=== PATIENT | male | born 1955 | race Caucasian/White ===

== ENCOUNTER 2020-08-04 22:08 | Emergency (ER) | payer OTHER, MEDICARE ==
[2020-08-04] MEDS ORDERED: Betamethasone Valerate 0.1% Crm 15 GM Tube TOP ONE (22:23)
[2020-08-04] MEDS ORDERED: Famotidine 20 MG Tab PO ONE (22:23)
[2020-08-04] MEDS ORDERED: predniSONE 20 MG Tab PO ONE (22:23)
[2020-08-04] MEDS ORDERED: hydrOXYzine HCl 50 MG Tab PO ONE (22:24)
[2020-08-04 22:25] VITALS: BP 138/91; PULSE 88
--- NOTE | 2020-08-04 22:28 | EDM.PDOC ---
ED HPI GENERAL MEDICAL PROBLEM - General Chief Complaint: Skin Complaint Stated Complaint: ALLERGIC REACTION/HIVES Time Seen by Provider: 08/04/20 22:18 Source of Information: Reports: Patient History Limitations: Reports: No Limitations - History of Present Illness INITIAL COMMENTS - FREE TEXT/NARRATIVE: 64-year-old male presents to the ED with complaints of a severely pruritic rash involving the volar aspect of both arms and particular the antecubital fossa's bilaterally perhaps worse on the right side as compared to the left. He states it started between his fingers a week or 10 days ago. It has progressed and severity and intensity to the point that he cannot sleep. Benadryl is not working to control the itch. Currently it is a bad he cannot sleep. Patient feels that it may be spreading to his abdominal wall as well. He has no true hives or urticaria. 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 Onset: Gradual Onset Date: 07/25/20 Duration: Day(s):, Getting Worse Location: Reports: Upper Extremity, Left, Upper Extremity, Right (Ulnar aspect of both forearms in particular the antecubital fossa.) Quality: Reports: Burning, Other Severity: Severe (Ear pruritus) Improves with: Reports: None Worsens with: Reports: Other (Scratching) Context: Denies: Activity, Exercise, Lifting, Sick Contact, Trauma, Other Associated Symptoms: Reports: Cough. Denies: No Other Symptoms, Confusion, Chest Pain (Smoker cough), cough w sputum, Diaphoresis, Fever/Chills, Headaches, Loss of Appetite, Malaise, Nausea/Vomiting Treatments OUTSEWER: Reports: Other (see below) (Been placing cream on the rash which seems to be making it worse. He does not know the name of this however.) - Related Data Allergies Allergy/AdvReac Type Severity Reaction Status Date / Time No Known Allergies Allergy Verified 05/18/16 13:26 Home Meds: Home Meds Betamethasone Valerate 45 gm TP BID PRN #1 tube 08/04/20 [Rx] hydrOXYzine HCL [Hydroxyzine HCl] 50 mg PO Q6H PRN #16 tablet 08/04/20 [Rx] predniSONE [Prednisone] 20 mg PO ASDIRECTED #18 tablet 08/04/20 [Rx] Past Medical History - Past Health History Medical/Surgical History: Denies Medical/Surgical History Musculoskeletal History: Reports: Back Pain, Chronic, Other (See Below) Other Musculoskeletal History: herniated discs causing disability, h/o ankle wound on left ankle, B rotator cuff repair.. Vicious dog bite attack affecting the volar aspect of his right arm which healed by secondary intention. Did suffer muscle damage from this injury as well. Endocrine/Metabolic History: Reports: Diabetes, Type II Social & Family History - Living Situation & Occupation Living situation: Reports: Occupation: Disabled ED ROS GENERAL - Review of Systems Review Of Systems: See Below Constitutional: Reports: Malaise, Weakness, Fatigue (For not being able to sleep.). Denies: Fever, Chills HEENT: Reports: Glasses (Glasses for reading.) Respiratory: Reports: Cough (Occasional nonproductive cough). Denies: Shortness of Breath, Wheezing, Pleuritic Chest Pain Cardiovascular: Denies: Chest Pain, Blood Pressure Problem Endocrine: Reports: Fatigue GI/Abdominal: Denies: Abdominal Pain, Constipation : Reports: Frequency, Other (Nocturia x2.) Musculoskeletal: Reports: Neck Pain (Severe degenerative arthritic change neck and lower back with herniated disks.), Arm Pain (Arm pain), Back Pain Skin: Reports: Other (Both volar forearms and antecubital fossa's.) Neurological: Reports: No Symptoms Psychiatric: Reports: Anxiety, Depression Hematologic/Lymphatic: Reports: No Symptoms Immunologic: Reports: No Symptoms ED EXAM, SKIN/RASH Exam: See Below Exam Limited By: No Limitations General Appearance: Alert, WD/WN, No Apparent Distress, Other (Temperature is 36.4. Heart rate 88 and sinus respiratory is 18 BP 138/91 2 sats 97% room air.) Eye Exam: Bilateral Eye: Normal Inspection (No scleral icterus or blepharal pallor.) Respiratory/Chest: No Respiratory Distress, Lungs Clear, Normal Breath Sounds Cardiovascular: Normal Peripheral Pulses, Regular Rate, Rhythm, No Edema, No Gallop, No Murmur, No Rub Peripheral Pulses: 2+: Carotid (L), Carotid (R), Radial (L), Radial (R) Extremities: Other (Patient has evidence of traumatic injuries to the volar aspect of his mid right forearm. He reports this was from a dog bite many years ago n that had to be repaired surgically. He did suffer some muscle damage to the volar forearm muscles.) Neurological: Alert, Oriented, CN II-XII Intact, Normal Cognition Psychiatric: Normal Affect, Normal Mood Skin: Warm, Dry, Intact, Erythema (She has marked erythema of the entire volar aspect of his right forearm from wrist creases to the antecubital fossa in particular. Skin is somewhat lichenified and thickened in the antecubital fossa indicating this rash has been present for greater than a few weeks. There is slight amount of silver scaling laterally suggesting possibility of psoriasis. Similar findings on the left volar forearm but not to the same degree of severity affecting primarily the antecubital fossa. There is also a very faint erythematous rash on the left lateral abdominal wall again secondary to dry skin. This rash represents a contact dermatitis. At this time we are not able to establish what has gone on to his skin to set off the allergic reaction.) Location, Skin: Upper Extremity, Right, Upper Extremity, Left Characteristics: Macular, Confluent Associated features: Warmth, Inflammation. No: Crusting, Weeping Course - Vital Signs Last Recorded V/S: Last Vital Signs Temp 36.4 C 08/04/20 22:19 Pulse 88 08/04/20 22:19 Resp 18 08/04/20 22:19 BP 138/91 H 08/04/20 22:19 Pulse Ox 97 08/04/20 22:19 - Orders/Labs/Meds Meds: Medications Discontinued Medications Generic Name Dose Route Start Last Admin Trade Name Freq PRN Reason Stop Dose Admin Betamethasone Valerate 30 gm 08/04/20 22:23 Valisone 0.1% [facility] 08/04/20 22:24 ONETIME ONE Famotidine 20 mg 08/04/20 22:23 08/04/20 22:36 Pepcid PO 08/04/20 22:24 20 mg ONETIME ONE Administration Hydroxyzine HCl 50 mg 08/04/20 22:24 08/04/20 22:36 Atarax PO 08/04/20 22:25 50 mg ONETIME ONE Administration Prednisone 30 mg 08/04/20 22:23 08/04/20 22:36 Prednisone PO 08/04/20 22:24 30 mg ONETIME ONE Administration Triamcinolone Acetonide 15 gm 08/04/20 22:38 08/04/20 22:40 Triamcinolone Acetonide 0.1% Crm TOP 08/04/20 22:39 1 applic ONETIME ONE Administration Triamcinolone Acetonide 15 gm 08/04/20 22:38 08/04/20 22:40 Triamcinolone Acetonide 0.1% Crm TOP 08/04/20 22:39 Not Given ONETIME ONE - Radiology Interpretation Free Text/Narrative:: 64-year-old male presents to the ED for evaluation of skin rash to the volar aspect of both forearms and affecting particular the antecubital fossa's of both arms. Rash has been present for greater than 2 weeks and is progressively getting worse. Examination reveals marked erythema with slight lichenification in the antecubital fossa's indicating some degree of chronicity. It represents a contact dermatitis to an unknown substance. Patient will be treated with prednisone 30 mg by mouth now then 20 mg twice daily for 6 days then's 20 mg once daily every morning for another 6 days. Topical thyroid in the ED will be triamcinolone as this is all we have in the hospital. I have written a prescription for betamethasone valerate 0.1% cream to be applied to the area twice daily until the rash is cleared up. Atarax tablets 50 mg every 6 hours needed to relieve itch until rash comes under control. Follow-up advised to the [facility] clinic if not markedly improved in 7 days time Departure - Departure Time of Disposition: 22:51 Disposition: Home, Self-Care 01 Condition: Fair Clinical Impression: Contact dermatitis and eczema - Discharge Information *PRESCRIPTION DRUG MONITORING PROGRAM REVIEWED*: Not Applicable *COPY OF PRESCRIPTION DRUG MONITORING REPORT IN PATIENT SISSY: Not Applicable Prescriptions: Betamethasone Valerate 45 gm TP BID PRN #1 tube PRN Reason: Skin rash hydrOXYzine HCL [Hydroxyzine HCl] 50 mg PO Q6H PRN #16 tablet PRN Reason: Itch relief predniSONE [Prednisone] 20 mg PO ASDIRECTED #18 tablet Referrals: Ramya Corley MD [Primary Care Provider] - Forms: ED Department Discharge Additional Instructions: Evaluation in the emergency room tonight in regards to a contact dermatitis or eczematous rash involving the hands and the volar aspect of both forearms and the particular the antecubital fossa's which is at your elbow joint. Some irritant has gotten onto the skin and soaked into the skin which is set this rash off. This can be something simple as dish soap or any other soap or highly perfumed product. It can be a petrochemical such as diesel fuel, gasoline or other solvents used to clean up oil/ grease. At this time suggest placing only the prescribed medications on the rash and taking oral medications as prescribed to bring it under control. Prednisone tablets to be taken twice daily usually with breakfast and supper meals for 6 days and then once daily in the morning for another 6 days to make sure the rash completely goes away. Topical medication is betamethasone cream to be applied twice daily with one the application is to be used at bedtime. Atarax tablets 50 mg can be taken every 6 hours as needed for itch relief and hopefully will not be required for more than a couple of days as they usually cause sedation. Should notice a dramatic improvement in the rash in the next 48 to 72 hours. Suggest no soaps on the affected skin or if needed only Ivory or Dove hypoallergenic soap. Excessive bathing or washing the area will also dry out the skin and make the rash worse. Sometimes detergents used to clean calls can remain within the clothing and silk into the skin causing this type of rash. Sometimes clothing has to be rinsed twice when washed to make sure that all the soap is out of the material that touches the skin. Aloe up with personal care physician if further problems continue. Sepsis Event Note (ED) - Focused Exam Vital Signs: Vital Signs Temp Pulse Resp BP Pulse Ox 08/04/20 22:19 36.4 C 88 18 138/91 H 97
[2020-08-04] MEDS ORDERED: Triamcinolone Acetonide 0.1% Crm 15 GM Tube TOP ONE ×2 (22:38)
== END 2020-08-04 22:54 | disposition home or self-care (01) ==
LOC: JD.ED 22:08
DX: L25.9 Unspecified contact dermatitis, unspecified cause (principal); E11.9 Type 2 diabetes mellitus without complications
CPT/HCPCS: 99282; A9270; J7512; 99283

== ENCOUNTER 2020-09-22 13:59 | Emergency (ER) | payer OTHER, MEDICARE ==
[2020-09-22] MEDS ORDERED: Sodium Chloride 0.9% 10 ML Syringe FLUSH PRN (14:44)
--- NOTE | 2020-09-22 15:02 | EDM.PDOC ---
ED HPI GENERAL MEDICAL PROBLEM - General Chief Complaint: Respiratory Problem Stated Complaint: COUGH Time Seen by Provider: 09/22/20 14:30 Source of Information: Reports: Patient, RN Notes Reviewed - History of Present Illness INITIAL COMMENTS - FREE TEXT/NARRATIVE: 65 yr old male with cough, chills, dyspnea yesterday that continues today. No known exposure to covid but has been out shopping and has been around some people. Has a smoking hx. No known or documented hx of Htn, diabetes, CAD. He states his chest does feel mildly heavy. Generalized Pain Score (Numeric/FACES): 10 - Related Data Allergies Allergy/AdvReac Type Severity Reaction Status Date / Time No Known Allergies Allergy Verified 05/18/16 13:26 Home Meds: Home Meds Albuterol Sulfate [Proventil Hfa] 1 puff INH ASDIRECTED 09/22/20 [History] Cholecalciferol (Vitamin D3) [Vitamin D3] 1 tab PO DAILY 09/22/20 [History] Loratadine [Claritin] 10 mg PO DAILY 09/22/20 [History] Magnesium Salicylate/Caffeine [Diurex Water Pills] 1 tab PO DAILY 09/22/20 [History] [place] Xl 1 tab PO DAILY 09/22/20 [History] Vitamin E 400 unit PO DAILY 09/22/20 [History] Past Medical History - Past Health History Medical/Surgical History: Denies Medical/Surgical History Cardiovascular History: Reports: Other (See Below) Other Cardiovascular History: retains fluid-on OTC med called water pills Musculoskeletal History: Reports: Back Pain, Chronic, Other (See Below) Other Musculoskeletal History: herniated discs causing disability, h/o ankle wound on left ankle, B rotator cuff repair Psychiatric History: Reports: Anxiety, Depression Endocrine/Metabolic History: Reports: Diabetes, Type II Other Endocrine/Metabolic History: borderline-on no meds - Past Surgical History HEENT Surgical History: Reports: Tonsillectomy Social & Family History - Tobacco Use Tobacco Use Status *Q: Current Every Day Tobacco User Years of Tobacco use: 33 Packs/Tins Daily: 0.3 - Caffeine Use Caffeine Use: Reports: None - Recreational Drug Use Recreational Drug Use: No - Living Situation & Occupation Living situation: Reports: Occupation: Disabled ED ROS GENERAL - Review of Systems Review Of Systems: See Below Constitutional: Reports: Chills. Denies: Fever HEENT: Denies: Sinus Problem, Throat Pain Respiratory: Reports: Shortness of Breath, Cough Cardiovascular: Reports: Chest Pain GI/Abdominal: Reports: Constipation. Denies: Abdominal Pain, Diarrhea, Nausea, Vomiting Musculoskeletal: Reports: Other (generalized achiness) Skin: Reports: No Symptoms Neurological: Reports: No Symptoms ED EXAM, GENERAL - Physical Exam Exam: See Below General Appearance: Alert Throat/Mouth: Normal Inspection Head: Atraumatic Neck: Supple, Other (No JVD) Respiratory/Chest: No Respiratory Distress, Lungs Clear, Normal Breath Sounds. No: Rhonchi, Wheezing Cardiovascular: Regular Rate, Rhythm GI/Abdominal: Soft, Non-Tender Extremities: No: Pedal Edema, Leg Pain, Increased Warmth, Redness Neurological: Alert, Oriented, No Motor/Sensory Deficits Skin Exam: Warm, Dry, Normal Color, No Rash #1 Interpretation EKG Date: 09/22/20 Rhythm: NSR [place]: Normal P-Wave: Present QRS: LBBB ST-T: Elevated (mild st elevation V2-5) Course - Vital Signs Last Recorded V/S: Last Vital Signs Temp 99.3 F 09/22/20 20:53 Pulse 102 H 09/22/20 20:53 Resp 20 09/22/20 20:53 BP 119/81 09/22/20 20:53 Pulse Ox 95 09/22/20 20:53 - Orders/Labs/Meds Orders: Active Orders 24 hr Category Date Time Status Peripheral IV Insertion Adult [OM.PC] Stat Oth 09/22/20 14:44 Ordered Labs: Laboratory Tests 09/22/20 09/22/20 09/22/20 Range/Units 14:55 14:55 14:55 WBC 9.04 (4.23-9.07) K/mm3 RBC 4.61 L (4.63-6.08) M/mm3 Hgb 13.9 (13.7-17.5) gm/dl Hct 44.9 (40.1-51.0) % MCV 97.4 H (79.0-92.2) fl MCH 30.2 (25.7-32.2) pg MCHC 31.0 L (32.2-35.5) g/dl RDW Std Deviation 50.3 H (35.1-43.9) fL Plt Count 229 (163-337) K/mm3 MPV 10.0 (9.4-12.3) fl Neut % (Auto) 72.7 H (34.0-67.9) % Lymph % (Auto) 13.8 L (21.8-53.1) % [place] % (Auto) 11.1 (5.3-12.2) % Eos % (Auto) 1.5 (0.8-7.0) Baso % (Auto) 0.6 (0.1-1.2) % Neut # (Auto) 6.57 H (1.78-5.38) K/mm3 Lymph # (Auto) 1.25 L (1.32-3.57) K/mm3 [place] # (Auto) 1.00 H (0.30-0.82) K/mm3 Eos # (Auto) 0.14 (0.04-0.54) K/mm3 Baso # (Auto) 0.05 (0.01-0.08) K/mm3 D-Dimer, Quantitative 1.78 H (0.19-0.50) mg/L Sodium (136-145) mEq/L Potassium (3.5-5.1) mEq/L Chloride (98-107) mEq/L Carbon Dioxide (21-32) mEq/L Anion Gap (5-15) BUN (7-18) mg/dL Creatinine (0.7-1.3) mg/dL Est Cr Clr Drug Dosing mL/min Estimated GFR (MDRD) (>60) mL/min BUN/Creatinine Ratio (14-18) Glucose (80-115) mg/dL Calcium (8.5-10.1) mg/dL Ferritin (26-388) ng/ml Total Bilirubin (0.2-1.0) mg/dL AST (15-37) U/L ALT (16-63) U/L Alkaline Phosphatase (46-116) U/L Lactate Dehydrogenase (85-227) U/L Troponin I (0.00-0.056) ng/mL C-Reactive Protein 2.5 H* (<1.0) mg/dL NT-Pro-B Natriuret Pep (0-125) pg/mL Total Protein (6.4-8.2) g/dl Albumin (3.4-5.0) g/dl Globulin gm/dL Albumin/Globulin Ratio (1-2) SARS-CoV-2 RNA (ALFONZO) (NEGATIVE) 09/22/20 09/22/20 09/22/20 Range/Units 14:55 14:55 14:55 WBC (4.23-9.07) K/mm3 RBC (4.63-6.08) M/mm3 Hgb (13.7-17.5) gm/dl Hct (40.1-51.0) % MCV (79.0-92.2) fl MCH (25.7-32.2) pg MCHC (32.2-35.5) g/dl RDW Std Deviation (35.1-43.9) fL Plt Count (163-337) K/mm3 MPV (9.4-12.3) fl Neut % (Auto) (34.0-67.9) % Lymph % (Auto) (21.8-53.1) % [place] % (Auto) (5.3-12.2) % Eos % (Auto) (0.8-7.0) Baso % (Auto) (0.1-1.2) % Neut # (Auto) (1.78-5.38) K/mm3 Lymph # (Auto) (1.32-3.57) K/mm3 [place] # (Auto) (0.30-0.82) K/mm3 Eos # (Auto) (0.04-0.54) K/mm3 Baso # (Auto) (0.01-0.08) K/mm3 D-Dimer, Quantitative (0.19-0.50) mg/L Sodium 139 (136-145) mEq/L Potassium 3.9 (3.5-5.1) mEq/L Chloride 104 (98-107) mEq/L Carbon Dioxide 25 (21-32) mEq/L Anion Gap 13.9 (5-15) BUN 14 (7-18) mg/dL Creatinine 1.3 (0.7-1.3) mg/dL Est Cr Clr Drug Dosing 66.74 mL/min Estimated GFR (MDRD) 56 (>60) mL/min BUN/Creatinine Ratio 10.8 L (14-18) Glucose 161 H (80-115) mg/dL Calcium 8.9 (8.5-10.1) mg/dL Ferritin 72 (26-388) ng/ml Total Bilirubin 0.6 (0.2-1.0) mg/dL AST 20 (15-37) U/L ALT 35 (16-63) U/L Alkaline Phosphatase 84 (46-116) U/L Lactate Dehydrogenase 191 (85-227) U/L Troponin I 0.076 H* (0.00-0.056) ng/mL C-Reactive Protein (<1.0) mg/dL NT-Pro-B Natriuret Pep (0-125) pg/mL Total Protein 7.2 (6.4-8.2) g/dl Albumin 3.2 L (3.4-5.0) g/dl Globulin 4.0 gm/dL Albumin/Globulin Ratio 0.8 L (1-2) SARS-CoV-2 RNA (ALFONZO) (NEGATIVE) 09/22/20 09/22/20 09/22/20 Range/Units 14:55 16:38 16:50 WBC (4.23-9.07) K/mm3 RBC (4.63-6.08) M/mm3 Hgb (13.7-17.5) gm/dl Hct (40.1-51.0) % MCV (79.0-92.2) fl MCH (25.7-32.2) pg MCHC (32.2-35.5) g/dl RDW Std Deviation (35.1-43.9) fL Plt Count (163-337) K/mm3 MPV (9.4-12.3) fl Neut % (Auto) (34.0-67.9) % Lymph % (Auto) (21.8-53.1) % [place] % (Auto) (5.3-12.2) % Eos % (Auto) (0.8-7.0) Baso % (Auto) (0.1-1.2) % Neut # (Auto) (1.78-5.38) K/mm3 Lymph # (Auto) (1.32-3.57) K/mm3 [place] # (Auto) (0.30-0.82) K/mm3 Eos # (Auto) (0.04-0.54) K/mm3 Baso # (Auto) (0.01-0.08) K/mm3 D-Dimer, Quantitative (0.19-0.50) mg/L Sodium (136-145) mEq/L Potassium (3.5-5.1) mEq/L Chloride (98-107) mEq/L Carbon Dioxide (21-32) mEq/L Anion Gap (5-15) BUN (7-18) mg/dL Creatinine (0.7-1.3) mg/dL Est Cr Clr Drug Dosing mL/min Estimated GFR (MDRD) (>60) mL/min BUN/Creatinine Ratio (14-18) Glucose (80-115) mg/dL Calcium (8.5-10.1) mg/dL Ferritin (26-388) ng/ml Total Bilirubin (0.2-1.0) mg/dL AST (15-37) U/L ALT (16-63) U/L Alkaline Phosphatase (46-116) U/L Lactate Dehydrogenase (85-227) U/L Troponin I 0.067 H* (0.00-0.056) ng/mL C-Reactive Protein (<1.0) mg/dL NT-Pro-B Natriuret Pep 6059 H (0-125) pg/mL Total Protein (6.4-8.2) g/dl Albumin (3.4-5.0) g/dl Globulin gm/dL Albumin/Globulin Ratio (1-2) SARS-CoV-2 RNA (ALFONZO) Negative (NEGATIVE) Meds: Medications Discontinued Medications Generic Name Dose Route Start Last Admin Trade Name Freq PRN Reason Stop Dose Admin Aspirin 324 mg 09/22/20 18:20 09/22/20 18:46 Aspirin PO 09/22/20 18:21 324 mg ONETIME ONE Administration Heparin Sodium (Porcine) 5,000 units 09/22/20 19:20 09/22/20 19:46 Heparin Sodium IVPUSH 09/22/20 19:21 5,000 units .BOLUS ONE Administration Sodium Chloride 1,000 mls @ 999 mls/hr 09/22/20 16:30 09/22/20 16:31 Normal Saline IV 999 mls/hr ONETIME LEIGHA Administration Sodium Chloride 100 mls @ 60 mls/min 09/22/20 17:45 09/22/20 18:16 Normal Saline IV 60 mls/min ASDIRECTED LEIGHA Administration Heparin Sodium/Dextrose 25,000 units in 500 mls @ 37.557 mls/hr 09/22/20 19:30 09/22/20 19:49 Heparin 25,000 Units In D5w 500 Ml IV 18 units/kg/hr TITRATE LEIGHA 37.557 mls/hr Administration Protocol 18 UNITS/KG/HR Iopamidol 100 ml 09/22/20 17:42 09/22/20 18:15 Isovue-370 (76%) IVPUSH 09/22/20 17:43 100 ml ONETIME ONE Administration Sodium Chloride 10 ml 09/22/20 14:44 09/22/20 15:05 Saline Flush FLUSH 10 ml ASDIRECTED PRN Administration Keep Vein Open Sodium Chloride 10 ml 09/22/20 17:42 09/22/20 18:17 Saline Flush FLUSH 09/22/20 17:43 10 ml NOW STA Administration - Re-Assessments/Exams Free Text/Narrative Re-Assessment/Exam: 09/22/20 17:22. Trop came back elevated at .076. D dimer 1.78. CXR shows cardiomegally, mild pulmonary congestion, no definite infiltrates. waiting for a repeat trop. Have ordered CT pul angiogram. 18:00 repeat trop .067 so that is stable. covid screen did come back neg. Getting his CT pul angiogram at this time. 09/22/20 18:58. CT pul angio shows small pulmonary emboli R lower lung. I did discuss this with Dr Cooper, our Hospitalist personal injury specialist. He believes patient would be better served to go to [facility] with his elevated trop, mediastinal adenopathy, and CHF which is a change from 1 hr ago. 09/22/20 19:04. Have called both [facility], they are both on diversion. 09/22/20 19:48 have been visiting with [facility] to see if they can take him. Waiting to hear back from them. 09/22/20 20:[address] [place], [facility] does accept patient in transfer. We will send him fixed wing. He has had Heparin IV bolus, is now on a Heparin drip. Vitals have been stable. Departure - Departure Time of Disposition: 19:46 Disposition: DC/Tfer to Acute Hospital 02 Condition: Serious Clinical Impression: Mediastinal adenopathy Pulmonary embolism Qualifiers: Pulmonary embolism type: unspecified Chronicity: acute Acute cor pulmonale presence: unspecified Qualified Code(s): I26.99 - Other pulmonary embolism without acute cor pulmonale CHF (congestive heart failure) Qualifiers: Heart failure type: unspecified Heart failure chronicity: acute Qualified Code(s): I50.9 - Heart failure, unspecified - Discharge Information Referrals: Ramya Corley MD [Primary Care Provider] - Forms: ED Department Discharge - My Orders Last 24 Hours: My Active Orders 09/22/20 14:44 Peripheral IV Insertion Adult [OM.PC] Stat - Assessment/Plan Last 24 Hours: My Active Orders 09/22/20 14:44 Peripheral IV Insertion Adult [OM.PC] Stat
[2020-09-22] MEDS ORDERED: Sodium Chloride 0.9% 1,000 ML IV SCH (16:30)
[2020-09-22] MEDS ORDERED: Iopamidol 755 Mg/ML 100 ML Bottle IVPUSH ONE (17:42)
[2020-09-22] MEDS ORDERED: Sodium Chloride 0.9% 10 ML Syringe FLUSH STA (17:42)
[2020-09-22] MEDS ORDERED: Sodium Chloride 0.9% 100 ML IV SCH (17:45)
[2020-09-22] MEDS ORDERED: Aspirin 81 MG Tab.Chew PO ONE (18:20)
--- NOTE | 2020-09-22 18:41 | CT ---
CT chest Technique: Multiple axial sections were obtained through the chest. Study was performed with contrast. Study was also performed as a pulmonary angiogram protocol. Findings: Small pulmonary emboli are seen within the right lower lobe. No other pulmonary emboli are appreciated. Slightly prominent lymph nodes are seen within the mediastinum. Largest lymph node measures 2.0 cm. Aorta shows no aneurysm. Heart is slightly enlarged. Very minimal coronary artery calcification is noted. Small portion of the visualized upper abdominal structures show no discrete abnormality. Small right-sided pleural effusion is noted. Small portion of the left lung base is not included on the exam. Very mild atelectasis is seen adjacent to the pleural effusion. Bone window settings were reviewed which show scattered degenerative change within the spine. No acute osseous finding is appreciated. Impression: 1. Small pulmonary emboli within the right lower lung. Right sided pleural effusion is seen with mild right basilar atelectasis. 2. Heart is mildly enlarged with mild coronary artery calcification. 3. Slightly prominent lymph nodes within the mediastinum. These are nonspecific for change from previous disease versus early neoplasm. Diagnostic code #9
[2020-09-22] MEDS ORDERED: Heparin Sodium 5,000 Units/ML Vial IVPUSH ONE (19:20)
[2020-09-22] MEDS ORDERED: Heparin Sodium/D5W 25,000 UNITS/500 ML BAG IV SCH (19:30)
[2020-09-22 20:56] VITALS: BP 119/81; PULSE 102
--- NOTE | 2020-09-23 08:59 | CR ---
Chest: Portable view of the chest was obtained. Comparison: Prior chest x-ray of 09/28/19. Heart is enlarged. Upper mediastinum is within normal limits. Slight areas of atelectasis is seen with the left base. Pulmonary arteries are minimally congested. Lungs otherwise are clear. Bony structures are grossly intact. Impression: 1. Mild right basilar atelectasis. 2. Slight central pulmonary vascular congestion and cardiomegaly. Diagnostic code #2
== END 2020-09-22 21:10 ==
LOC: JD.ED 13:59
DX: I26.99 Other pulmonary embolism without acute cor pulmonale (principal); R59.0 Localized enlarged lymph nodes; I50.9 Heart failure, unspecified; E11.9 Type 2 diabetes mellitus without complications; F17.210 Nicotine dependence, cigarettes, uncomplicated; I44.7 Left bundle-branch block, unspecified; Z79.899 Other long term (current) drug therapy; Z20.828 Contact with and (suspected) exposure to other viral communicable diseases
CPT/HCPCS: 36415; 71045; 71275; 80053; 82728; 83615; 83880; 84484; 85025; 85379; 86140; 87635; 93005; 96365; 99285; A9270; J1644; J7030; Q9967; 93010; 99284; U0002

== ENCOUNTER 2021-03-01 08:45 | Inpatient (IN) | payer OTHER, MEDICARE ==
--- NOTE | 2021-03-01 09:10 | EDM.PDOC ---
ED HPI GENERAL MEDICAL PROBLEM - General Chief Complaint: Respiratory Problem Stated Complaint: SOB Time Seen by Provider: 03/01/21 09:09 Source of Information: Reports: Patient History Limitations: Reports: No Limitations - History of Present Illness INITIAL COMMENTS - FREE TEXT/NARRATIVE: 65-year-old male presents to the ED in respiratory distress. He states he has been spray painting numerous vehicles in the shop at home over the last few days and believes the fumes have made his lungs ill. Also reports that this will happen sometimes when the humidity increases. He used to be a heavy cigarette smoker. Currently has cut down to half pack a day. Cough is still bringing up whitish sputum. He has not had no COVID-19 illness. No fever or chills. O2 sats presentation to the ED were only 88%. Is up to 93--94% on 2 L/min by nasal cannula. He feels better already just some being on the oxygen. He was up all night because he cannot lie down to breathe. Denies any hemoptysis. No fever no chills. He has no documented history of congestive heart failure. [facility] on him in the past but he has never had one done. He therefore has no coronary artery stents. Onset: Gradual Onset Date: 02/27/21 Duration: Day(s):, Getting Worse Location: Reports: Chest (Dyspnea at rest.) Quality: Reports: Other (Shortness shortness of breath at rest worsened by) Severity: Severe (exertion.) Improves with: Reports: Rest Worsens with: Reports: Other (Worsened by movement.) Context: Denies: Activity, Exercise, Lifting, Sick Contact, Trauma, Other Associated Symptoms: Reports: Cough, cough w sputum (White to clear sputum), Loss of Appetite, Malaise, Shortness of Breath, Weakness. 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 (see below) (Very little relief with his albuterol inhaler.) - Related Data Allergies Allergy/AdvReac Type Severity Reaction Status Date / Time Iodinated Contrast Media Allergy Airway Verified 03/01/21 15:30 Tightness Home Meds: Home Meds Albuterol Sulfate [Proventil Hfa] 1 puff INH ASDIRECTED 09/22/20 [History] Cholecalciferol (Vitamin D3) [Vitamin D3] 1 tab PO DAILY 09/22/20 [History] Loratadine [Claritin] 10 mg PO DAILY 09/22/20 [History] Magnesium Salicylate/Caffeine [Diurex Water Pills] 1 tab PO DAILY 09/22/20 [History] [place] Xl 1 tab PO DAILY 09/22/20 [History] Vitamin E 400 unit PO DAILY 09/22/20 [History] Past Medical History - Past Health History Medical/Surgical History: Denies Medical/Surgical History Cardiovascular History: Reports: Other (See Below) Other Cardiovascular History: retains fluid-on OTC med called water pills Musculoskeletal History: Reports: Back Pain, Chronic, Other (See Below) Other Musculoskeletal History: herniated discs causing disability, h/o ankle wound on left ankle, B rotator cuff repair Psychiatric History: Reports: Anxiety, Depression Endocrine/Metabolic History: Reports: Diabetes, Type II Other Endocrine/Metabolic History: borderline-on no meds - Past Surgical History HEENT Surgical History: Reports: Tonsillectomy Social & Family History - Tobacco Core Measures Tobacco Use/Smoking Within Last 30 Days: Yes Smoking Frequency Within Last 30 Days: Reports: Five or More Cigarettes Per Day - Caffeine Use Caffeine Use: Reports: None - Living Situation & Occupation Living situation: Reports: Occupation: Disabled ED [facility] - Review of Systems Review Of Systems: See Below Constitutional: Reports: Malaise, Weakness, Fatigue, Decreased Appetite. Denies: Fever, Chills, Weight Loss HEENT: Reports: No Symptoms Respiratory: Reports: Shortness of Breath, Wheezing, Cough, Sputum. Denies: Pleuritic Chest Pain, Hemoptysis, Other (White sputum) Cardiovascular: Reports: Dyspnea on Exertion ( granulating in.), Edema (Chronic dependent edema and wears compression stockings bilaterally. Has an ulceration on the medial aspect of his left leg that is slowly), Orthopnea. Denies: Blood Pressure Problem, Claudication, Lightheadedness, Palpitations, Syncope Endocrine: Reports: Fatigue GI/Abdominal: Reports: Abdominal Pain (Abdominal blood pressure discomfort from aerophagia. States), Decreased Appetite. Denies: Diarrhea, Difficulty Swallowing, Distension, Flatus, Hematemesis, Hematochezia, Melena, Mucous in Stool, Nausea, Stool Incontinence, Vomiting, Other : Reports: Frequency, Other Musculoskeletal: Reports: Neck Pain, Shoulder Pain, Back Pain ( Knees hips), Joint Pain (Nocturia usually x2 or 3.) Skin: Reports: No Symptoms Neurological: Reports: No Symptoms. Denies: Confusion, Dizziness, Headache, Numbness, Syncope, Tingling, Weakness Psychiatric: Reports: Anxiety Hematologic/Lymphatic: Reports: No Symptoms Immunologic: Reports: No Symptoms ED EXAM, GENERAL - Physical Exam Exam: See Below Exam Limited By: No Limitations General Appearance: Alert, WD/WN, Moderate Distress, Other (He is quite uncomfortable and rolling side to side. O2 sats were 92 to 93% on 2 L and he states it is making him feel somewhat better. Vital signs show temperature of 36.7 with a heart rate of 97 and sinus respiratory 16 with O2 sats of 93% on 2 L. BP 108/86.) Eye Exam: Bilateral Eye: Normal Inspection, PERRL (There is no scleral icterus or blepharal pallor.) Throat/Mouth: Other (Tongue is dry and coated and slightly enlarged.) Head: Atraumatic, Normocephalic Neck: Normal Inspection, Supple, Non-Tender, Full Range of Motion, Other (Patient has a large ball neck.). No: Carotid Bruit ( Unable to identify any jugular venous pulsations.), Lymphadenopathy (L), Lymphadenopathy (R) Respiratory/Chest: Normal Breath Sounds, Respiratory Distress (Tachypnea at rest.), Decreased Breath Sounds (Breath sounds to the bases are mildly decreased by 10 to 15%.). No: Crackles, Rales, Rhonchi, Wheezing Cardiovascular: Normal Peripheral Pulses, Regular Rate, Rhythm, No Edema, No Gallop, No JVD, No Murmur, No Rub Peripheral Pulses: 1+: Posterior Tibial (L), Posterior Tibial (R), Dorsalis Pedis (L), Dorsalis Pedis (R), 2+: Carotid (L), Carotid (R) GI/Abdominal: Normal Bowel Sounds, Soft, Non-Tender, No Organomegaly, No Mass, Pelvis Stable, Other (Abdominal girth limits ability to palpate solid organs.) Back Exam: Decreased Range of Motion. No: CVA Tenderness (L), CVA Tenderness (R) Extremities: Normal Inspection, Pedal Edema (3+ pitting edema bilaterally. Patient has a nonhealing ulcer medial aspect of the left lower leg just above his medial malleolus. It is tender to touch.) Neurological: Alert, Oriented, CN II-XII Intact, Normal Cognition Psychiatric: Anxious Skin Exam: Warm, Dry, Normal Color, Other (Patient has a superficial ulceration on the medial aspect of his left lower leg that appears clean and is being dressed daily.) #1 Interpretation EKG Date: 03/01/21 Time: 08:54 Rhythm: NSR Rate (Beats/Min): 96 [place]: LAD-Left [place] Deviation (-57 degrees) P-Wave: Present (P waves are inverted in lead V1 V2 suggesting the leads are in malposition. Consider mild atrial enlargement) QRS: Other (Left ventricular hypertrophy pattern with tall R wave in 1.) ST-T: Other (There is T wave inversion in leads I, aVL and V6 cannot rule out lateral apical wall ischemia.) EKG Interpretation Comments: Abnormal ECG Course - Vital Signs Last Recorded V/S: Last Vital Signs Temp 36.7 C 03/01/21 08:54 Pulse 97 03/01/21 08:54 Resp 16 03/01/21 08:54 BP 108/86 03/01/21 08:54 Pulse Ox 93 L 03/01/21 09:16 - Orders/Labs/Meds Orders: Active Orders 24 hr Category Date Time Status Sodium Chloride 0.9% [Saline Flush] Med 03/01/21 10:47 Active 10 ml FLUSH ONETIME PRN Medication Orders Acetaminophen (Acetaminophen 325 Mg Tab) 650 mg PO Q4H PRN PRN Reason: Pain (Mild 1-3)/fever Albuterol/Ipratropium (Albuterol/Ipratropium 3.0-0.5 Mg/3 Ml Neb Soln) 3 ml NEB Q4H PRN PRN Reason: Shortness Of Breath/wheezing Docusate Sodium (Docusate Sodium 100 Mg Cap) 100 mg PO BID PRN PRN Reason: Constipation Furosemide (Furosemide 40 Mg/4 Ml Vial) 40 mg IVPUSH BID LEIGHA Sodium Chloride (Normal Saline) 1,000 mls @ 75 mls/hr IV ASDIRECTED LEIGHA Stop: 03/02/21 04:49 Insulin Human Lispro (Insulin Lispro 100 Unit/Ml 10 Ml Vial) 0 unit SUBCUT QIDACANDBED LEIGHA; Protocol Magnesium Hydroxide (Magnesium Hydroxide 400 Mg/5 Ml Susp 30 Ml Cup) 30 ml PO Q12H PRN PRN Reason: Constipation Miscellaneous Information (Remove Nicotine Patch) 1 ea TRDERM Q24H [facility] Nicotine (Nicotine 14 Mg/24 Hr Patch) 14 mg TRDERM Q24H [facility] Ondansetron HCl (Ondansetron 4 Mg/2 Ml Sdv) 4 mg IV Q6H PRN PRN Reason: Nausea/Vomiting Rivaroxaban (Rivaroxaban 15 Mg Tab) 15 mg PO BID LEIGHA Stop: 03/22/21 21:01 Sodium Chloride (Sodium Chloride 0.9% 10 Ml Syringe) 10 ml FLUSH ONETIME PRN PRN Reason: IV FLUSH Last Admin: 03/01/21 12:09 Dose: 10 ml Documented by: BRYANT Labs: Laboratory Tests 03/01/21 03/01/21 03/01/21 Range/Units 08:55 08:55 08:55 WBC 10.29 H (4.23-9.07) K/mm3 RBC 4.40 L (4.63-6.08) M/mm3 Hgb 13.9 (13.7-17.5) gm/dl Hct 42.6 (40.1-51.0) % MCV 96.8 H (79.0-92.2) fl MCH 31.6 (25.7-32.2) pg MCHC 32.6 (32.2-35.5) g/dl RDW Std Deviation 52.6 H (35.1-43.9) fL Plt Count 210 (163-337) K/mm3 MPV 10.5 (9.4-12.3) fl Neut % (Auto) 73.6 H (34.0-67.9) % Lymph % (Auto) 11.6 L (21.8-53.1) % [place] % (Auto) 11.7 (5.3-12.2) % Eos % (Auto) 2.1 (0.8-7.0) Baso % (Auto) 0.6 (0.1-1.2) % Neut # (Auto) 7.58 H (1.78-5.38) K/mm3 Lymph # (Auto) 1.19 L (1.32-3.57) K/mm3 [place] # (Auto) 1.20 H (0.30-0.82) K/mm3 Eos # (Auto) 0.22 (0.04-0.54) K/mm3 Baso # (Auto) 0.06 (0.01-0.08) K/mm3 PT (9.7-12.0) SECONDS INR APTT (21.7-31.4) SECONDS D-Dimer, Quantitative (0.19-0.50) mg/L Puncture Site ABG pH (7.35-7.45) ABG pCO2 (35.0-45.0) mmHg ABG pO2 (80.0-100.0) mmHg ABG HCO3 (22.0-26.0) meq/L ABG O2 Saturation (96.0-97.0) % ABG Base Excess (-2-2.0) Vishal Test O2 Delivery Device Oxygen Flow Rate Sodium 142 (136-145) mEq/L Potassium 4.4 (3.5-5.1) mEq/L Chloride 109 H (98-107) mEq/L Carbon Dioxide 21 (21-32) mEq/L Anion Gap 16.4 H (5-15) BUN 16 (7-18) mg/dL Creatinine 1.3 (0.7-1.3) mg/dL Est Cr Clr Drug Dosing 66.74 mL/min Estimated GFR (MDRD) 56 (>60) mL/min BUN/Creatinine Ratio 12.3 L (14-18) Glucose 148 H (70-99) mg/dL Hemoglobin A1c ( - 5.6) % Lactic Acid (0.4-2.0) mmol/L Calcium 7.8 L (8.5-10.1) mg/dL Phosphorus (2.6-4.7) mg/dL Magnesium 1.6 L (1.8-2.4) mg/dL Total Bilirubin 0.7 (0.2-1.0) mg/dL AST 47 H (15-37) U/L ALT 56 (16-63) U/L Alkaline Phosphatase 94 (46-116) U/L Troponin I 0.066 H* (0.00-0.056) ng/mL C-Reactive Protein 4.4 H* (<1.0) mg/dL NT-Pro-B Natriuret Pep 5959 H (0-125) pg/mL Total Protein 6.8 (6.4-8.2) g/dl Albumin 3.0 L (3.4-5.0) g/dl Globulin 3.8 gm/dL Albumin/Globulin Ratio 0.8 L (1-2) TSH 3rd Generation (0.358-3.74) uIU/mL Ethyl Alcohol (0.00) gm% SARS-CoV-2 RNA (ALFONZO) (NEGATIVE) 03/01/21 03/01/21 03/01/21 Range/Units 08:55 08:55 08:55 WBC (4.23-9.07) K/mm3 RBC (4.63-6.08) M/mm3 Hgb (13.7-17.5) gm/dl Hct (40.1-51.0) % MCV (79.0-92.2) fl MCH (25.7-32.2) pg MCHC (32.2-35.5) g/dl RDW Std Deviation (35.1-43.9) fL Plt Count (163-337) K/mm3 MPV (9.4-12.3) fl Neut % (Auto) (34.0-67.9) % Lymph % (Auto) (21.8-53.1) % [place] % (Auto) (5.3-12.2) % Eos % (Auto) (0.8-7.0) Baso % (Auto) (0.1-1.2) % Neut # (Auto) (1.78-5.38) K/mm3 Lymph # (Auto) (1.32-3.57) K/mm3 [place] # (Auto) (0.30-0.82) K/mm3 Eos # (Auto) (0.04-0.54) K/mm3 Baso # (Auto) (0.01-0.08) K/mm3 PT (9.7-12.0) SECONDS INR APTT (21.7-31.4) SECONDS D-Dimer, Quantitative (0.19-0.50) mg/L Puncture Site ABG pH (7.35-7.45) ABG pCO2 (35.0-45.0) mmHg ABG pO2 (80.0-100.0) mmHg ABG HCO3 (22.0-26.0) meq/L ABG O2 Saturation (96.0-97.0) % ABG Base Excess (-2-2.0) Vishal Test O2 Delivery Device Oxygen Flow Rate Sodium (136-145) mEq/L Potassium (3.5-5.1) mEq/L Chloride (98-107) mEq/L Carbon Dioxide (21-32) mEq/L Anion Gap (5-15) BUN (7-18) mg/dL Creatinine (0.7-1.3) mg/dL Est Cr Clr Drug Dosing mL/min Estimated GFR (MDRD) (>60) mL/min BUN/Creatinine Ratio (14-18) Glucose (70-99) mg/dL Hemoglobin A1c 8.0 H ( - 5.6) % Lactic Acid (0.4-2.0) mmol/L Calcium (8.5-10.1) mg/dL Phosphorus 3.1 (2.6-4.7) mg/dL Magnesium (1.8-2.4) mg/dL Total Bilirubin (0.2-1.0) mg/dL AST (15-37) U/L ALT (16-63) U/L Alkaline Phosphatase (46-116) U/L Troponin I (0.00-0.056) ng/mL C-Reactive Protein (<1.0) mg/dL NT-Pro-B Natriuret Pep (0-125) pg/mL Total Protein (6.4-8.2) g/dl Albumin (3.4-5.0) g/dl Globulin gm/dL Albumin/Globulin Ratio (1-2) TSH 3rd Generation 0.741 (0.358-3.74) uIU/mL Ethyl Alcohol (0.00) gm% SARS-CoV-2 RNA (ALFONZO) (NEGATIVE) 03/01/21 03/01/21 03/01/21 Range/Units 08:55 09:17 09:38 WBC (4.23-9.07) K/mm3 RBC (4.63-6.08) M/mm3 Hgb (13.7-17.5) gm/dl Hct (40.1-51.0) % MCV (79.0-92.2) fl MCH (25.7-32.2) pg MCHC (32.2-35.5) g/dl RDW Std Deviation (35.1-43.9) fL Plt Count (163-337) K/mm3 MPV (9.4-12.3) fl Neut % (Auto) (34.0-67.9) % Lymph % (Auto) (21.8-53.1) % [place] % (Auto) (5.3-12.2) % Eos % (Auto) (0.8-7.0) Baso % (Auto) (0.1-1.2) % Neut # (Auto) (1.78-5.38) K/mm3 Lymph # (Auto) (1.32-3.57) K/mm3 [place] # (Auto) (0.30-0.82) K/mm3 Eos # (Auto) (0.04-0.54) K/mm3 Baso # (Auto) (0.01-0.08) K/mm3 PT 12.1 H (9.7-12.0) SECONDS INR 1.13 APTT 23.4 (21.7-31.4) SECONDS D-Dimer, Quantitative 11.93 H (0.19-0.50) mg/L Puncture Site Lt radial ABG pH 7.39 (7.35-7.45) ABG pCO2 35.7 (35.0-45.0) mmHg ABG pO2 61.0 L (80.0-100.0) mmHg ABG HCO3 21.1 L (22.0-26.0) meq/L ABG O2 Saturation 86.8 L (96.0-97.0) % ABG Base Excess -2.7 L (-2-2.0) Vishal Test Positive O2 Delivery Device Nasal cannula Oxygen Flow Rate 2.0 Sodium (136-145) mEq/L Potassium (3.5-5.1) mEq/L Chloride (98-107) mEq/L Carbon Dioxide (21-32) mEq/L Anion Gap (5-15) BUN (7-18) mg/dL Creatinine (0.7-1.3) mg/dL Est Cr Clr Drug Dosing mL/min Estimated GFR (MDRD) (>60) mL/min BUN/Creatinine Ratio (14-18) Glucose (70-99) mg/dL Hemoglobin A1c ( - 5.6) % Lactic Acid (0.4-2.0) mmol/L Calcium (8.5-10.1) mg/dL Phosphorus (2.6-4.7) mg/dL Magnesium (1.8-2.4) mg/dL Total Bilirubin (0.2-1.0) mg/dL AST (15-37) U/L ALT (16-63) U/L Alkaline Phosphatase (46-116) U/L Troponin I (0.00-0.056) ng/mL C-Reactive Protein (<1.0) mg/dL NT-Pro-B Natriuret Pep (0-125) pg/mL Total Protein (6.4-8.2) g/dl Albumin (3.4-5.0) g/dl Globulin gm/dL Albumin/Globulin Ratio (1-2) TSH 3rd Generation (0.358-3.74) uIU/mL Ethyl Alcohol 0.00 (0.00) gm% SARS-CoV-2 RNA (ALFONZO) (NEGATIVE) 03/01/21 03/01/21 Range/Units 09:38 09:50 WBC (4.23-9.07) K/mm3 RBC (4.63-6.08) M/mm3 Hgb (13.7-17.5) gm/dl Hct (40.1-51.0) % MCV (79.0-92.2) fl MCH (25.7-32.2) pg MCHC (32.2-35.5) g/dl RDW Std Deviation (35.1-43.9) fL Plt Count (163-337) K/mm3 MPV (9.4-12.3) fl Neut % (Auto) (34.0-67.9) % Lymph % (Auto) (21.8-53.1) % [place] % (Auto) (5.3-12.2) % Eos % (Auto) (0.8-7.0) Baso % (Auto) (0.1-1.2) % Neut # (Auto) (1.78-5.38) K/mm3 Lymph # (Auto) (1.32-3.57) K/mm3 [place] # (Auto) (0.30-0.82) K/mm3 Eos # (Auto) (0.04-0.54) K/mm3 Baso # (Auto) (0.01-0.08) K/mm3 PT (9.7-12.0) SECONDS INR APTT (21.7-31.4) SECONDS D-Dimer, Quantitative (0.19-0.50) mg/L Puncture Site ABG pH (7.35-7.45) ABG pCO2 (35.0-45.0) mmHg ABG pO2 (80.0-100.0) mmHg ABG HCO3 (22.0-26.0) meq/L ABG O2 Saturation (96.0-97.0) % ABG Base Excess (-2-2.0) Vishal Test O2 Delivery Device Oxygen Flow Rate Sodium (136-145) mEq/L Potassium (3.5-5.1) mEq/L Chloride (98-107) mEq/L Carbon Dioxide (21-32) mEq/L Anion Gap (5-15) BUN (7-18) mg/dL Creatinine (0.7-1.3) mg/dL Est Cr Clr Drug Dosing mL/min Estimated GFR (MDRD) (>60) mL/min BUN/Creatinine Ratio (14-18) Glucose (70-99) mg/dL Hemoglobin A1c ( - 5.6) % Lactic Acid 1.1 (0.4-2.0) mmol/L Calcium (8.5-10.1) mg/dL Phosphorus (2.6-4.7) mg/dL Magnesium (1.8-2.4) mg/dL Total Bilirubin (0.2-1.0) mg/dL AST (15-37) U/L ALT (16-63) U/L Alkaline Phosphatase (46-116) U/L Troponin I (0.00-0.056) ng/mL C-Reactive Protein (<1.0) mg/dL NT-Pro-B Natriuret Pep (0-125) pg/mL Total Protein (6.4-8.2) g/dl Albumin (3.4-5.0) g/dl Globulin gm/dL Albumin/Globulin Ratio (1-2) TSH 3rd Generation (0.358-3.74) uIU/mL Ethyl Alcohol (0.00) gm% SARS-CoV-2 RNA (ALFONZO) Negative (NEGATIVE) Meds: Medications Generic Name Dose Route Start Last Admin Trade Name Freq PRN Reason Stop Dose Admin Acetaminophen 650 mg 03/01/21 13:52 Acetaminophen 325 Mg Tab PO Q4H PRN Pain (Mild 1-3)/fever Albuterol/Ipratropium 3 ml 03/01/21 13:52 Albuterol/Ipratropium 3.0-0.5 Mg/3 Ml Neb Soln NEB Q4H PRN Shortness Of Breath/wheezing Docusate Sodium 100 mg 03/01/21 13:52 Docusate Sodium 100 Mg Cap PO BID PRN Constipation Furosemide 40 mg 03/01/21 21:00 Furosemide 40 Mg/4 Ml Vial IVPUSH BID [facility] Sodium Chloride 1,000 mls @ 75 mls/hr 03/01/21 15:30 Normal Saline IV 03/02/21 04:49 ASDIRECTED [facility] Insulin Human Lispro 0 unit 03/01/21 17:00 Insulin Lispro 100 Unit/Ml 10 Ml Vial SUBCUT QIDACANDBED [facility] Protocol Magnesium Hydroxide 30 ml 03/01/21 13:52 Magnesium Hydroxide 400 Mg/5 Ml Susp 30 Ml Cup PO Q12H PRN Constipation Miscellaneous Information 1 ea 03/02/21 16:00 Remove Nicotine Patch TRDERM Q24H [facility] Nicotine 14 mg 03/01/21 16:00 Nicotine 14 Mg/24 Hr Patch TRDERM Q24H [facility] Ondansetron HCl 4 mg 03/01/21 13:52 Ondansetron 4 Mg/2 Ml Sdv IV Q6H PRN Nausea/Vomiting Rivaroxaban 15 mg 03/01/21 21:00 Rivaroxaban 15 Mg Tab PO 03/22/21 21:01 BID [facility] Sodium Chloride 10 ml 03/01/21 10:47 03/01/21 12:09 Sodium Chloride 0.9% 10 Ml Syringe FLUSH 10 ml ONETIME PRN Administration IV FLUSH Discontinued Medications Generic Name Dose Route Start Last Admin Trade Name Freq PRN Reason Stop Dose Admin Acetaminophen 975 mg 03/01/21 10:48 03/01/21 11:10 Acetaminophen 325 Mg Tab PO 03/01/21 10:49 975 mg ONETIME ONE Administration Albuterol/Ipratropium 3 ml 03/01/21 09:16 03/01/21 09:31 Albuterol/Ipratropium 3.0-0.5 Mg/3 Ml Neb Soln NEB 3 ml Q4H PRN Administration Shortness Of Breath/wheezing Diphenhydramine HCl 50 mg 05/19/21 11:09 03/01/21 11:25 Diphenhydramine 50 Mg/Ml Sdv IVPUSH 03/01/21 11:10 50 mg ONETIME ONE Administration Furosemide 40 mg 03/01/21 10:03 03/01/21 10:25 Furosemide 40 Mg/4 Ml Vial IVPUSH 03/01/21 10:04 40 mg NOW ONE Administration Sodium Chloride 1,000 mls @ 75 mls/hr 03/01/21 09:30 03/01/21 10:00 Normal Saline IV 75 mls/hr ASDIRECTED LEIGHA Administration Magnesium Sulfate 2 gm/ Premix 50 mls @ 12.5 mls/hr 03/01/21 10:04 03/01/21 10:25 IV 03/01/21 14:03 12.5 mls/hr ONETIME ONE Administration Sodium Chloride 100 mls @ 75 mls/hr 03/01/21 11:00 Normal Saline IV ASDIRECTED LEIGHA Iopamidol 100 ml 03/01/21 10:47 03/01/21 12:09 Iopamidol 755 Mg/Ml 100 Ml Bottle IVPUSH 03/01/21 10:48 100 ml ONETIME ONE Administration Lorazepam 0.5 mg 03/01/21 12:37 03/01/21 12:50 Lorazepam 2 Mg/Ml Sdv IVPUSH 03/01/21 12:38 0.5 mg ONETIME ONE Administration Lorazepam 1 mg 03/01/21 13:41 03/01/21 15:47 Lorazepam 2 Mg/Ml Sdv IVPUSH 03/01/21 13:42 Not Given ONETIME ONE Methylprednisolone Sodium Succinate 125 mg 03/01/21 11:08 03/01/21 11:25 Methylprednisolone Sodium Succinate 125 Mg/2 Ml Sdv IVPUSH 03/01/21 11:09 125 mg ONETIME ONE Administration Rivaroxaban 15 mg 03/01/21 12:41 03/01/21 13:20 Rivaroxaban 15 Mg Tab PO 03/01/21 12:42 15 mg ONETIME ONE Administration - Radiology Interpretation Free Text/Narrative:: 65-year-old male presents to the ED due to increasing dyspnea over the last 3 days. 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 He does have an albuterol inhaler which he uses as needed but not getting any relief with it. O2 sats here were 87 to 88% on room air. He denies any exposure to COVID-19 illness and has not had COVID-19 illness or the vaccination. He is coughing up some whitish sputum. Denies fever or chills. Denies any recent chest pain. He apparently he attends the [place] [facility] and they have been prodding him to go and have a cardiac angiogram which he has not done. Examination reveals him to be dyspneic and tachypneic and mildly tachycardic. Afebrile. Lungs are actually clear to osseous percussion without any adventitial sounds. Particular no wheezing. He is feeling better and oxygen at 2 L/min by nasal cannula which achieves O2 sats of 93 to 94%. Plan ABGs to be done. Chest x-ray ECG labs to include coronavirus screen troponin and BNP magnesium levels. - Re-Assessments/Exams Free Text/Narrative Re-Assessment/Exam: 03/01/21 09:39 chest x-ray done portably reveals moderate cardiomegaly. There is flattening of the right hemidiaphragm and suspect mild pleural effusion with blunted costophrenic angle. There is a diffuse vascular congestion pattern. There is also infiltrates I believe in the right lower lobe right middle lobe and left lower lobe compatible with likely viral pneumonia secondary to COVID-19 illness. 03/01/21 09:55 ABGs revealed a pH of 7.39. PCO2 is 35.7 PO2 was 61. Pulse oximetry was 86.8% on 2 L/min by nasal prongs. Oxygen will be increased to 3 L/min by nasal cannula. Free Text/Narrative Re-Assessment/Exam: 03/01/21 10:02 White count is mildly elevated at 10.29. The differential shows 73.6% neutrophils. Hemoglobin is 13.9 with hematocrit of 42.6 MCV is slightly elevated 96.8. Platelet count normal at 210,000. Chemistry shows a sodium of 142 and a potassium of 4.4. Chloride is 109 with a bicarb of 21. Anion gap is 16.4. BUN is 16 with a creatinine of 1.3 GFR is 56. Glucose is elevated at 148. Calcium 7.8 low magnesium low at 1.6. Bilirubin 0.7 AST is 47 with an ALT of 56 and alk phosphatase of 94. Troponin I is elevated at 0..066 with normal our lab being up to 0.56. C-reactive protein is 4.4. BNP is 5959. Total protein 6.8 with an albumin fraction of 3.0 globulin is 3.8. Elevated troponin appears to be secondary to congestive heart failure. Patient will be given Lasix 40 mg IV at this time. He will also be given magnesium intravenously 2 g at this time 03/01/21 10:44 Patient's D-dimer returned markedly elevated at 11.93. His renal function is good enough to have CT pulmonary angiogram performed to rule out PE. COVID-19 screen is negative. 03/01/21 10:49 patient's O2 sats have improved up to 99 to 100%. He has been up to void a couple of times since receiving Lasix IV. Discussed with him the fact that he requires a CT pulmonary angiogram and he agrees. Is complaining of some headache and is requesting some Tylenol for this. Given Tylenol 9 7 5 mg p.o. He was something to eat as well and we will get him a cardiac diet. 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 We can understand if this was related to CT dye or not. With an elevated D-dimer of 11.3 I am going to pursue CT pulmonary angiogram. He will be given Solu-Medrol 125 mg IV which will aggravate his heart failure. He also received Benadryl [address] will be done 1/2-hour after medications have been given. 03/01/21 12:[address] angiogram without any issues of allergy. Filling defects are seen within the right upper lobe pulmonary arteries as well as more prominent pulmonary emboli within the right lower lung pulmonary arteries. I do not see a discrete pulmonary embolism within the left pulmonary arteries. Associated small to medium right-sided pleural effusion is noted. Scattered lymph nodes are seen within the mediastinum which are stable from previous CT exam. No axillary adenopathy is seen. Slight density is seen within the right lung base most likely representing atelectasis. Lungs otherwise are clear without any acute parenchymal changes. Heart is enlarged with no pericardial thickening. There is mild coronary calcifications being seen. No acute abnormality is appreciated within the visualized upper abdomen. Patient will be on Xarelto 15 mg twice daily for 21 days and then 20 mg once daily. 03/01/21 12:38 patient is feeling quite antsy possibly from Benadryl effect. He is not itching anywhere. I will give him Ativan 0.5 mg IV. When I walked in the room he was standing naked is a Ron. Bird by the bedside off of his oxygen with O2 sats down at 86% huffing and puffing. I will discuss case with on-call hospitalist Dr. Solano with a view to admission to the hospital. 03/01/21 12:46 [address] Solano and he will see the patient in the emergency room with a view to admission probably to the intensive care unit. 03/01/21 13:42 Patient is still feeling restless and mildly agitated. I cannot be sure this is due to the Solu-Medrol or from the Benadryl. I am going to give him Ativan 1 mg IV in the hopes that it does not lower his respiratory rate and then worsen his hypoxia. Currently he is on oxygen at 4 L/min by nasal cannula. Departure - Departure Time of Disposition: 15:00 Disposition: Admitted As Inpatient 67 Condition: Serious Clinical Impression: Pulmonary embolism on right, Hypoxia, Congestive heart failure, Elevated troponin I level, Elevated C-reactive protein (CRP) Dyspnea Qualifiers: Dyspnea type: dyspnea on exertion Qualified Code(s): R06.00 - Dyspnea, unspecified - Discharge Information *PRESCRIPTION DRUG MONITORING PROGRAM REVIEWED*: Not Applicable *COPY OF PRESCRIPTION DRUG MONITORING REPORT IN PATIENT SISSY: Not Applicable Sepsis Event Note (ED) - Evaluation Sepsis Screening Result: No Definite Risk - Focused Exam Vital Signs: Vital Signs Temp Pulse Resp BP Pulse Ox Pulse Ox 03/01/21 09:16 93 L 03/01/21 08:54 36.7 C 97 16 108/86 92 L - My Orders Last 24 Hours: My Active Orders 03/01/21 10:47 Sodium Chloride 0.9% [Saline Flush] 10 ml FLUSH ONETIME PRN - Assessment/Plan Last 24 Hours: My Active Orders 03/01/21 10:47 Sodium Chloride 0.9% [Saline Flush] 10 ml FLUSH ONETIME PRN
[2021-03-01] MEDS ORDERED: Albuterol/Ipratropium 3.0-0.5 MG/3 ML Neb Soln NEB PRN ×2 (09:16→13:52)
[2021-03-01] MEDS ORDERED: Sodium Chloride 0.9% 1,000 ML IV SCH ×2 (09:30→15:30)
[2021-03-01] MEDS ORDERED: Furosemide 40 MG/4 ML VIAL IVPUSH ONE (10:03)
[2021-03-01] MEDS ORDERED: Magnesium Sulfate/Water 2 GM in Premix Bag 1 BAG IV ONE (10:04)
--- NOTE | 2021-03-01 10:09 | CR ---
Chest: Portable view of the chest was obtained. Comparison: Prior chest x-ray of 09/22/20. Heart is enlarged. Upper mediastinum are within normal limits. Slight parenchymal density is seen within the left mid and lower lung. Pulmonary vessels are also minimally congested. Equivocal small right-sided pleural effusion is noted. Impression: 1. Findings suspicious for mild CHF. 2. Slight parenchymal density within the right mid and lower lung which may represent small area of pneumonia or atelectasis if patient has no infectious symptoms. Diagnostic code #3
[2021-03-01] MEDS ORDERED: Sodium Chloride 0.9% 10 ML Syringe FLUSH PRN (10:47)
[2021-03-01] MEDS ORDERED: Iopamidol 755 Mg/ML 100 ML Bottle IVPUSH ONE (10:47)
[2021-03-01] MEDS ORDERED: Acetaminophen 325 MG Tab PO ONE (10:48)
[2021-03-01] MEDS ORDERED: Sodium Chloride 0.9% 100 ML IV SCH (11:00)
[2021-03-01] MEDS ORDERED: methylPREDNISolone Sodium Succinate 125 MG/2 ML SDV IVPUSH ONE (11:08)
[2021-03-01] MEDS ORDERED: diphenhydrAMINE 50 MG/ML SDV IVPUSH ONE (11:09)
--- NOTE | 2021-03-01 12:28 | CT ---
CT chest Technique: Multiple axial sections through the chest were obtained. Intravenous contrast was utilized. Study has been performed as a pulmonary angiogram protocol. Comparison: Prior chest CT study of 09/22/20. Findings: Filling defects are seen within the right upper lobe pulmonary arteries as well as more prominent pulmonary embolism within the right lower lung pulmonary arteries. I do not see a discrete pulmonary embolism within the left pulmonary arteries. Small right-sided pleural effusion is noted. Scattered lymph nodes are seen within the mediastinum which are stable from previous CT exam. No axillary adenopathy is seen. Slight density is seen within the right lung base most likely representing chronic atelectasis. Lungs otherwise are clear without acute parenchymal change. Heart is enlarged with no pericardial thickening. There is mild coronary artery calcifications being seen. No acute abnormality is appreciated within the visualized upper abdomen. Impression: 1. Pulmonary embolism located within the right upper lobe pulmonary arteries and more prominently within the right lower lung pulmonary arteries. 2. Prominent lymph nodes within the mediastinum which are stable from prior chest CT. 3. Right-sided pleural effusion with areas of right basilar atelectasis. Diagnostic code #5
[2021-03-01] MEDS ORDERED: LORazepam 2 MG/ML SDV IVPUSH ONE ×2 (12:37→13:41)
[2021-03-01] MEDS ORDERED: Rivaroxaban 15 MG Tab PO ONE (12:41)
--- NOTE | 2021-03-01 12:52 | PCM.HP.2 ---
H&P History of Present Illness - General Date of Service: 03/01/21 Admit Problem/Dx: Admission Diagnosis/Problem Admission Diagnosis/Problem Dyspnea Source of Information: Patient, Old Records, Provider, RN, RN Notes Reviewed, Significant Other History Limitations: Reports: Altered Mental Status - History of Present Illness Initial Comments - Free Text/Narative: This is a 65-year-old male who presents to ED on 03/01/2021 with respiratory distress. Patient reports that he has been 3 painting multiple vehicles in the shop at his house over last few days and he believes the fumes may have made him ill. He also reports chronic respiratory distress with elevated humidity. He states he used to smoke significant amounts of cigarettes but he is now down to half a pack a day. States he has had a cough with white sputum. Denies any history of COVID-19. Denies any fever, chills, or hemoptysis. In the ED during triage she is noted to have saturations of 88%. He is placed on 2 L via nasal cannula which improved his saturations to the low 90s. Reports orthopnea but h as no documented history of congestive heart failure. [facility] to obtain an [facility] however he has not done one. He does have a history of PE from September 2020 in which he was transferred to the [facility] in [place]. Per his significant other he is supposed to be on Xarelto and he does have the prescriptions with him however she states he has not been taking them regularly. She reports he is not the most medically compliant. In the ED twelve-lead EKG is obtained showing a sinus rhythm at 96 bpm with left axis deviation. P waves are noted to be inverted in leads V1 to V2. Consider mild atrial enlargement. There is a LVH pattern noted with tall R wave in V1. There is also T wave inversion noted in leads I, aVL and V6 which could represent lateral apical wall ischemia. Temp is 36.7 Celsius. Pulse 97. Respirations 16. Blood pressure 108/86. Labs are obtained showing a mild leukocytosis at 10.29. Hemoglobin 13.9. Platelets 210,000. Neutrophils are elevated at 73.6%. Sodium is 142. Potassium 4.4. Chloride 109. Carbon oxide 21. Anion gap 16.4. BUN is 16. Creatinine 1.3. GFR is 56. Glucose is elevated 148. Calcium is 7.8. Magnesium 1.6. Bilirubin 0.7. AST is 47, ALT 56, alkaline phosphatase 94. Troponin is elevated 0.066. CRP is elevated at 4.4. proBNP is elevated at 5959. Albumin is low at 3.0. INR is 1.13. APTT is 23.4. D-dimer is elevated 11.93. Lactic acid is 1.1. SARS Covid 2 RNA is negative. TSH is 0.741. ABG is obtained in the left radial showing a pH of 7.39. PCO2 of 35.7. PO2 of 61.0. HCO3 is 21.1. O2 saturations 86.8. Base excess is -2.7. This is on 2 L via nasal cannula. CT angiogram of the chest is obtained showing pulmonary embolism within the right upper lobe pulmonary braulio kaya and more prominently within the right lower lung pulmonary arteries. There are prominent lymph nodes within the mediastinum which are stable from prior CT. There is also a right-sided pleural effusion with areas of right basilar atelectasis. Chest x-ray is obtained showing findings suspicious for CHF and a slight parenchymal density within the right mid and lower lung which may represent small area of pneumonia or atelectasis if this patient has no infectious symptoms. He is given a DuoNeb and 2 g of magnesium. He started on NS at 75 mils an hour. He is also given Tylenol and 15 mg Xarelto. There was some issues as the patient reports he has allergic to IV contrast. He was there fore given 50 mg IV push of Benadryl and 125 mg Solu-Medrol prior to the CT scan. After this patient was feeling antsy so he was given 0.5 mg IV push Ativan followed by 1 mg IV push Ativan. He was noted to strip down naked in the room and be quite confused. He reports a history of fluid retention and is reportedly on an qjlw-its-nleczbj water pill. He also has chronic back pain and herniated disks. He has a chronic left ankle wound. Suffers from anxiety, depression, and is reportedly prediabetic. He is a daily half pack a day smoker. His PCP is Dr. Burnett with the [facility]. He is subsequently mid to the ICU for management of his PE, CHF, hypoxia, altered mental status, and further work-up of his leukocytosis and left ankle wound. - Related Data Allergies/Adverse Reactions: Allergies Allergy/AdvReac Type Severity Reaction Status Date / Time Iodinated Contrast Media Allergy Airway Verified 03/01/21 15:30 Tightness Home Medications: Home Meds Albuterol Sulfate [Proventil Hfa] 1 puff INH ASDIRECTED 09/22/20 [History] Cholecalciferol (Vitamin D3) [Vitamin D3] 1 tab PO DAILY 09/22/20 [History] Loratadine [Claritin] 10 mg PO DAILY 09/22/20 [History] Magnesium Salicylate/Caffeine [Diurex Water Pills] 1 tab PO DAILY 09/22/20 [History] [place] Xl 1 tab PO DAILY 09/22/20 [History] Vitamin E 400 unit PO DAILY 09/22/20 [History] Past Medical History - Past Health History Medical/Surgical History: Denies Medical/Surgical History Cardiovascular History: Reports: Other (See Below) Other Cardiovascular History: retains fluid-on OTC med called water pills Musculoskeletal History: Reports: Back Pain, Chronic, Other (See Below) Other Musculoskeletal History: herniated discs causing disability, h/o ankle wound on left ankle, B rotator cuff repair Psychiatric History: Reports: Anxiety, Depression Endocrine/Metabolic History: Reports: Diabetes, Type II Other Endocrine/Metabolic History: borderline-on no meds - Past Surgical History HEENT Surgical History: Reports: Tonsillectomy Social & Family History - Tobacco Use Tobacco Use Status *Q: Current Every Day Tobacco User Years of Tobacco use: 40 Packs/Tins Daily: 0.1 - Caffeine Use Caffeine Use: Reports: None - Living Situation & Occupation Living situation: Reports: Occupation: Disabled H&P Review of Systems - Review of Systems: Review Of Systems: Unable To Obtain Reason Not Obtained: Patient AMS Free Text/Narrative: Unable to obtain ROS due to patient's altered mental status. Discussed patient with ED provider and patient's significant other who was at bedside. Exam - Exam Exam: See Below - Vital Signs Vital Signs: Last Vital Signs Temp 98.1 F 03/01/21 08:54 Pulse 97 03/01/21 08:54 Resp 16 03/01/21 08:54 BP 108/86 03/01/21 08:54 Pulse Ox 93 L 03/01/21 09:16 Weight: 260 lb - Exam Quality Assessment: Supplemental Oxygen (4L), DVT Prophylaxis. No: Urinary Catheter General: Mild Distress (Tachypneic), Sedated HEENT: Conjunctiva Clear, EACs Clear, Mucosa Moist & [place] Neck: Supple, Trachea Midline Lungs: Clear to Auscultation, Decreased Breath Sounds. No: Normal Respiratory Effort (Tachypneic) Cardiovascular: Regular Rate, Regular Rhythm. No: Systolic Murmur, Diastolic Murmur GI/Abdominal Exam: Normal Bowel Sounds, Soft, Non-Tender, No Distention (Male) Exam: Deferred Rectal (Males) Exam: Deferred Back Exam: Normal Inspection, Decreased Range of Motion Extremities: Normal Inspection, Normal Range of Motion, Non-Tender, Normal Capillary Refill, Pedal Edema (2-3+), Other (Left lower extremity discoloration consistent with peripheral vascular disease.) Peripheral Pulses: 1+: Dorsalis Pedis (L), Dorsalis Pedis (R), 2+: Radial (L), Radial (R) Skin: Warm, Dry, Intact, Wound (Superficial ulceration on the medial aspect of left lower leg that is bandaged. Patient's significant other reports that this has been ongoing for quite some time and that it has been draining recently.) - Patient Data Lab Results Last 24 hrs: Laboratory Results - last 24 hr 03/01/21 03/01/21 03/01/21 Range/Units 08:55 08:55 08:55 WBC 10.29 H (4.23-9.07) K/mm3 RBC 4.40 L (4.63-6.08) M/mm3 Hgb 13.9 (13.7-17.5) gm/dl Hct 42.6 (40.1-51.0) % MCV 96.8 H (79.0-92.2) fl MCH 31.6 (25.7-32.2) pg MCHC 32.6 (32.2-35.5) g/dl RDW Std Deviation 52.6 H (35.1-43.9) fL Plt Count 210 (163-337) K/mm3 MPV 10.5 (9.4-12.3) fl Neut % (Auto) 73.6 H (34.0-67.9) % Lymph % (Auto) 11.6 L (21.8-53.1) % [place] % (Auto) 11.7 (5.3-12.2) % Eos % (Auto) 2.1 (0.8-7.0) Baso % (Auto) 0.6 (0.1-1.2) % Neut # (Auto) 7.58 H (1.78-5.38) K/mm3 Lymph # (Auto) 1.19 L (1.32-3.57) K/mm3 [place] # (Auto) 1.20 H (0.30-0.82) K/mm3 Eos # (Auto) 0.22 (0.04-0.54) K/mm3 Baso # (Auto) 0.06 (0.01-0.08) K/mm3 PT (9.7-12.0) SECONDS INR APTT (21.7-31.4) SECONDS D-Dimer, Quantitative (0.19-0.50) mg/L Sodium 142 (136-145) mEq/L Potassium 4.4 (3.5-5.1) mEq/L Chloride 109 H (98-107) mEq/L Carbon Dioxide 21 (21-32) mEq/L Anion Gap 16.4 H (5-15) BUN 16 (7-18) mg/dL Creatinine 1.3 (0.7-1.3) mg/dL Est Cr Clr Drug Dosing 66.74 mL/min Estimated GFR (MDRD) 56 (>60) mL/min BUN/Creatinine Ratio 12.3 L (14-18) Glucose 148 H (70-99) mg/dL Lactic Acid (0.4-2.0) mmol/L Calcium 7.8 L (8.5-10.1) mg/dL Magnesium 1.6 L (1.8-2.4) mg/dL Total Bilirubin 0.7 (0.2-1.0) mg/dL AST 47 H (15-37) U/L ALT 56 (16-63) U/L Alkaline Phosphatase 94 (46-116) U/L Troponin I 0.066 H* (0.00-0.056) ng/mL C-Reactive Protein 4.4 H* (<1.0) mg/dL NT-Pro-B Natriuret Pep 5959 H (0-125) pg/mL Total Protein 6.8 (6.4-8.2) g/dl Albumin 3.0 L (3.4-5.0) g/dl Globulin 3.8 gm/dL Albumin/Globulin Ratio 0.8 L (1-2) TSH 3rd Generation (0.358-3.74) uIU/mL SARS-CoV-2 RNA (ALFONZO) (NEGATIVE) 03/01/21 03/01/21 03/01/21 Range/Units 08:55 09:38 09:38 WBC (4.23-9.07) K/mm3 RBC (4.63-6.08) M/mm3 Hgb (13.7-17.5) gm/dl Hct (40.1-51.0) % MCV (79.0-92.2) fl MCH (25.7-32.2) pg MCHC (32.2-35.5) g/dl RDW Std Deviation (35.1-43.9) fL Plt Count (163-337) K/mm3 MPV (9.4-12.3) fl Neut % (Auto) (34.0-67.9) % Lymph % (Auto) (21.8-53.1) % [place] % (Auto) (5.3-12.2) % Eos % (Auto) (0.8-7.0) Baso % (Auto) (0.1-1.2) % Neut # (Auto) (1.78-5.38) K/mm3 Lymph # (Auto) (1.32-3.57) K/mm3 [place] # (Auto) (0.30-0.82) K/mm3 Eos # (Auto) (0.04-0.54) K/mm3 Baso # (Auto) (0.01-0.08) K/mm3 PT 12.1 H (9.7-12.0) SECONDS INR 1.13 APTT 23.4 (21.7-31.4) SECONDS D-Dimer, Quantitative 11.93 H (0.19-0.50) mg/L Sodium (136-145) mEq/L Potassium (3.5-5.1) mEq/L Chloride (98-107) mEq/L Carbon Dioxide (21-32) mEq/L Anion Gap (5-15) BUN (7-18) mg/dL Creatinine (0.7-1.3) mg/dL Est Cr Clr Drug Dosing mL/min Estimated GFR (MDRD) (>60) mL/min BUN/Creatinine Ratio (14-18) Glucose (70-99) mg/dL Lactic Acid 1.1 (0.4-2.0) mmol/L Calcium (8.5-10.1) mg/dL Magnesium (1.8-2.4) mg/dL Total Bilirubin (0.2-1.0) mg/dL AST (15-37) U/L ALT (16-63) U/L Alkaline Phosphatase (46-116) U/L Troponin I (0.00-0.056) ng/mL C-Reactive Protein (<1.0) mg/dL NT-Pro-B Natriuret Pep (0-125) pg/mL Total Protein (6.4-8.2) g/dl Albumin (3.4-5.0) g/dl Globulin gm/dL Albumin/Globulin Ratio (1-2) TSH 3rd Generation 0.741 (0.358-3.74) uIU/mL SARS-CoV-2 RNA (ALFONZO) (NEGATIVE) 03/01/21 Range/Units 09:50 WBC (4.23-9.07) K/mm3 RBC (4.63-6.08) M/mm3 Hgb (13.7-17.5) gm/dl Hct (40.1-51.0) % MCV (79.0-92.2) fl MCH (25.7-32.2) pg MCHC (32.2-35.5) g/dl RDW Std Deviation (35.1-43.9) fL Plt Count (163-337) K/mm3 MPV (9.4-12.3) fl Neut % (Auto) (34.0-67.9) % Lymph % (Auto) (21.8-53.1) % [place] % (Auto) (5.3-12.2) % Eos % (Auto) (0.8-7.0) Baso % (Auto) (0.1-1.2) % Neut # (Auto) (1.78-5.38) K/mm3 Lymph # (Auto) (1.32-3.57) K/mm3 [place] # (Auto) (0.30-0.82) K/mm3 Eos # (Auto) (0.04-0.54) K/mm3 Baso # (Auto) (0.01-0.08) K/mm3 PT (9.7-12.0) SECONDS INR APTT (21.7-31.4) SECONDS D-Dimer, Quantitative (0.19-0.50) mg/L Sodium (136-145) mEq/L Potassium (3.5-5.1) mEq/L Chloride (98-107) mEq/L Carbon Dioxide (21-32) mEq/L Anion Gap (5-15) BUN (7-18) mg/dL Creatinine (0.7-1.3) mg/dL Est Cr Clr Drug Dosing mL/min Estimated GFR (MDRD) (>60) mL/min BUN/Creatinine Ratio (14-18) Glucose (70-99) mg/dL Lactic Acid (0.4-2.0) mmol/L Calcium (8.5-10.1) mg/dL Magnesium (1.8-2.4) mg/dL Total Bilirubin (0.2-1.0) mg/dL AST (15-37) U/L ALT (16-63) U/L Alkaline Phosphatase (46-116) U/L Troponin I (0.00-0.056) ng/mL C-Reactive Protein (<1.0) mg/dL NT-Pro-B Natriuret Pep (0-125) pg/mL Total Protein (6.4-8.2) g/dl Albumin (3.4-5.0) g/dl Globulin gm/dL Albumin/Globulin Ratio (1-2) TSH 3rd Generation (0.358-3.74) uIU/mL SARS-CoV-2 RNA (ALFONZO) Negative (NEGATIVE) Result Diagrams: 03/01/21 08:55 03/01/21 08:55 Sepsis Event Note - Evaluation Sepsis Screening Result: No Definite Risk - Focused Exam Vital Signs: Vital Signs Temp Pulse Resp BP Pulse Ox Pulse Ox 03/01/21 09:16 93 L 03/01/21 08:54 98.1 F 97 16 108/86 92 L - Problem List (1) Pulmonary embolism SNOMED Code(s): 21629832 ICD Code: I26.99 - OTHER PULMONARY EMBOLISM WITHOUT ACUTE COR PULMONALE Status: Acute Priority: High Current Visit: Yes Qualifiers: Pulmonary embolism type: unspecified Chronicity: acute Acute cor pulmonale presence: unspecified Qualified Code(s): I26.99 - Other pulmonary embolism without acute cor pulmonale (2) CHF (congestive heart failure) SNOMED Code(s): 47962036 ICD Code: I50.9 - HEART FAILURE, UNSPECIFIED Status: Suspected Priority: High Current Visit: Yes Qualifiers: Heart failure type: unspecified Heart failure chronicity: acute Qualified Code(s): I50.9 - Heart failure, unspecified (3) Mediastinal adenopathy SNOMED Code(s): 97786756 ICD Code: R59.0 - LOCALIZED ENLARGED LYMPH NODES Status: Chronic Priority: Medium Current Visit: No (4) Dyspnea SNOMED Code(s): 361899348 ICD Code: R06.00 - DYSPNEA, UNSPECIFIED Status: Acute Priority: High Current Visit: Yes Qualifiers: Dyspnea type: dyspnea on exertion Qualified Code(s): R06.00 - Dyspnea, unspecified (5) Hypoxia SNOMED Code(s): 383310238 ICD Code: R09.02 - HYPOXEMIA Status: Acute Priority: High Current Visit: Yes (6) Elevated troponin I level SNOMED Code(s): 017074064 ICD Code: R77.8 - OTHER SPECIFIED ABNORMALITIES OF PLASMA PROTEINS Status: Chronic Priority: Medium Current Visit: Yes (7) Elevated d-dimer SNOMED Code(s): 954819577 ICD Code: R79.89 - OTHER SPECIFIED ABNORMAL FINDINGS OF BLOOD CHEMISTRY Status: Acute Priority: High Current Visit: Yes (8) Leukocytosis SNOMED Code(s): 594022161, 828189188 ICD Code: D72.829 - ELEVATED WHITE BLOOD CELL COUNT, UNSPECIFIED Status: Acute Priority: Medium Current Visit: Yes Qualifiers: Leukocytosis type: unspecified Qualified Code(s): D72.829 - Elevated white blood cell count, unspecified (9) High anion gap metabolic acidosis SNOMED Code(s): 06936527 ICD Code: E87.2 - ACIDOSIS Status: Acute Priority: Medium Current Visit: Yes (10) Hypomagnesemia SNOMED Code(s): 252018532 ICD Code: E83.42 - HYPOMAGNESEMIA Status: Acute Priority: High Current Visit: Yes (11) Peripheral vascular disease SNOMED Code(s): 702848407 ICD Code: I73.9 - PERIPHERAL VASCULAR DISEASE, UNSPECIFIED Status: Chronic Priority: High Current Visit: Yes (12) Wound of skin SNOMED Code(s): 734585922 ICD Code: T14.8XXA - OTHER INJURY OF UNSPECIFIED BODY REGION, INITIAL ENCOUNTER Status: Acute Priority: High Current Visit: Yes (13) Medically noncompliant SNOMED Code(s): 348568090 ICD Code: Z91.19 - PATIENT'S NONCOMPLIANCE W OTH MEDICAL TREATMENT AND REGIMEN Status: Chronic Priority: High Current Visit: Yes (14) Hyperglycemia SNOMED Code(s): 06078854 ICD Code: R73.9 - HYPERGLYCEMIA, UNSPECIFIED Status: Acute Priority: High Current Visit: Yes (15) History of prediabetes SNOMED Code(s): 614625580, 565436548 ICD Code: Z87.898 - PERSONAL HISTORY OF OTHER SPECIFIED CONDITIONS Status: Chronic Priority: High Current Visit: Yes (16) Obesity (BMI 30.0-34.9) SNOMED Code(s): 643252380682142 ICD Code: E66.9 - OBESITY, UNSPECIFIED Status: Chronic Priority: Medium Current Visit: Yes (17) Altered mental status SNOMED Code(s): 988780631 ICD Code: R41.82 - ALTERED MENTAL STATUS, UNSPECIFIED Status: Acute Priority: High Current Visit: Yes Qualifiers: Altered mental status type: disorientation Qualified Code(s): R41.0 - Disorientation, unspecified (18) Tobacco use disorder SNOMED Code(s): 378428648 ICD Code: F17.200 - NICOTINE DEPENDENCE, UNSPECIFIED, UNCOMPLICATED Status: Chronic Priority: Medium Current Visit: Yes (19) Elevated C-reactive protein (CRP) SNOMED Code(s): 436924841071020 ICD Code: R79.82 - ELEVATED C-REACTIVE PROTEIN (CRP) Status: Acute Priority: Medium Current Visit: Yes (20) Pleural effusion SNOMED Code(s): 95323301 ICD Code: J90 - PLEURAL EFFUSION, NOT ELSEWHERE CLASSIFIED Status: Acute Priority: High Current Visit: Yes (21) Atelectasis SNOMED Code(s): 54193560 ICD Code: J98.11 - ATELECTASIS Status: Acute Priority: High Current V isit: Yes Problem List Initiated/Reviewed/Updated: Yes Orders Last 24hrs: Active Orders 24 hr Category Date Time Status Patient Status [ADT] Routine ADT 03/01/21 12:47 Active EKG 12 Lead [EKG Documentation Completion] [RC] STAT Care 03/01/21 09:00 Active RT Aerosol Therapy [RC] ASDIRECTED Care 03/01/21 09:16 Active ABG [BLOOD GAS ARTERIAL] [BG] Stat Lab 03/01/21 09:17 Ordered Albuterol/Ipratropium [DuoNeb 3.0-0.5 MG/3 ML] Med 03/01/21 09:16 Active 3 ml NEB Q4H PRN Magnesium Sulfate/Water [Magnesium Sulfate in Water 2 Med 03/01/21 10:04 Active GM/50 ML] 2 gm Premix Bag 1 bag IV ONETIME Sodium Chloride 0.9% [Normal Saline] 1,000 ml Med 03/01/21 09:30 Active IV ASDIRECTED Sodium Chloride 0.9% [Normal Saline] 100 ml Med 03/01/21 11:00 Active IV ASDIRECTED Sodium Chloride 0.9% [Saline Flush] Med 03/01/21 10:47 Active 10 ml FLUSH ONETIME PRN Medication Orders Albuterol/Ipratropium (Albuterol/Ipratropium 3.0-0.5 Mg/3 Ml Neb Soln) 3 ml NEB Q4H PRN PRN Reason: Shortness Of Breath/wheezing Last Admin: 03/01/21 09:31 Dose: 3 ml Documented by: JANETH Sodium Chloride (Normal Saline) 1,000 mls @ 75 mls/hr IV ASDIRECTED [facility] Last Admin: 03/01/21 10:00 Dose: 75 mls/hr Documented by: ALLEN Magnesium Sulfate 2 gm/ Premix 50 mls @ 12.5 mls/hr IV ONETIME ONE Stop: 03/01/21 14:03 Last Admin: 03/01/21 10:25 Dose: 12.5 mls/hr Documented by: ALLEN Sodium Chloride (Normal Saline) 100 mls @ 75 mls/hr IV ASDIRECTED [facility] Sodium Chloride (Sodium Chloride 0.9% 10 Ml Syringe) 10 ml FLUSH ONETIME PRN PRN Reason: IV FLUSH Last Admin: 03/01/21 12:09 Dose: 10 ml Documented by: BRYANT Assessment/Plan Comment:: Assessment - day of admission 03/01/2021 * 65-year-old male presents to ED with respiratory distress * Patient reports he has been very painting multiple vehicles in his shop at home. He also reports chronic difficulty with high humidity * Reports former heavy smoker who is down to half a pack a day. * Reports worsening cough with white sputum and orthopnea but no fever, chills, hemoptysis. * Denies any recent COVID-19 infection. * Significant other reports patient has been noncompliant with medications. Reports DC has wanted him to obtain angiogram but he is refusing. * Carries history of fluid retention on "pxri-ahg-dwekoey water pills", chronic back pain, herniated disc causing disability, chronic left ankle wound, anxiety, depression, prediabetes. * Oxygen saturations on ED arrival noted to be 88% -up to 93 to 94% on 2 L via nasal cannula. * Was reportedly hospitalized at the [facility] in [place] for a PE last September. * Twelve-lead EKG obtained in ED shows sinus rhythm at 96 bpm with left axis deviation and inverted P waves in V1 and V2. Consider left atrial enlargement. LVH pattern with tall R wave in V1. T wave inversion in leads I, aVL and V6. Cannot rule out lateral apical wall ischemia. * Chest x-ray obtained shows enlarged heart with findings suspicious for mild CHF. There is also slight parenchymal density within the right mid and lower lung which may represent small area of pneumonia or atelectasis if patient has no infectious symptoms. * CTA obtained in ED: * 1. Pulmonary embolism located within the right upper lobe pulmonary arteries and more prominently within the right lower lung pulmonary arteries. * 2. Prominent lymph nodes within the mediastinum which are stable from prior chest CT. * 3. Right-sided pleural effusion with areas of right basilar atelectasis. * Labs in ED: * WBC 10.29 * Hemoglobin 13.9 * Platelet 210,000 * Neutrophils elevated at 73.6% * Sodium 142 * Potassium 4.4 * Carbon dioxide 21 * Anion gap 16.4 * BUN 16, creatinine 1.3, GFR 56 * Glucose 148 * Calcium 7.8 * Magnesium 1.6 * Total bilirubin 0.7 * AST 47, ALT 56, alkaline phosphatase 94 * Troponin 0.066 * CRP 4.4 * proBNP 5959 * Albumin 3.0 * INR 1.13 * APTT 23.4 * D-dimer 11.93 * Lactic acid 1.1 * TSH 0.741 * SARS Covid 2 RNA negative * ABG is obtained in the left radial showing a pH of 7.39. PCO2 of 35.7. PO2 of 61.0. HCO3 is 21.1. O2 saturations 86.8. Base excess is -2.7. This is on 2 L via nasal cannula. * Is given an albuterol neb, 2 g magnesium, 975 mg acetaminophen, 40 mg IV push Lasix, 50 mg Xarelto, and started on 75 mils an hour of NS. * Because he is reportedly allergic to IV contrast he is also given 50 mg of IV Benadryl and 125 mg of methylprednisolone. He then becomes quite jittery and is given 0.5 of Ativan followed by 1 mg of Ativan. Has had AMS since * He subsequently admitted to the ICU for management of his PE, CHF, altered mental status, and further work-up for his leukocytosis and leg wound. PLAN Pulmonary embolism Dyspnea Hypoxia Elevated d-dimer Obesity Atelectasis * 15mg BID Xarelto for 21 days * Echocardiogram to R/o right heart strain * Telemetry * O2 as needed to keep saturations >90% * Recommend sleep study after discharge as patients significant other reports snoring and apneic spells * Recommend PFT outpatient * RT consultation * IS * Phy Therapist consultation * Consider follow-up with hematology * Obtain old records from the [facility] * Obtain LE US to rule out DVT. CHF (congestive heart failure) - suspected Elevated troponin I level Pleural effusion * Lasix 40mg IVP BID * Echocardiogram * Strict I&O monitoring * Sodium restriction * Telemetry * Monitor I&Os * Re-check troponin in AM * Obtain old records from the [facility] * Monitor daily labs Hyperglycemia History of prediabetes * Obtain A1C * SS insulin low dose for now * QID AC and Bedtime glucose checks * Diabetic diet * Phy Therapist consultation Leukocytosis Elevated CRP * Unknown cause * Differential includes stress rxn vs PNA vs. Leg wound cause * Obtain blood cultures x2 * Monitor CBC * Workup skin wound as below * Obtain procalcitonin * Will hold off abx for now * Monitor CBCs and CRPs High anion gap metabolic acidosis * IV fluids as directed * Monitor labs * Caution with worsening suspected CHF Hypomagnesemia * Supplemented 2 gm in ED * Recheck in AM Peripheral vascular disease Wound of skin * PT wound care * Nursing to monitor * MRSA screen * Culture wound if draining * Blood cultures as above * Will hold off ABX for now Medically noncompliant * Per significant other patient is not taking medications regularly * Was supposed to undergo angiogram but has been refusing * SW/CM consultation * 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 Corley with the [facility] DVT prophylaxis: Pierce Disposition: Patient admitted to ICU for management of PE, suspected CHF, altered mental status, and further work-up of leg wound and leukocytosis. LOS likely 3-4 days. - Mortality Measure Prognosis:: Good
[2021-03-01] MEDS ORDERED: Magnesium Hydroxide 400 MG/5 ML Susp 30 ML Cup PO PRN (13:52)
[2021-03-01] MEDS ORDERED: Docusate Sodium 100 MG Cap PO PRN (13:52)
[2021-03-01] MEDS ORDERED: Ondansetron 4 MG/2 ML SDV IV PRN (13:52)
[2021-03-01] MEDS ORDERED: Nicotine 14 MG/24 Hr Patch TRDERM SCH (16:00)
--- NOTE | 2021-03-01 17:10 | US ---
Bilateral lower extremity deep venous ultrasound: Duplex and color Doppler evaluation was obtained of the right and left common femoral, proximal greater saphenous, superficial femoral, popliteal, posterior tibial and peroneal veins. Technologist's note: Suboptimal study as patient had restless legs and could not lie still Findings: Right popliteal vein shows lack of compression and augmentation with findings of deep venous thrombosis. Proximal and mid superficial femoral veins show nonoccluding clot. I have a technologist note stating this is chronic although I am not sure of age. Other deeper veins on the left side are not well seen. Impression: 1. Acute clot within the right popliteal vein. 2. Nonoccluding clot within the proximal and mid left superficial femoral vein. Technologist's note states chronic clot although I am not sure as to age of this finding. 3. Other veins within the more distal left lower extremity are not well seen as noted above. Diagnostic code #5 [id number]
[2021-03-01] MEDS: Insulin Lispro 100 UNIT/ML 10 ML Vial SUBCUT SCH ×2 (18:21→21:00)
[2021-03-01] MEDS: Acetaminophen 325 MG Tab PO PRN ×2 (18:23→22:23)
[2021-03-01] MEDS ORDERED: oxyCODONE 5 MG Tab PO PRN (20:01)
[2021-03-01] MEDS ORDERED: traZODone 50 MG Tab PO PRN (20:01)
[2021-03-01] MEDS: Furosemide 40 MG/4 ML VIAL IVPUSH SCH (20:16)
[2021-03-01] MEDS: Rivaroxaban 15 MG Tab PO SCH (20:17)
[2021-03-02] MEDS: Insulin Lispro 100 UNIT/ML 10 ML Vial SUBCUT SCH (06:50)
--- NOTE | 2021-03-02 07:35 | PCM.PN ---
- General Info Date of Service: 03/02/21 Admission Dx/Problem (Free Text): Admission Diagnosis/Problem Admission Diagnosis/Problem Dyspnea - Patient Data Vitals - Most Recent: Last Vital Signs Temp 97.2 F 03/02/21 04:00 Pulse 97 03/01/21 08:54 Resp 24 H 03/02/21 04:00 BP 109/85 03/02/21 04:00 Pulse Ox 97 03/02/21 06:46 Weight - Most Recent: 248 lb 1.6 oz I&O - Last 24 Hours: Intake & Output 03/01/21 03/02/21 03/02/21 22:59 06:59 14:59 Intake Total 240 200 Output Total 400 550 Balance -160 -350 Lab Results Last 24 Hours: Laboratory Results - last 24 hr 03/01/21 03/01/21 03/01/21 Range/Units 08:55 08:55 08:55 WBC 10.29 H (4.23-9.07) K/mm3 RBC 4.40 L (4.63-6.08) M/mm3 Hgb 13.9 (13.7-17.5) gm/dl Hct 42.6 (40.1-51.0) % MCV 96.8 H (79.0-92.2) fl MCH 31.6 (25.7-32.2) pg MCHC 32.6 (32.2-35.5) g/dl RDW Std Deviation 52.6 H (35.1-43.9) fL Plt Count 210 (163-337) K/mm3 MPV 10.5 (9.4-12.3) fl Neut % (Auto) 73.6 H (34.0-67.9) % Lymph % (Auto) 11.6 L (21.8-53.1) % [place] % (Auto) 11.7 (5.3-12.2) % Eos % (Auto) 2.1 (0.8-7.0) Baso % (Auto) 0.6 (0.1-1.2) % Neut # (Auto) 7.58 H (1.78-5.38) K/mm3 Lymph # (Auto) 1.19 L (1.32-3.57) K/mm3 [place] # (Auto) 1.20 H (0.30-0.82) K/mm3 Eos # (Auto) 0.22 (0.04-0.54) K/mm3 Baso # (Auto) 0.06 (0.01-0.08) K/mm3 Manual Slide Review PT (9.7-12.0) SECONDS INR APTT (21.7-31.4) SECONDS D-Dimer, Quantitative (0.19-0.50) mg/L Puncture Site ABG pH (7.35-7.45) ABG pCO2 (35.0-45.0) mmHg ABG pO2 (80.0-100.0) mmHg ABG HCO3 (22.0-26.0) meq/L ABG O2 Saturation (96.0-97.0) % ABG Base Excess (-2-2.0) Vishal Test O2 Delivery Device Oxygen Flow Rate Sodium 142 (136-145) mEq/L Potassium 4.4 (3.5-5.1) mEq/L Chloride 109 H (98-107) mEq/L Carbon Dioxide 21 (21-32) mEq/L Anion Gap 16.4 H (5-15) BUN 16 (7-18) mg/dL Creatinine 1.3 (0.7-1.3) mg/dL Est Cr Clr Drug Dosing 66.74 mL/min Estimated GFR (MDRD) 56 (>60) mL/min BUN/Creatinine Ratio 12.3 L (14-18) Glucose 148 H (70-99) mg/dL POC Glucose (70-99) mg/dL Hemoglobin A1c ( - 5.6) % Lactic Acid (0.4-2.0) mmol/L Calcium 7.8 L (8.5-10.1) mg/dL Phosphorus (2.6-4.7) mg/dL Magnesium 1.6 L (1.8-2.4) mg/dL Total Bilirubin 0.7 (0.2-1.0) mg/dL AST 47 H (15-37) U/L ALT 56 (16-63) U/L Alkaline Phosphatase 94 (46-116) U/L Troponin I 0.066 H* (0.00-0.056) ng/mL C-Reactive Protein 4.4 H* (<1.0) mg/dL NT-Pro-B Natriuret Pep 5959 H (0-125) pg/mL Total Protein 6.8 (6.4-8.2) g/dl Albumin 3.0 L (3.4-5.0) g/dl Globulin 3.8 gm/dL Albumin/Globulin Ratio 0.8 L (1-2) Procalcitonin ng/mL TSH 3rd Generation (0.358-3.74) uIU/mL Urine Opiates Screen (AJUOMM=782) Ur Buprenorphine Scrn (CUTOFF=10) Ur Oxycodone Screen (WEP8DM=912) Urine Methadone Screen (HMH0TB=839) Ur Propoxyphene Screen (USAFTA=945) Ur Barbiturates Screen (BRIYMF=842) Ur Tricyclics Screen (PAGHBG=274) Ur Phencyclidine Scrn (CUTOFF=25) Ur Amphetamine Screen (QTBARA=129) U Methamphetamines Scrn (LSDIJE=090) U Benzodiazepines Scrn (UQTZDY=401) U Cocaine Metab Screen (ZLPRPV=316) U Marijuana (THC) Screen (CUTOFF=50) Ethyl Alcohol (0.00) gm% SARS-CoV-2 RNA (ALFONZO) (NEGATIVE) MRSA (PCR) 03/01/21 03/01/21 03/01/21 Range/Units 08:55 08:55 08:55 WBC (4.23-9.07) K/mm3 RBC (4.63-6.08) M/mm3 Hgb (13.7-17.5) gm/dl Hct (40.1-51.0) % MCV (79.0-92.2) fl MCH (25.7-32.2) pg MCHC (32.2-35.5) g/dl RDW Std Deviation (35.1-43.9) fL Plt Count (163-337) K/mm3 MPV (9.4-12.3) fl Neut % (Auto) (34.0-67.9) % Lymph % (Auto) (21.8-53.1) % [place] % (Auto) (5.3-12.2) % Eos % (Auto) (0.8-7.0) Baso % (Auto) (0.1-1.2) % Neut # (Auto) (1.78-5.38) K/mm3 Lymph # (Auto) (1.32-3.57) K/mm3 [place] # (Auto) (0.30-0.82) K/mm3 Eos # (Auto) (0.04-0.54) K/mm3 Baso # (Auto) (0.01-0.08) K/mm3 Manual Slide Review PT (9.7-12.0) SECONDS INR APTT (21.7-31.4) SECONDS D-Dimer, Quantitative (0.19-0.50) mg/L Puncture Site ABG pH (7.35-7.45) ABG pCO2 (35.0-45.0) mmHg ABG pO2 (80.0-100.0) mmHg ABG HCO3 (22.0-26.0) meq/L ABG O2 Saturation (96.0-97.0) % ABG Base Excess (-2-2.0) Vishal Test O2 Delivery Device Oxygen Flow Rate Sodium (136-145) mEq/L Potassium (3.5-5.1) mEq/L Chloride (98-107) mEq/L Carbon Dioxide (21-32) mEq/L Anion Gap (5-15) BUN (7-18) mg/dL Creatinine (0.7-1.3) mg/dL Est Cr Clr Drug Dosing mL/min Estimated GFR (MDRD) (>60) mL/min BUN/Creatinine Ratio (14-18) Glucose (70-99) mg/dL POC Glucose (70-99) mg/dL Hemoglobin A1c ( - 5.6) % Lactic Acid (0.4-2.0) mmol/L Calcium (8.5-10.1) mg/dL Phosphorus 3.1 (2.6-4.7) mg/dL Magnesium (1.8-2.4) mg/dL Total Bilirubin (0.2-1.0) mg/dL AST (15-37) U/L ALT (16-63) U/L Alkaline Phosphatase (46-116) U/L Troponin I (0.00-0.056) ng/mL C-Reactive Protein (<1.0) mg/dL NT-Pro-B Natriuret Pep (0-125) pg/mL Total Protein (6.4-8.2) g/dl Albumin (3.4-5.0) g/dl Globulin gm/dL Albumin/Globulin Ratio (1-2) Procalcitonin 0.07 ng/mL TSH 3rd Generation 0.741 (0.358-3.74) uIU/mL Urine Opiates Screen (JXYWVE=200) Ur Buprenorphine Scrn (CUTOFF=10) Ur Oxycodone Screen (MDE0MB=041) Urine Methadone Screen (CXU4AY=644) Ur Propoxyphene Screen (KZVPNI=708) Ur Barbiturates Screen (PKMTUF=255) Ur Tricyclics Screen (TLUYBM=163) Ur Phencyclidine Scrn (CUTOFF=25) Ur Amphetamine Screen (MLAGGR=928) U Methamphetamines Scrn (PSVCZB=125) U Benzodiazepines Scrn (HRDMQY=926) U Cocaine Metab Screen (UFYTAG=599) U Marijuana (THC) Screen (CUTOFF=50) Ethyl Alcohol (0.00) gm% SARS-CoV-2 RNA (ALFONZO) (NEGATIVE) MRSA (PCR) 03/01/21 03/01/21 03/01/21 Range/Units 08:55 08:55 09:17 WBC (4.23-9.07) K/mm3 RBC (4.63-6.08) M/mm3 Hgb (13.7-17.5) gm/dl Hct (40.1-51.0) % MCV (79.0-92.2) fl MCH (25.7-32.2) pg MCHC (32.2-35.5) g/dl RDW Std Deviation (35.1-43.9) fL Plt Count (163-337) K/mm3 MPV (9.4-12.3) fl Neut % (Auto) (34.0-67.9) % Lymph % (Auto) (21.8-53.1) % [place] % (Auto) (5.3-12.2) % Eos % (Auto) (0.8-7.0) Baso % (Auto) (0.1-1.2) % Neut # (Auto) (1.78-5.38) K/mm3 Lymph # (Auto) (1.32-3.57) K/mm3 [place] # (Auto) (0.30-0.82) K/mm3 Eos # (Auto) (0.04-0.54) K/mm3 Baso # (Auto) (0.01-0.08) K/mm3 Manual Slide Review PT (9.7-12.0) SECONDS INR APTT (21.7-31.4) SECONDS D-Dimer, Quantitative (0.19-0.50) mg/L Puncture Site Lt radial ABG pH 7.39 (7.35-7.45) ABG pCO2 35.7 (35.0-45.0) mmHg ABG pO2 61.0 L (80.0-100.0) mmHg ABG HCO3 21.1 L (22.0-26.0) meq/L ABG O2 Saturation 86.8 L (96.0-97.0) % ABG Base Excess -2.7 L (-2-2.0) Vishal Test Positive O2 Delivery Device Nasal cannula Oxygen Flow Rate 2.0 Sodium (136-145) mEq/L Potassium (3.5-5.1) mEq/L Chloride (98-107) mEq/L Carbon Dioxide (21-32) mEq/L Anion Gap (5-15) BUN (7-18) mg/dL Creatinine (0.7-1.3) mg/dL Est Cr Clr Drug Dosing mL/min Estimated GFR (MDRD) (>60) mL/min BUN/Creatinine Ratio (14-18) Glucose (70-99) mg/dL POC Glucose (70-99) mg/dL Hemoglobin A1c 8.0 H ( - 5.6) % Lactic Acid (0.4-2.0) mmol/L Calcium (8.5-10.1) mg/dL Phosphorus (2.6-4.7) mg/dL Magnesium (1.8-2.4) mg/dL Total Bilirubin (0.2-1.0) mg/dL AST (15-37) U/L ALT (16-63) U/L Alkaline Phosphatase (46-116) U/L Troponin I (0.00-0.056) ng/mL C-Reactive Protein (<1.0) mg/dL NT-Pro-B Natriuret Pep (0-125) pg/mL Total Protein (6.4-8.2) g/dl Albumin (3.4-5.0) g/dl Globulin gm/dL Albumin/Globulin Ratio (1-2) Procalcitonin ng/mL TSH 3rd Generation (0.358-3.74) uIU/mL Urine Opiates Screen (CPYFCX=457) Ur Buprenorphine Scrn (CUTOFF=10) Ur Oxycodone Screen (AWT7GP=376) Urine Methadone Screen (HOQ9AD=724) Ur Propoxyphene Screen (PVEFTE=161) Ur Barbiturates Screen (ENVKDS=863) Ur Tricyclics Screen (QEGWFY=620) Ur Phencyclidine Scrn (CUTOFF=25) Ur Amphetamine Screen (DADDHP=361) U Methamphetamines Scrn (DYPSJB=657) U Benzodiazepines Scrn (UNFXZN=112) U Cocaine Metab Screen (OKTUDY=174) U Marijuana (THC) Screen (CUTOFF=50) Ethyl Alcohol 0.00 (0.00) gm% SARS-CoV-2 RNA (ALFONZO) (NEGATIVE) MRSA (PCR) 03/01/21 03/01/21 03/01/21 Range/Units 09:38 09:38 09:50 WBC (4.23-9.07) K/mm3 RBC (4.63-6.08) M/mm3 Hgb (13.7-17.5) gm/dl Hct (40.1-51.0) % MCV (79.0-92.2) fl MCH (25.7-32.2) pg MCHC (32.2-35.5) g/dl RDW Std Deviation (35.1-43.9) fL Plt Count (163-337) K/mm3 MPV (9.4-12.3) fl Neut % (Auto) (34.0-67.9) % Lymph % (Auto) (21.8-53.1) % [place] % (Auto) (5.3-12.2) % Eos % (Auto) (0.8-7.0) Baso % (Auto) (0.1-1.2) % Neut # (Auto) (1.78-5.38) K/mm3 Lymph # (Auto) (1.32-3.57) K/mm3 [place] # (Auto) (0.30-0.82) K/mm3 Eos # (Auto) (0.04-0.54) K/mm3 Baso # (Auto) (0.01-0.08) K/mm3 Manual Slide Review PT 12.1 H (9.7-12.0) SECONDS INR 1.13 APTT 23.4 (21.7-31.4) SECONDS D-Dimer, Quantitative 11.93 H (0.19-0.50) mg/L Puncture Site ABG pH (7.35-7.45) ABG pCO2 (35.0-45.0) mmHg ABG pO2 (80.0-100.0) mmHg ABG HCO3 (22.0-26.0) meq/L ABG O2 Saturation (96.0-97.0) % ABG Base Excess (-2-2.0) Vishal Test O2 Delivery Device Oxygen Flow Rate Sodium (136-145) mEq/L Potassium (3.5-5.1) mEq/L Chloride (98-107) mEq/L Carbon Dioxide (21-32) mEq/L Anion Gap (5-15) BUN (7-18) mg/dL Creatinine (0.7-1.3) mg/dL Est Cr Clr Drug Dosing mL/min Estimated GFR (MDRD) (>60) mL/min BUN/Creatinine Ratio (14-18) Glucose (70-99) mg/dL POC Glucose (70-99) mg/dL Hemoglobin A1c ( - 5.6) % Lactic Acid 1.1 (0.4-2.0) mmol/L Calcium (8.5-10.1) mg/dL Phosphorus (2.6-4.7) mg/dL Magnesium (1.8-2.4) mg/dL Total Bilirubin (0.2-1.0) mg/dL AST (15-37) U/L ALT (16-63) U/L Alkaline Phosphatase (46-116) U/L Troponin I (0.00-0.056) ng/mL C-Reactive Protein (<1.0) mg/dL NT-Pro-B Natriuret Pep (0-125) pg/mL Total Protein (6.4-8.2) g/dl Albumin (3.4-5.0) g/dl Globulin gm/dL Albumin/Globulin Ratio (1-2) Procalcitonin ng/mL TSH 3rd Generation (0.358-3.74) uIU/mL Urine Opiates Screen (RJKYIO=339) Ur Buprenorphine Scrn (CUTOFF=10) Ur Oxycodone Screen (USB7GT=079) Urine Methadone Screen (UVN6MX=457) Ur Propoxyphene Screen (QQPCDT=938) Ur Barbiturates Screen (QVRVFR=476) Ur Tricyclics Screen (KDGJQX=036) Ur Phencyclidine Scrn (CUTOFF=25) Ur Amphetamine Screen (FQVDHV=160) U Methamphetamines Scrn (ZFAVVX=200) U Benzodiazepines Scrn (AIYTHG=633) U Cocaine Metab Screen (AJCNPY=676) U Marijuana (THC) Screen (CUTOFF=50) Ethyl Alcohol (0.00) gm% SARS-CoV-2 RNA (ALFONZO) Negative (NEGATIVE) MRSA (PCR) 03/01/21 03/01/21 03/01/21 Range/Units 16:20 17:59 18:04 WBC (4.23-9.07) K/mm3 RBC (4.63-6.08) M/mm3 Hgb (13.7-17.5) gm/dl Hct (40.1-51.0) % MCV (79.0-92.2) fl MCH (25.7-32.2) pg MCHC (32.2-35.5) g/dl RDW Std Deviation (35.1-43.9) fL Plt Count (163-337) K/mm3 MPV (9.4-12.3) fl Neut % (Auto) (34.0-67.9) % Lymph % (Auto) (21.8-53.1) % [place] % (Auto) (5.3-12.2) % Eos % (Auto) (0.8-7.0) Baso % (Auto) (0.1-1.2) % Neut # (Auto) (1.78-5.38) K/mm3 Lymph # (Auto) (1.32-3.57) K/mm3 [place] # (Auto) (0.30-0.82) K/mm3 Eos # (Auto) (0.04-0.54) K/mm3 Baso # (Auto) (0.01-0.08) K/mm3 Manual Slide Review PT (9.7-12.0) SECONDS INR APTT (21.7-31.4) SECONDS D-Dimer, Quantitative (0.19-0.50) mg/L Puncture Site ABG pH (7.35-7.45) ABG pCO2 (35.0-45.0) mmHg ABG pO2 (80.0-100.0) mmHg ABG HCO3 (22.0-26.0) meq/L ABG O2 Saturation (96.0-97.0) % ABG Base Excess (-2-2.0) Vishal Test O2 Delivery Device Oxygen Flow Rate Sodium (136-145) mEq/L Potassium (3.5-5.1) mEq/L Chloride (98-107) mEq/L Carbon Dioxide (21-32) mEq/L Anion Gap (5-15) BUN (7-18) mg/dL Creatinine (0.7-1.3) mg/dL Est Cr Clr Drug Dosing mL/min Estimated GFR (MDRD) (>60) mL/min BUN/Creatinine Ratio (14-18) Glucose (70-99) mg/dL POC Glucose 165 H (70-99) mg/dL Hemoglobin A1c ( - 5.6) % Lactic Acid (0.4-2.0) mmol/L Calcium (8.5-10.1) mg/dL Phosphorus (2.6-4.7) mg/dL Magnesium (1.8-2.4) mg/dL Total Bilirubin (0.2-1.0) mg/dL AST (15-37) U/L ALT (16-63) U/L Alkaline Phosphatase (46-116) U/L Troponin I (0.00-0.056) ng/mL C-Reactive Protein (<1.0) mg/dL NT-Pro-B Natriuret Pep (0-125) pg/mL Total Protein (6.4-8.2) g/dl Albumin (3.4-5.0) g/dl Globulin gm/dL Albumin/Globulin Ratio (1-2) Procalcitonin ng/mL TSH 3rd Generation (0.358-3.74) uIU/mL Urine Opiates Screen Negative (NZFWBM=638) Ur Buprenorphine Scrn Negative (CUTOFF=10) Ur Oxycodone Screen Negative (QOW0NI=868) Urine Methadone Screen Negative (XZX2HC=375) Ur Propoxyphene Screen Negative (DURQMG=446) Ur Barbiturates Screen Negative (YQADHE=560) Ur Tricyclics Screen Negative (CKPMQV=576) Ur Phencyclidine Scrn Negative (CUTOFF=25) Ur Amphetamine Screen Presumptive positive H (SZLHGL=194) U Methamphetamines Scrn Presumptive positive H (YMRJOY=345) U Benzodiazepines Scrn Presumptive positive H (AUGFOY=440) U Cocaine Metab Screen Negative (PNYXTG=985) U Marijuana (THC) Screen Negative (CUTOFF=50) Ethyl Alcohol (0.00) gm% SARS-CoV-2 RNA (ALFONZO) (NEGATIVE) MRSA (PCR) Negative 03/01/21 03/02/21 03/02/21 Range/Units 20:15 04:52 04:52 WBC 13.86 H (4.23-9.07) K/mm3 RBC 4.43 L (4.63-6.08) M/mm3 Hgb 13.8 (13.7-17.5) gm/dl Hct 42.8 (40.1-51.0) % MCV 96.6 H (79.0-92.2) fl MCH 31.2 (25.7-32.2) pg MCHC 32.2 (32.2-35.5) g/dl RDW Std Deviation 51.5 H (35.1-43.9) fL Plt Count 196 (163-337) K/mm3 MPV 10.3 (9.4-12.3) fl Neut % (Auto) 89.1 H (34.0-67.9) % Lymph % (Auto) 5.8 L (21.8-53.1) % [place] % (Auto) 4.7 L (5.3-12.2) % Eos % (Auto) 0 L (0.8-7.0) Baso % (Auto) 0.1 (0.1-1.2) % Neut # (Auto) 12.35 H (1.78-5.38) K/mm3 Lymph # (Auto) 0.81 L (1.32-3.57) K/mm3 [place] # (Auto) 0.65 (0.30-0.82) K/mm3 Eos # (Auto) 0.00 L (0.04-0.54) K/mm3 Baso # (Auto) 0.01 (0.01-0.08) K/mm3 Manual Slide Review Abnormal smear PT (9.7-12.0) SECONDS INR APTT (21.7-31.4) SECONDS D-Dimer, Quantitative (0.19-0.50) mg/L Puncture Site ABG pH (7.35-7.45) ABG pCO2 (35.0-45.0) mmHg ABG pO2 (80.0-100.0) mmHg ABG HCO3 (22.0-26.0) meq/L ABG O2 Saturation (96.0-97.0) % ABG Base Excess (-2-2.0) Vishal Test O2 Delivery Device Oxygen Flow Rate Sodium 139 (136-145) mEq/L Potassium 4.5 (3.5-5.1) mEq/L Chloride 105 (98-107) mEq/L Carbon Dioxide 25 (21-32) mEq/L Anion Gap 13.5 (5-15) BUN 21 H (7-18) mg/dL Creatinine 1.3 (0.7-1.3) mg/dL Est Cr Clr Drug Dosing 66.74 mL/min Estimated GFR (MDRD) 56 (>60) mL/min BUN/Creatinine Ratio 16.2 (14-18) Glucose 163 H (70-99) mg/dL POC Glucose 205 H (70-99) mg/dL Hemoglobin A1c ( - 5.6) % Lactic Acid (0.4-2.0) mmol/L Calcium 8.2 L (8.5-10.1) mg/dL Phosphorus (2.6-4.7) mg/dL Magnesium 2.1 (1.8-2.4) mg/dL Total Bilirubin 0.7 (0.2-1.0) mg/dL AST 36 (15-37) U/L ALT 53 (16-63) U/L Alkaline Phosphatase 84 (46-116) U/L Troponin I 0.043 (0.00-0.056) ng/mL C-Reactive Protein 6.5 H* (<1.0) mg/dL NT-Pro-B Natriuret Pep (0-125) pg/mL Total Protein 6.7 (6.4-8.2) g/dl Albumin 2.9 L (3.4-5.0) g/dl Globulin 3.8 gm/dL Albumin/Globulin Ratio 0.8 L (1-2) Procalcitonin ng/mL TSH 3rd Generation (0.358-3.74) uIU/mL Urine Opiates Screen (BHFPFS=503) Ur Buprenorphine Scrn (CUTOFF=10) Ur Oxycodone Screen (HYA7XE=264) Urine Methadone Screen (CEH7TA=845) Ur Propoxyphene Screen (WSYLMJ=422) Ur Barbiturates Screen (OXDXRK=471) Ur Tricyclics Screen (YXKWZH=717) Ur Phencyclidine Scrn (CUTOFF=25) Ur Amphetamine Screen (DAETML=991) U Methamphetamines Scrn (JEBGVY=758) U Benzodiazepines Scrn (DXDTQS=134) U Cocaine Metab Screen (QBFWQO=862) U Marijuana (THC) Screen (CUTOFF=50) Ethyl Alcohol (0.00) gm% SARS-CoV-2 RNA (ALFONZO) (NEGATIVE) MRSA (PCR) 03/02/21 Range/Units 06:41 WBC (4.23-9.07) K/mm3 RBC (4.63-6.08) M/mm3 Hgb (13.7-17.5) gm/dl Hct (40.1-51.0) % MCV (79.0-92.2) fl MCH (25.7-32.2) pg MCHC (32.2-35.5) g/dl RDW Std Deviation (35.1-43.9) fL Plt Count (163-337) K/mm3 MPV (9.4-12.3) fl Neut % (Auto) (34.0-67.9) % Lymph % (Auto) (21.8-53.1) % [place] % (Auto) (5.3-12.2) % Eos % (Auto) (0.8-7.0) Baso % (Auto) (0.1-1.2) % Neut # (Auto) (1.78-5.38) K/mm3 Lymph # (Auto) (1.32-3.57) K/mm3 [place] # (Auto) (0.30-0.82) K/mm3 Eos # (Auto) (0.04-0.54) K/mm3 Baso # (Auto) (0.01-0.08) K/mm3 Manual Slide Review PT (9.7-12.0) SECONDS INR APTT (21.7-31.4) SECONDS D-Dimer, Quantitative (0.19-0.50) mg/L Puncture Site ABG pH (7.35-7.45) ABG pCO2 (35.0-45.0) mmHg ABG pO2 (80.0-100.0) mmHg ABG HCO3 (22.0-26.0) meq/L ABG O2 Saturation (96.0-97.0) % ABG Base Excess (-2-2.0) Vishal Test O2 Delivery Device Oxygen Flow Rate Sodium (136-145) mEq/L Potassium (3.5-5.1) mEq/L Chloride (98-107) mEq/L Carbon Dioxide (21-32) mEq/L Anion Gap (5-15) BUN (7-18) mg/dL Creatinine (0.7-1.3) mg/dL Est Cr Clr Drug Dosing mL/min Estimated GFR (MDRD) (>60) mL/min BUN/Creatinine Ratio (14-18) Glucose (70-99) mg/dL POC Glucose 131 H (70-99) mg/dL Hemoglobin A1c ( - 5.6) % Lactic Acid (0.4-2.0) mmol/L Calcium (8.5-10.1) mg/dL Phosphorus (2.6-4.7) mg/dL Magnesium (1.8-2.4) mg/dL Total Bilirubin (0.2-1.0) mg/dL AST (15-37) U/L ALT (16-63) U/L Alkaline Phosphatase (46-116) U/L Troponin I (0.00-0.056) ng/mL C-Reactive Protein (<1.0) mg/dL NT-Pro-B Natriuret Pep (0-125) pg/mL Total Protein (6.4-8.2) g/dl Albumin (3.4-5.0) g/dl Globulin gm/dL Albumin/Globulin Ratio (1-2) Procalcitonin ng/mL TSH 3rd Generation (0.358-3.74) uIU/mL Urine Opiates Screen (FBTANL=677) Ur Buprenorphine Scrn (CUTOFF=10) Ur Oxycodone Screen (KGY5EE=866) Urine Methadone Screen (GIB7SS=728) Ur Propoxyphene Screen (CUXWTQ=203) Ur Barbiturates Screen (EUIQYA=194) Ur Tricyclics Screen (RLMSBE=406) Ur Phencyclidine Scrn (CUTOFF=25) Ur Amphetamine Screen (OIQJBK=544) U Methamphetamines Scrn (VNJJZE=194) U Benzodiazepines Scrn (BGAUAU=539) U Cocaine Metab Screen (UBONDK=299) U Marijuana (THC) Screen (CUTOFF=50) Ethyl Alcohol (0.00) gm% SARS-CoV-2 RNA (ALFONZO) (NEGATIVE) MRSA (PCR) Med Orders - Current: Current Medications Acetaminophen (Acetaminophen 325 Mg Tab) 650 mg PO Q4H PRN PRN Reason: Pain (Mild 1-3)/fever Last Admin: 03/01/21 22:23 Dose: 650 mg Documented by: Albuterol/Ipratropium (Albuterol/Ipratropium 3.0-0.5 Mg/3 Ml Neb Soln) 3 ml NEB Q4H PRN PRN Reason: Shortness Of Breath/wheezing Aspirin (Aspirin 81 Mg Tab.Chew) 81 mg PO DAILY [facility] Docusate Sodium (Docusate Sodium 100 Mg Cap) 100 mg PO BID PRN PRN Reason: Constipation Furosemide (Furosemide 40 Mg/4 Ml Vial) 40 mg IVPUSH BID [facility] Last Admin: 03/01/21 20:16 Dose: 40 mg Documented by: Insulin Human Lispro (Insulin Lispro 100 Unit/Ml 10 Ml Vial) 0 unit SUBCUT QIDACANDBED [facility]; Protocol Last Admin: 03/02/21 06:50 Dose: Not Given Documented by: Magnesium Hydroxide (Magnesium Hydroxide 400 Mg/5 Ml Susp 30 Ml Cup) 30 ml PO Q12H PRN PRN Reason: Constipation Last Admin: 03/01/21 20:16 Dose: 30 ml Documented by: Metoprolol Succinate (Metoprolol Succinate 25 Mg Tab.Er) 25 mg PO DAILY [facility] Miscellaneous Information (Remove Nicotine Patch) 1 ea TRDERM Q24H [facility] Nicotine (Nicotine 14 Mg/24 Hr Patch) 14 mg TRDERM Q24H [facility] Last Admin: 03/01/21 18:24 Dose: Not Given Documented by: Ondansetron HCl (Ondansetron 4 Mg/2 Ml Sdv) 4 mg IV Q6H PRN PRN Reason: Nausea/Vomiting Oxycodone HCl (Oxycodone 5 Mg Tab) 5 mg PO Q4H PRN PRN Reason: Pain Last Admin: 03/01/21 20:16 Dose: 5 mg Documented by: Rivaroxaban (Rivaroxaban 15 Mg Tab) 15 mg PO BID [facility] Stop: 03/22/21 21:01 Last Admin: 03/01/21 20:17 Dose: 15 mg Documented by: Sodium Chloride (Sodium Chloride 0.9% 10 Ml Syringe) 10 ml FLUSH ONETIME PRN PRN Reason: IV FLUSH Last Admin: 03/01/21 12:09 Dose: 10 ml Documented by: Trazodone HCl (Trazodone 50 Mg Tab) 25 mg PO ONETIME PRN PRN Reason: Anxiety Last Admin: 03/01/21 22:23 Dose: 25 mg Documented by: Discontinued Medications Acetaminophen (Acetaminophen 325 Mg Tab) 975 mg PO ONETIME ONE Stop: 03/01/21 10:49 Last Admin: 03/01/21 11:10 Dose: 975 mg Documented by: Albuterol/Ipratropium (Albuterol/Ipratropium 3.0-0.5 Mg/3 Ml Neb Soln) 3 ml NEB Q4H PRN PRN Reason: Shortness Of Breath/wheezing Last Admin: 03/01/21 09:31 Dose: 3 ml Documented by: Diphenhydramine HCl (Diphenhydramine 50 Mg/Ml Sdv) 50 mg IVPUSH ONETIME ONE Stop: 03/01/21 11:10 Last Admin: 03/01/21 11:25 Dose: 50 mg Documented by: Furosemide (Furosemide 40 Mg/4 Ml Vial) 40 mg IVPUSH NOW ONE Stop: 03/01/21 10:04 Last Admin: 03/01/21 10:25 Dose: 40 mg Documented by: Sodium Chloride (Normal Saline) 1,000 mls @ 75 mls/hr IV ASDIRECTED LEIGHA Last Admin: 03/01/21 10:00 Dose: 75 mls/hr Documented by: Magnesium Sulfate 2 gm/ Premix 50 mls @ 12.5 mls/hr IV ONETIME ONE Stop: 03/01/21 14:03 Last Admin: 03/01/21 10:25 Dose: 12.5 mls/hr Documented by: Sodium Chloride (Normal Saline) 100 mls @ 75 mls/hr IV ASDIRECTED LEIGHA Sodium Chloride (Normal Saline) 1,000 mls @ 75 mls/hr IV ASDIRECTED LEIGHA Stop: 03/02/21 04:49 Iopamidol (Iopamidol 755 Mg/Ml 100 Ml Bottle) 100 ml IVPUSH ONETIME ONE Stop: 03/01/21 10:48 Last Admin: 03/01/21 12:09 Dose: 100 ml Documented by: Lorazepam (Lorazepam 2 Mg/Ml Sdv) 0.5 mg IVPUSH ONETIME ONE Stop: 03/01/21 12:38 Last Admin: 03/01/21 12:50 Dose: 0.5 mg Documented by: Lorazepam (Lorazepam 2 Mg/Ml Sdv) 1 mg IVPUSH ONETIME ONE Stop: 03/01/21 13:42 Last Admin: 03/01/21 15:47 Dose: Not Given Documented by: Methylprednisolone Sodium Succinate (Methylprednisolone Sodium Succinate 125 Mg/2 Ml Sdv) 125 mg IVPUSH ONETIME ONE Stop: 03/01/21 11:09 Last Admin: 03/01/21 11:25 Dose: 125 mg Documented by: Rivaroxaban (Rivaroxaban 15 Mg Tab) 15 mg PO ONETIME ONE Stop: 03/01/21 12:42 Last Admin: 03/01/21 13:20 Dose: 15 mg Documented by: - Patient Data Lab Results Last 24 hrs: Laboratory Results - last 24 hr 03/01/21 03/01/21 03/01/21 Range/Units 08:55 08:55 08:55 WBC 10.29 H (4.23-9.07) K/mm3 RBC 4.40 L (4.63-6.08) M/mm3 Hgb 13.9 (13.7-17.5) gm/dl Hct 42.6 (40.1-51.0) % MCV 96.8 H (79.0-92.2) fl MCH 31.6 (25.7-32.2) pg MCHC 32.6 (32.2-35.5) g/dl RDW Std Deviation 52.6 H (35.1-43.9) fL Plt Count 210 (163-337) K/mm3 MPV 10.5 (9.4-12.3) fl Neut % (Auto) 73.6 H (34.0-67.9) % Lymph % (Auto) 11.6 L (21.8-53.1) % [place] % (Auto) 11.7 (5.3-12.2) % Eos % (Auto) 2.1 (0.8-7.0) Baso % (Auto) 0.6 (0.1-1.2) % Neut # (Auto) 7.58 H (1.78-5.38) K/mm3 Lymph # (Auto) 1.19 L (1.32-3.57) K/mm3 [place] # (Auto) 1.20 H (0.30-0.82) K/mm3 Eos # (Auto) 0.22 (0.04-0.54) K/mm3 Baso # (Auto) 0.06 (0.01-0.08) K/mm3 Manual Slide Review PT (9.7-12.0) SECONDS INR APTT (21.7-31.4) SECONDS D-Dimer, Quantitative (0.19-0.50) mg/L Puncture Site ABG pH (7.35-7.45) ABG pCO2 (35.0-45.0) mmHg ABG pO2 (80.0-100.0) mmHg ABG HCO3 (22.0-26.0) meq/L ABG O2 Saturation (96.0-97.0) % ABG Base Excess (-2-2.0) Vishal Test O2 Delivery Device Oxygen Flow Rate Sodium 142 (136-145) mEq/L Potassium 4.4 (3.5-5.1) mEq/L Chloride 109 H (98-107) mEq/L Carbon Dioxide 21 (21-32) mEq/L Anion Gap 16.4 H (5-15) BUN 16 (7-18) mg/dL Creatinine 1.3 (0.7-1.3) mg/dL Est Cr Clr Drug Dosing 66.74 mL/min Estimated GFR (MDRD) 56 (>60) mL/min BUN/Creatinine Ratio 12.3 L (14-18) Glucose 148 H (70-99) mg/dL POC Glucose (70-99) mg/dL Hemoglobin A1c ( - 5.6) % Lactic Acid (0.4-2.0) mmol/L Calcium 7.8 L (8.5-10.1) mg/dL Phosphorus (2.6-4.7) mg/dL Magnesium 1.6 L (1.8-2.4) mg/dL Total Bilirubin 0.7 (0.2-1.0) mg/dL AST 47 H (15-37) U/L ALT 56 (16-63) U/L Alkaline Phosphatase 94 (46-116) U/L Troponin I 0.066 H* (0.00-0.056) ng/mL C-Reactive Protein 4.4 H* (<1.0) mg/dL NT-Pro-B Natriuret Pep 5959 H (0-125) pg/mL Total Protein 6.8 (6.4-8.2) g/dl Albumin 3.0 L (3.4-5.0) g/dl Globulin 3.8 gm/dL Albumin/Globulin Ratio 0.8 L (1-2) Procalcitonin ng/mL TSH 3rd Generation (0.358-3.74) uIU/mL Urine Opiates Screen (GNYFHG=697) Ur Buprenorphine Scrn (CUTOFF=10) Ur Oxycodone Screen (BRC9ZM=829) Urine Methadone Screen (TAM7BV=535) Ur Propoxyphene Screen (TASKTE=554) Ur Barbiturates Screen (UYYNML=612) Ur Tricyclics Screen (HUXYKA=500) Ur Phencyclidine Scrn (CUTOFF=25) Ur Amphetamine Screen (PILWJV=339) U Methamphetamines Scrn (VBIWOR=790) U Benzodiazepines Scrn (GLALQA=967) U Cocaine Metab Screen (KDPXQU=943) U Marijuana (THC) Screen (CUTOFF=50) Ethyl Alcohol (0.00) gm% SARS-CoV-2 RNA (ALFONZO) (NEGATIVE) MRSA (PCR) 03/01/21 03/01/21 03/01/21 Range/Units 08:55 08:55 08:55 WBC (4.23-9.07) K/mm3 RBC (4.63-6.08) M/mm3 Hgb (13.7-17.5) gm/dl Hct (40.1-51.0) % MCV (79.0-92.2) fl MCH (25.7-32.2) pg MCHC (32.2-35.5) g/dl RDW Std Deviation (35.1-43.9) fL Plt Count (163-337) K/mm3 MPV (9.4-12.3) fl Neut % (Auto) (34.0-67.9) % Lymph % (Auto) (21.8-53.1) % [place] % (Auto) (5.3-12.2) % Eos % (Auto) (0.8-7.0) Baso % (Auto) (0.1-1.2) % Neut # (Auto) (1.78-5.38) K/mm3 Lymph # (Auto) (1.32-3.57) K/mm3 [place] # (Auto) (0.30-0.82) K/mm3 Eos # (Auto) (0.04-0.54) K/mm3 Baso # (Auto) (0.01-0.08) K/mm3 Manual Slide Review PT (9.7-12.0) SECONDS INR APTT (21.7-31.4) SECONDS D-Dimer, Quantitative (0.19-0.50) mg/L Puncture Site ABG pH (7.35-7.45) ABG pCO2 (35.0-45.0) mmHg ABG pO2 (80.0-100.0) mmHg ABG HCO3 (22.0-26.0) meq/L ABG O2 Saturation (96.0-97.0) % ABG Base Excess (-2-2.0) Vishal Test O2 Delivery Device Oxygen Flow Rate Sodium (136-145) mEq/L Potassium (3.5-5.1) mEq/L Chloride (98-107) mEq/L Carbon Dioxide (21-32) mEq/L Anion Gap (5-15) BUN (7-18) mg/dL Creatinine (0.7-1.3) mg/dL Est Cr Clr Drug Dosing mL/min Estimated GFR (MDRD) (>60) mL/min BUN/Creatinine Ratio (14-18) Glucose (70-99) mg/dL POC Glucose (70-99) mg/dL Hemoglobin A1c ( - 5.6) % Lactic Acid (0.4-2.0) mmol/L Calcium (8.5-10.1) mg/dL Phosphorus 3.1 (2.6-4.7) mg/dL Magnesium (1.8-2.4) mg/dL Total Bilirubin (0.2-1.0) mg/dL AST (15-37) U/L ALT (16-63) U/L Alkaline Phosphatase (46-116) U/L Troponin I (0.00-0.056) ng/mL C-Reactive Protein (<1.0) mg/dL NT-Pro-B Natriuret Pep (0-125) pg/mL Total Protein (6.4-8.2) g/dl Albumin (3.4-5.0) g/dl Globulin gm/dL Albumin/Globulin Ratio (1-2) Procalcitonin 0.07 ng/mL TSH 3rd Generation 0.741 (0.358-3.74) uIU/mL Urine Opiates Screen (DEURCE=044) Ur Buprenorphine Scrn (CUTOFF=10) Ur Oxycodone Screen (FOF9CX=188) Urine Methadone Screen (DGD2UI=783) Ur Propoxyphene Screen (ALCHPC=807) Ur Barbiturates Screen (LDZVHL=327) Ur Tricyclics Screen (CPMLFQ=310) Ur Phencyclidine Scrn (CUTOFF=25) Ur Amphetamine Screen (ERRMSD=111) U Methamphetamines Scrn (TPGBPR=585) U Benzodiazepines Scrn (TJLOMR=807) U Cocaine Metab Screen (TGWACK=680) U Marijuana (THC) Screen (CUTOFF=50) Ethyl Alcohol (0.00) gm% SARS-CoV-2 RNA (ALFONZO) (NEGATIVE) MRSA (PCR) 03/01/21 03/01/21 03/01/21 Range/Units 08:55 08:55 09:17 WBC (4.23-9.07) K/mm3 RBC (4.63-6.08) M/mm3 Hgb (13.7-17.5) gm/dl Hct (40.1-51.0) % MCV (79.0-92.2) fl MCH (25.7-32.2) pg MCHC (32.2-35.5) g/dl RDW Std Deviation (35.1-43.9) fL Plt Count (163-337) K/mm3 MPV (9.4-12.3) fl Neut % (Auto) (34.0-67.9) % Lymph % (Auto) (21.8-53.1) % [place] % (Auto) (5.3-12.2) % Eos % (Auto) (0.8-7.0) Baso % (Auto) (0.1-1.2) % Neut # (Auto) (1.78-5.38) K/mm3 Lymph # (Auto) (1.32-3.57) K/mm3 [place] # (Auto) (0.30-0.82) K/mm3 Eos # (Auto) (0.04-0.54) K/mm3 Baso # (Auto) (0.01-0.08) K/mm3 Manual Slide Review PT (9.7-12.0) SECONDS INR APTT (21.7-31.4) SECONDS D-Dimer, Quantitative (0.19-0.50) mg/L Puncture Site Lt radial ABG pH 7.39 (7.35-7.45) ABG pCO2 35.7 (35.0-45.0) mmHg ABG pO2 61.0 L (80.0-100.0) mmHg ABG HCO3 21.1 L (22.0-26.0) meq/L ABG O2 Saturation 86.8 L (96.0-97.0) % ABG Base Excess -2.7 L (-2-2.0) Vishal Test Positive O2 Delivery Device Nasal cannula Oxygen Flow Rate 2.0 Sodium (136-145) mEq/L Potassium (3.5-5.1) mEq/L Chloride (98-107) mEq/L Carbon Dioxide (21-32) mEq/L Anion Gap (5-15) BUN (7-18) mg/dL Creatinine (0.7-1.3) mg/dL Est Cr Clr Drug Dosing mL/min Estimated GFR (MDRD) (>60) mL/min BUN/Creatinine Ratio (14-18) Glucose (70-99) mg/dL POC Glucose (70-99) mg/dL Hemoglobin A1c 8.0 H ( - 5.6) % Lactic Acid (0.4-2.0) mmol/L Calcium (8.5-10.1) mg/dL Phosphorus (2.6-4.7) mg/dL Magnesium (1.8-2.4) mg/dL Total Bilirubin (0.2-1.0) mg/dL AST (15-37) U/L ALT (16-63) U/L Alkaline Phosphatase (46-116) U/L Troponin I (0.00-0.056) ng/mL C-Reactive Protein (<1.0) mg/dL NT-Pro-B Natriuret Pep (0-125) pg/mL Total Protein (6.4-8.2) g/dl Albumin (3.4-5.0) g/dl Globulin gm/dL Albumin/Globulin Ratio (1-2) Procalcitonin ng/mL TSH 3rd Generation (0.358-3.74) uIU/mL Urine Opiates Screen (KHMRLL=765) Ur Buprenorphine Scrn (CUTOFF=10) Ur Oxycodone Screen (PMA8HO=505) Urine Methadone Screen (QOV6ZC=696) Ur Propoxyphene Screen (JIXALW=579) Ur Barbiturates Screen (IXIFSH=417) Ur Tricyclics Screen (WUDLRC=431) Ur Phencyclidine Scrn (CUTOFF=25) Ur Amphetamine Screen (PHWZLH=520) U Methamphetamines Scrn (TLNBBF=660) U Benzodiazepines Scrn (AAIOGI=646) U Cocaine Metab Screen (PYMUVN=511) U Marijuana (THC) Screen (CUTOFF=50) Ethyl Alcohol 0.00 (0.00) gm% SARS-CoV-2 RNA (ALFONZO) (NEGATIVE) MRSA (PCR) 03/01/21 03/01/21 03/01/21 Range/Units 09:38 09:38 09:50 WBC (4.23-9.07) K/mm3 RBC (4.63-6.08) M/mm3 Hgb (13.7-17.5) gm/dl Hct (40.1-51.0) % MCV (79.0-92.2) fl MCH (25.7-32.2) pg MCHC (32.2-35.5) g/dl RDW Std Deviation (35.1-43.9) fL Plt Count (163-337) K/mm3 MPV (9.4-12.3) fl Neut % (Auto) (34.0-67.9) % Lymph % (Auto) (21.8-53.1) % [place] % (Auto) (5.3-12.2) % Eos % (Auto) (0.8-7.0) Baso % (Auto) (0.1-1.2) % Neut # (Auto) (1.78-5.38) K/mm3 Lymph # (Auto) (1.32-3.57) K/mm3 [place] # (Auto) (0.30-0.82) K/mm3 Eos # (Auto) (0.04-0.54) K/mm3 Baso # (Auto) (0.01-0.08) K/mm3 Manual Slide Review PT 12.1 H (9.7-12.0) SECONDS INR 1.13 APTT 23.4 (21.7-31.4) SECONDS D-Dimer, Quantitative 11.93 H (0.19-0.50) mg/L Puncture Site ABG pH (7.35-7.45) ABG pCO2 (35.0-45.0) mmHg ABG pO2 (80.0-100.0) mmHg ABG HCO3 (22.0-26.0) meq/L ABG O2 Saturation (96.0-97.0) % ABG Base Excess (-2-2.0) Vishal Test O2 Delivery Device Oxygen Flow Rate Sodium (136-145) mEq/L Potassium (3.5-5.1) mEq/L Chloride (98-107) mEq/L Carbon Dioxide (21-32) mEq/L Anion Gap (5-15) BUN (7-18) mg/dL Creatinine (0.7-1.3) mg/dL Est Cr Clr Drug Dosing mL/min Estimated GFR (MDRD) (>60) mL/min BUN/Creatinine Ratio (14-18) Glucose (70-99) mg/dL POC Glucose (70-99) mg/dL Hemoglobin A1c ( - 5.6) % Lactic Acid 1.1 (0.4-2.0) mmol/L Calcium (8.5-10.1) mg/dL Phosphorus (2.6-4.7) mg/dL Magnesium (1.8-2.4) mg/dL Total Bilirubin (0.2-1.0) mg/dL AST (15-37) U/L ALT (16-63) U/L Alkaline Phosphatase (46-116) U/L Troponin I (0.00-0.056) ng/mL C-Reactive Protein (<1.0) mg/dL NT-Pro-B Natriuret Pep (0-125) pg/mL Total Protein (6.4-8.2) g/dl Albumin (3.4-5.0) g/dl Globulin gm/dL Albumin/Globulin Ratio (1-2) Procalcitonin ng/mL TSH 3rd Generation (0.358-3.74) uIU/mL Urine Opiates Screen (WNIYTO=302) Ur Buprenorphine Scrn (CUTOFF=10) Ur Oxycodone Screen (VOE5IK=127) Urine Methadone Screen (JWS2PJ=823) Ur Propoxyphene Screen (KQRBVU=844) Ur Barbiturates Screen (CCCRQI=053) Ur Tricyclics Screen (QAQMYW=440) Ur Phencyclidine Scrn (CUTOFF=25) Ur Amphetamine Screen (TMLNGN=095) U Methamphetamines Scrn (OVTNTD=795) U Benzodiazepines Scrn (PRGYLF=572) U Cocaine Metab Screen (CBVDWS=941) U Marijuana (THC) Screen (CUTOFF=50) Ethyl Alcohol (0.00) gm% SARS-CoV-2 RNA (ALFONZO) Negative (NEGATIVE) MRSA (PCR) 03/01/21 03/01/21 03/01/21 Range/Units 16:20 17:59 18:04 WBC (4.23-9.07) K/mm3 RBC (4.63-6.08) M/mm3 Hgb (13.7-17.5) gm/dl Hct (40.1-51.0) % MCV (79.0-92.2) fl MCH (25.7-32.2) pg MCHC (32.2-35.5) g/dl RDW Std Deviation (35.1-43.9) fL Plt Count (163-337) K/mm3 MPV (9.4-12.3) fl Neut % (Auto) (34.0-67.9) % Lymph % (Auto) (21.8-53.1) % [place] % (Auto) (5.3-12.2) % Eos % (Auto) (0.8-7.0) Baso % (Auto) (0.1-1.2) % Neut # (Auto) (1.78-5.38) K/mm3 Lymph # (Auto) (1.32-3.57) K/mm3 [place] # (Auto) (0.30-0.82) K/mm3 Eos # (Auto) (0.04-0.54) K/mm3 Baso # (Auto) (0.01-0.08) K/mm3 Manual Slide Review PT (9.7-12.0) SECONDS INR APTT (21.7-31.4) SECONDS D-Dimer, Quantitative (0.19-0.50) mg/L Puncture Site ABG pH (7.35-7.45) ABG pCO2 (35.0-45.0) mmHg ABG pO2 (80.0-100.0) mmHg ABG HCO3 (22.0-26.0) meq/L ABG O2 Saturation (96.0-97.0) % ABG Base Excess (-2-2.0) Vishal Test O2 Delivery Device Oxygen Flow Rate Sodium (136-145) mEq/L Potassium (3.5-5.1) mEq/L Chloride (98-107) mEq/L Carbon Dioxide (21-32) mEq/L Anion Gap (5-15) BUN (7-18) mg/dL Creatinine (0.7-1.3) mg/dL Est Cr Clr Drug Dosing mL/min Estimated GFR (MDRD) (>60) mL/min BUN/Creatinine Ratio (14-18) Glucose (70-99) mg/dL POC Glucose 165 H (70-99) mg/dL Hemoglobin A1c ( - 5.6) % Lactic Acid (0.4-2.0) mmol/L Calcium (8.5-10.1) mg/dL Phosphorus (2.6-4.7) mg/dL Magnesium (1.8-2.4) mg/dL Total Bilirubin (0.2-1.0) mg/dL AST (15-37) U/L ALT (16-63) U/L Alkaline Phosphatase (46-116) U/L Troponin I (0.00-0.056) ng/mL C-Reactive Protein (<1.0) mg/dL NT-Pro-B Natriuret Pep (0-125) pg/mL Total Protein (6.4-8.2) g/dl Albumin (3.4-5.0) g/dl Globulin gm/dL Albumin/Globulin Ratio (1-2) Procalcitonin ng/mL TSH 3rd Generation (0.358-3.74) uIU/mL Urine Opiates Screen Negative (OIUMWY=171) Ur Buprenorphine Scrn Negative (CUTOFF=10) Ur Oxycodone Screen Negative (QNL3GE=675) Urine Methadone Screen Negative (CWF6JC=541) Ur Propoxyphene Screen Negative (PPVLFG=875) Ur Barbiturates Screen Negative (DNYVOI=810) Ur Tricyclics Screen Negative (OTRWOK=176) Ur Phencyclidine Scrn Negative (CUTOFF=25) Ur Amphetamine Screen Presumptive positive H (QCMUKG=139) U Methamphetamines Scrn Presumptive positive H (SFGHHG=929) U Benzodiazepines Scrn Presumptive positive H (CHWHJZ=258) U Cocaine Metab Screen Negative (FLOVON=518) U Marijuana (THC) Screen Negative (CUTOFF=50) Ethyl Alcohol (0.00) gm% SARS-CoV-2 RNA (ALFONZO) (NEGATIVE) MRSA (PCR) Negative 03/01/21 03/02/21 03/02/21 Range/Units 20:15 04:52 04:52 WBC 13.86 H (4.23-9.07) K/mm3 RBC 4.43 L (4.63-6.08) M/mm3 Hgb 13.8 (13.7-17.5) gm/dl Hct 42.8 (40.1-51.0) % MCV 96.6 H (79.0-92.2) fl MCH 31.2 (25.7-32.2) pg MCHC 32.2 (32.2-35.5) g/dl RDW Std Deviation 51.5 H (35.1-43.9) fL Plt Count 196 (163-337) K/mm3 MPV 10.3 (9.4-12.3) fl Neut % (Auto) 89.1 H (34.0-67.9) % Lymph % (Auto) 5.8 L (21.8-53.1) % [place] % (Auto) 4.7 L (5.3-12.2) % Eos % (Auto) 0 L (0.8-7.0) Baso % (Auto) 0.1 (0.1-1.2) % Neut # (Auto) 12.35 H (1.78-5.38) K/mm3 Lymph # (Auto) 0.81 L (1.32-3.57) K/mm3 [place] # (Auto) 0.65 (0.30-0.82) K/mm3 Eos # (Auto) 0.00 L (0.04-0.54) K/mm3 Baso # (Auto) 0.01 (0.01-0.08) K/mm3 Manual Slide Review Abnormal smear PT (9.7-12.0) SECONDS INR APTT (21.7-31.4) SECONDS D-Dimer, Quantitative (0.19-0.50) mg/L Puncture Site ABG pH (7.35-7.45) ABG pCO2 (35.0-45.0) mmHg ABG pO2 (80.0-100.0) mmHg ABG HCO3 (22.0-26.0) meq/L ABG O2 Saturation (96.0-97.0) % ABG Base Excess (-2-2.0) Vishal Test O2 Delivery Device Oxygen Flow Rate Sodium 139 (136-145) mEq/L Potassium 4.5 (3.5-5.1) mEq/L Chloride 105 (98-107) mEq/L Carbon Dioxide 25 (21-32) mEq/L Anion Gap 13.5 (5-15) BUN 21 H (7-18) mg/dL Creatinine 1.3 (0.7-1.3) mg/dL Est Cr Clr Drug Dosing 66.74 mL/min Estimated GFR (MDRD) 56 (>60) mL/min BUN/Creatinine Ratio 16.2 (14-18) Glucose 163 H (70-99) mg/dL POC Glucose 205 H (70-99) mg/dL Hemoglobin A1c ( - 5.6) % Lactic Acid (0.4-2.0) mmol/L Calcium 8.2 L (8.5-10.1) mg/dL Phosphorus (2.6-4.7) mg/dL Magnesium 2.1 (1.8-2.4) mg/dL Total Bilirubin 0.7 (0.2-1.0) mg/dL AST 36 (15-37) U/L ALT 53 (16-63) U/L Alkaline Phosphatase 84 (46-116) U/L Troponin I 0.043 (0.00-0.056) ng/mL C-Reactive Protein 6.5 H* (<1.0) mg/dL NT-Pro-B Natriuret Pep (0-125) pg/mL Total Protein 6.7 (6.4-8.2) g/dl Albumin 2.9 L (3.4-5.0) g/dl Globulin 3.8 gm/dL Albumin/Globulin Ratio 0.8 L (1-2) Procalcitonin ng/mL TSH 3rd Generation (0.358-3.74) uIU/mL Urine Opiates Screen (IEPFGN=738) Ur Buprenorphine Scrn (CUTOFF=10) Ur Oxycodone Screen (NOB3WO=442) Urine Methadone Screen (PXE1MD=765) Ur Propoxyphene Screen (VCVKCC=769) Ur Barbiturates Screen (ESWQPE=291) Ur Tricyclics Screen (KGJVTE=972) Ur Phencyclidine Scrn (CUTOFF=25) Ur Amphetamine Screen (XHFLED=073) U Methamphetamines Scrn (KVDVUH=276) U Benzodiazepines Scrn (ZPHEOX=796) U Cocaine Metab Screen (IKZOWT=572) U Marijuana (THC) Screen (CUTOFF=50) Ethyl Alcohol (0.00) gm% SARS-CoV-2 RNA (ALFONZO) (NEGATIVE) MRSA (PCR) 03/02/21 Range/Units 06:41 WBC (4.23-9.07) K/mm3 RBC (4.63-6.08) M/mm3 Hgb (13.7-17.5) gm/dl Hct (40.1-51.0) % MCV (79.0-92.2) fl MCH (25.7-32.2) pg MCHC (32.2-35.5) g/dl RDW Std Deviation (35.1-43.9) fL Plt Count (163-337) K/mm3 MPV (9.4-12.3) fl Neut % (Auto) (34.0-67.9) % Lymph % (Auto) (21.8-53.1) % [place] % (Auto) (5.3-12.2) % Eos % (Auto) (0.8-7.0) Baso % (Auto) (0.1-1.2) % Neut # (Auto) (1.78-5.38) K/mm3 Lymph # (Auto) (1.32-3.57) K/mm3 [place] # (Auto) (0.30-0.82) K/mm3 Eos # (Auto) (0.04-0.54) K/mm3 Baso # (Auto) (0.01-0.08) K/mm3 Manual Slide Review PT (9.7-12.0) SECONDS INR APTT (21.7-31.4) SECONDS D-Dimer, Quantitative (0.19-0.50) mg/L Puncture Site ABG pH (7.35-7.45) ABG pCO2 (35.0-45.0) mmHg ABG pO2 (80.0-100.0) mmHg ABG HCO3 (22.0-26.0) meq/L ABG O2 Saturation (96.0-97.0) % ABG Base Excess (-2-2.0) Vishal Test O2 Delivery Device Oxygen Flow Rate Sodium (136-145) mEq/L Potassium (3.5-5.1) mEq/L Chloride (98-107) mEq/L Carbon Dioxide (21-32) mEq/L Anion Gap (5-15) BUN (7-18) mg/dL Creatinine (0.7-1.3) mg/dL Est Cr Clr Drug Dosing mL/min Estimated GFR (MDRD) (>60) mL/min BUN/Creatinine Ratio (14-18) Glucose (70-99) mg/dL POC Glucose 131 H (70-99) mg/dL Hemoglobin A1c ( - 5.6) % Lactic Acid (0.4-2.0) mmol/L Calcium (8.5-10.1) mg/dL Phosphorus (2.6-4.7) mg/dL Magnesium (1.8-2.4) mg/dL Total Bilirubin (0.2-1.0) mg/dL AST (15-37) U/L ALT (16-63) U/L Alkaline Phosphatase (46-116) U/L Troponin I (0.00-0.056) ng/mL C-Reactive Protein (<1.0) mg/dL NT-Pro-B Natriuret Pep (0-125) pg/mL Total Protein (6.4-8.2) g/dl Albumin (3.4-5.0) g/dl Globulin gm/dL Albumin/Globulin Ratio (1-2) Procalcitonin ng/mL TSH 3rd Generation (0.358-3.74) uIU/mL Urine Opiates Screen (ZHIVLW=628) Ur Buprenorphine Scrn (CUTOFF=10) Ur Oxycodone Screen (XIO3QH=739) Urine Methadone Screen (WQI9NT=302) Ur Propoxyphene Screen (GOXVTA=614) Ur Barbiturates Screen (TJVJZT=763) Ur Tricyclics Screen (XFSRPD=228) Ur Phencyclidine Scrn (CUTOFF=25) Ur Amphetamine Screen (YLDBVZ=363) U Methamphetamines Scrn (RZGGNI=438) U Benzodiazepines Scrn (XATDNX=020) U Cocaine Metab Screen (EESYYJ=220) U Marijuana (THC) Screen (CUTOFF=50) Ethyl Alcohol (0.00) gm% SARS-CoV-2 RNA (ALFONZO) (NEGATIVE) MRSA (PCR) Result Diagrams: 03/02/21 04:52 03/02/21 04:52 Sepsis Event Note - Evaluation Sepsis Screening Result: No Definite Risk - Focused Exam Vital Signs: Vital Signs Temp Resp BP Pulse Ox Pulse Ox 03/02/21 06:46 97 03/02/21 06:28 93 L 03/02/21 04:54 92 L 03/02/21 04:00 97.2 F 24 H 109/85 96 03/02/21 00:00 97.5 F 23 H 90/61 92 L 03/01/21 21:45 91 L 03/01/21 21:40 89 L 03/01/21 21:00 97.7 F 24 H 95/78 99 - Problem List & Annotations (1) Pulmonary embolism SNOMED Code(s): 79566815 Code(s): I26.99 - OTHER PULMONARY EMBOLISM WITHOUT ACUTE COR PULMONALE Status: Acute Priority: High Current Visit: Yes Qualifiers: Pulmonary embolism type: unspecified Chronicity: acute Acute cor pulmonale presence: unspecified Qualified Code(s): I26.99 - Other pulmonary embolism without acute cor pulmonale (2) CHF (congestive heart failure) SNOMED Code(s): 42865680 Code(s): I50.9 - HEART FAILURE, UNSPECIFIED Status: Suspected Priority: High Current Visit: Yes Qualifiers: Heart failure type: unspecified Heart failure chronicity: acute Qualified Code(s): I50.9 - Heart failure, unspecified (3) Mediastinal adenopathy SNOMED Code(s): 04172180 Code(s): R59.0 - LOCALIZED ENLARGED LYMPH NODES Status: Chronic Priority: Medium Current Visit: No (4) Dyspnea SNOMED Code(s): 141864263 Code(s): R06.00 - DYSPNEA, UNSPECIFIED Status: Acute Priority: High Current Visit: Yes Qualifiers: Dyspnea type: dyspnea on exertion Qualified Code(s): R06.00 - Dyspnea, unspecified (5) Hypoxia SNOMED Code(s): 137622211 Code(s): R09.02 - HYPOXEMIA Status: Acute Priority: High Current Visit: Yes (6) Elevated troponin I level SNOMED Code(s): 691086232 Code(s): R77.8 - OTHER SPECIFIED ABNORMALITIES OF PLASMA PROTEINS Status: Chronic Priority: Medium Current Visit: Yes (7) Elevated d-dimer SNOMED Code(s): 800420899 Code(s): R79.89 - OTHER SPECIFIED ABNORMAL FINDINGS OF BLOOD CHEMISTRY Status: Acute Priority: High Current Visit: Yes (8) Leukocytosis SNOMED Code(s): 947390388, 650683902 Code(s): D72.829 - ELEVATED WHITE BLOOD CELL COUNT, UNSPECIFIED Status: Acute Priority: Medium Current Visit: Yes Qualifiers: Leukocytosis type: unspecified Qualified Code(s): D72.829 - Elevated white blood cell count, unspecified (9) High anion gap metabolic acidosis SNOMED Code(s): 56747029 Code(s): E87.2 - ACIDOSIS Status: Acute Priority: Medium Current Visit: Yes (10) Hypomagnesemia SNOMED Code(s): 474016082 Code(s): E83.42 - HYPOMAGNESEMIA Status: Acute Priority: High Current Visit: Yes (11) Peripheral vascular disease SNOMED Code(s): 643864315 Code(s): I73.9 - PERIPHERAL VASCULAR DISEASE, UNSPECIFIED Status: Chronic Priority: High Current Visit: Yes (12) Wound of skin SNOMED Code(s): 090693563 Code(s): T14.8XXA - OTHER INJURY OF UNSPECIFIED BODY REGION, INITIAL ENCOUNTER Status: Acute Priority: High Current Visit: Yes (13) Medically noncompliant SNOMED Code(s): 997664628 Code(s): Z91.19 - PATIENT'S NONCOMPLIANCE W OTH MEDICAL TREATMENT AND REGIMEN Status: Chronic Priority: High Current Visit: Yes (14) Hyperglycemia SNOMED Code(s): 76773804 Code(s): R73.9 - HYPERGLYCEMIA, UNSPECIFIED Status: Acute Priority: High Current Visit: Yes (15) History of prediabetes SNOMED Code(s): 253502655, 057127427 Code(s): Z87.898 - PERSONAL HISTORY OF OTHER SPECIFIED CONDITIONS Status: C hronic Priority: High Current Visit: Yes (16) Obesity (BMI 30.0-34.9) SNOMED Code(s): 255025318712604 Code(s): E66.9 - OBESITY, UNSPECIFIED Status: Chronic Priority: Medium Current Visit: Yes (17) Altered mental status SNOMED Code(s): 127284687 Code(s): R41.82 - ALTERED MENTAL STATUS, UNSPECIFIED Status: Acute Priority: High Current Visit: Yes Qualifiers: Altered mental status type: disorientation Qualified Code(s): R41.0 - Disorientation, unspecified (18) Tobacco use disorder SNOMED Code(s): 442413260 Code(s): F17.200 - NICOTINE DEPENDENCE, UNSPECIFIED, UNCOMPLICATED Status: Chronic Priority: Medium Current Visit: Yes (19) Elevated C-reactive protein (CRP) SNOMED Code(s): 833950863578402 Code(s): R79.82 - ELEVATED C-REACTIVE PROTEIN (CRP) Status: Acute Priority: Medium Current Visit: Yes (20) Pleural effusion SNOMED Code(s): 17038620 Code(s): J90 - PLEURAL EFFUSION, NOT ELSEWHERE CLASSIFIED Status: Acute Priority: High Current Visit: Yes (21) Atelectasis SNOMED Code(s): 85653113 Code(s): J98.11 - ATELECTASIS Status: Acute Priority: High Current Visit: Yes - My Orders Last 24 Hours: My Active Orders 03/01/21 13:52 Blood Glucose Check, Bedside [RC] WITHMEALSANDBED Oxygen Therapy [RC] PRN Up With Assistance [RC] ASDIRECTED VTE/DVT Education [RC] Vital Signs [RC] Q4HR Consult to Case Management/Tumbling Instructor [CONS] Routine Consult to Compensation Director [CONS] Routine Consult to Spiritual Care [CONS] Routine OT Evaluation and Treatment [CONS] Routine PT Evaluation and Treatment [CONS] Routine PT Evaluation and Treatment [CONS] Routine Respiratory Care Assess and Treatment [CONS] Routine Acetaminophen [TylenoL] 650 mg PO Q4H PRN Albuterol/Ipratropium [DuoNeb 3.0-0.5 MG/3 ML] 3 ml NEB Q4H PRN Docusate Sodium [Colace] 100 mg PO BID PRN Magnesium Hydroxide [Milk of Magnesia] 30 ml PO Q12H PRN Ondansetron [Zofran] 4 mg IV Q6H PRN Blood Culture x2 Reflex Set [OM.PC] Stat 03/01/21 13:54 RT Aerosol Therapy [RC] ASDIRECTED 03/01/21 13:55 CULTURE WOUND [RM] Routine 03/01/21 14:10 CULTURE BLOOD [BC] Stat 03/01/21 14:15 RT Incentive Spirometry [RC] ASDIRECTED 03/01/21 14:17 Intake and Output Strict [RC] 04,16 03/01/21 14:33 CULTURE BLOOD [BC] Stat 03/01/21 15:32 Code Status [Resuscitation Status] Routine 03/01/21 16:00 Nicotine [Habitrol] 14 mg TRDERM Q24H 03/01/21 Dinner 2 Gram Sodium Diet [DIET] Consistent Carbohydrate Diet [DIET] Insulin Lispro [HumaLOG] See Protocol SUBCUT QIDACANDBED 03/01/21 21:00 Furosemide [Lasix] 40 mg IVPUSH BID Rivaroxaban [Xarelto] 15 mg PO BID 03/02/21 07:34 LIPID PANEL [CHEM] Routine 03/02/21 09:00 Aspirin 81 mg PO DAILY Metoprolol Succinate [Toprol XL] 25 mg PO DAILY 03/02/21 16:00 Remove Patch 1 ea TRDERM Q24H 03/03/21 05:11 CBC WITH AUTO DIFF [HEME] AM CMP [COMPREHENSIVE METABOLIC PN,CMP] [CHEM] AM CRP [C-REACTIVE PROTEIN] [CHEM] AM MAGNESIUM [CHEM] AM 03/04/21 05:11 CBC WITH AUTO DIFF [HEME] AM CMP [COMPREHENSIVE METABOLIC PN,CMP] [CHEM] AM CRP [C-REACTIVE PROTEIN] [CHEM] AM MAGNESIUM [CHEM] AM 03/05/21 05:11 CBC WITH AUTO DIFF [HEME] AM CMP [COMPREHENSIVE METABOLIC PN,CMP] [CHEM] AM CRP [C-REACTIVE PROTEIN] [CHEM] AM MAGNESIUM [CHEM] AM - Plan Plan:: Assessment - day of admission 03/01/2021 * 65-year-old male presents to ED with respiratory distress * Patient reports he has been very painting multiple vehicles in his shop at home. He also reports chronic difficulty with high humidity * Reports former heavy smoker who is down to half a pack a day. * Reports worsening cough with white sputum and orthopnea but no fever, chills, hemoptysis. * Denies any recent COVID-19 infection. * Significant other reports patient has been noncompliant with medications. Reports [facility] has wanted him to obtain angiogram but he is refusing. * Carries history of fluid retention on "[id number] water pills", chronic back pain, herniated disc causing disability, chronic left ankle wound, anxiety, depression, prediabetes. * Oxygen saturations on ED arrival noted to be 88% -up to 93 to 94% on 2 L via nasal cannula. * Was reportedly hospitalized at the [facility] in [place] for a PE last September. * Twelve-lead EKG obtained in ED shows sinus rhythm at 96 bpm with left axis deviation and inverted P waves in V1 and V2. Consider left atrial enl argement. LVH pattern with tall R wave in V1. T wave inversion in leads I, aVL and V6. Cannot rule out lateral apical wall ischemia. * Chest x-ray obtained shows enlarged heart with findings suspicious for mild CHF. There is also slight parenchymal density within the right mid and lower lung which may represent small area of pneumonia or atelectasis if patient has no infectious symptoms. * CTA obtained in ED: * 1. Pulmonary embolism located within the right upper lobe pulmonary arteries and more prominently within the right lower lung pulmonary arteries. * 2. Prominent lymph nodes within the mediastinum which are stable from prior chest CT. * 3. Right-sided pleural effusion with areas of right basilar atelectasis. * Labs in ED: * WBC 10.29 * Hemoglobin 13.9 * Platelet 210,000 * Neutrophils elevated at 73.6% * Sodium 142 * Potassium 4.4 * Carbon dioxide 21 * Anion gap 16.4 * BUN 16, creatinine 1.3, GFR 56 * Glucose 148 * Calcium 7.8 * Magnesium 1.6 * Total bilirubin 0.7 * AST 47, ALT 56, alkaline phosphatase 94 * Troponin 0.066 * CRP 4.4 * proBNP 5959 * Albumin 3.0 * INR 1.13 * APTT 23.4 * D-dimer 11.93 * Lactic acid 1.1 * TSH 0.741 * SARS Covid 2 RNA negative * ABG is obtained in the left radial showing a pH of 7.39. PCO2 of 35.7. PO2 of 61.0. HCO3 is 21.1. O2 saturations 86.8. Base excess is -2.7. This is on 2 L via nasal cannula. * Is given an albuterol neb, 2 g magnesium, 975 mg acetaminophen, 40 mg IV push Lasix, 50 mg Xarelto, and started on 75 mils an hour of NS. * Because he is reportedly allergic to IV contrast he is also given 50 mg of IV Benadryl and 125 mg of methylprednisolone. He then becomes quite jittery and is given 0.5 of Ativan followed by 1 mg of Ativan. Has had AMS since * He subsequently admitted to the ICU for management of his PE, CHF, altered mental status, and further work-up for his leukocytosis and leg wound. PLAN Pulmonary embolism Dyspnea Hypoxia Elevated d-dimer Obesity Atelectasis * 15mg BID Xarelto for 21 days * Echocardiogram to R/o right heart strain * Telemetry * O2 as needed to keep saturations >90% * Recommend sleep study after discharge as patients significant other reports snoring and apneic spells * Recommend PFT outpatient * RT consultation * IS * Compensation Director consultation * Consider follow-up with hematology * [facility] * Obtain LE US to rule out DVT. CHF (congestive heart failure) - suspected Elevated troponin I level Pleural effusion * Lasix 40mg IVP BID * Echocardiogram * Strict I&O monitoring * Sodium restriction * Telemetry * Monitor I&Os * Re-check troponin in AM * [facility] * Monitor daily labs Hyperglycemia History of prediabetes * Obtain A1C * SS insulin low dose for now * QID AC and Bedtime glucose checks * Diabetic diet * Compensation Director consultation Leukocytosis Elevated CRP * Unknown cause * Differential includes stress rxn vs PNA vs. Leg wound cause * Obtain blood cultures x2 * Monitor CBC * Workup skin wound as below * Obtain procalcitonin * Will hold off abx for now * Monitor CBCs and CRPs High anion gap metabolic acidosis * IV fluids as directed * Monitor labs * Caution with worsening suspected CHF Hypomagnesemia * Supplemented 2 gm in ED * Recheck in AM Peripheral vascular disease Wound of skin * PT wound care * Nursing to monitor * MRSA screen * Culture wound if draining * Blood cultures as above * Will hold off ABX for now Medically noncompliant * Per significant other patient is not taking medications regularly * Was supposed to undergo angiogram but has been refusing * SW/CM consultation * Therapy Aide patient on importance of medical care Altered mental status * Likely iatrogenic but will rule out other causes * Obtain UDS * Obtain ETOH level * Likely worsened by Steroid/Benadryl * Monitor need for sedation Tobacco use disorder * 14mg nicotine patch daily * Cessation counseling * Offer nicotine patches on discharge Mediastinal adenopathy * Chronic and stable * PCP to follow-up Code status: Full code PCP: Dr. Corley with the [place] DVT prophylaxis: Xarelto Disposition: Patient admitted to ICU for management of PE, suspected CHF, altered mental status, and further work-up of leg wound and leukocytosis. LOS likely 3-4 days.
[2021-03-02 08:24] VITALS: PULSE 85
[2021-03-02] MEDS: Rivaroxaban 15 MG Tab PO SCH (08:24)
[2021-03-02] MEDS: Furosemide 40 MG/4 ML VIAL IVPUSH SCH (08:24)
[2021-03-02] MEDS: Acetaminophen 325 MG Tab PO PRN (08:28)
[2021-03-02] MEDS ORDERED: Metoprolol Succinate 25 MG Tab.ER PO SCH (09:00)
[2021-03-02] MEDS ORDERED: Aspirin 81 MG Tab.Chew PO SCH (09:00)
--- NOTE | 2021-03-02 09:17 | PCM.DCSUM1 ---
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 gm% SARS-CoV-2 RNA (ALFONZO) (NEGATIVE) MRSA (PCR) 03/01/21 03/01/21 03/01/21 Range/Units 08:55 08:55 09:17 WBC (4.23-9.07) K/mm3 RBC (4.63-6.08) M/mm3 Hgb (13.7-17.5) gm/dl Hct (40.1-51.0) % MCV (79.0-92.2) fl MCH (25.7-32.2) pg MCHC (32.2-35.5) g/dl RDW Std Deviation (35.1-43.9) fL Plt Count (163-337) K/mm3 MPV (9.4-12.3) fl Neut % (Auto) (34.0-67.9) % Lymph % (Auto) (21.8-53.1) % [place] % (Auto) (5.3-12.2) % Eos % (Auto) (0.8-7.0) Baso % (Auto) (0.1-1.2) % Neut # (Auto) (1.78-5.38) K/mm3 Lymph # (Auto) (1.32-3.57) K/mm3 [place] # (Auto) (0.30-0.82) K/mm3 Eos # (Auto) (0.04-0.54) K/mm3 Baso # (Auto) (0.01-0.08) K/mm3 Manual Slide Review PT (9.7-12.0) SECONDS INR APTT (21.7-31.4) SECONDS D-Dimer, Quantitative (0.19-0.50) mg/L Puncture Site Lt radial ABG pH 7.39 (7.35-7.45) ABG pCO2 35.7 (35.0-45.0) mmHg ABG pO2 61.0 L (80.0-100.0) mmHg ABG HCO3 21.1 L (22.0-26.0) meq/L ABG O2 Saturation 86.8 L (96.0-97.0) % ABG Base Excess -2.7 L (-2-2.0) Vishal Test Positive O2 Delivery Device Nasal cannula Oxygen Flow Rate 2.0 Sodium (136-145) mEq/L Potassium (3.5-5.1) mEq/L Chloride (98-107) mEq/L Carbon Dioxide (21-32) mEq/L Anion Gap (5-15) BUN (7-18) mg/dL Creatinine (0.7-1.3) mg/dL Est Cr Clr Drug Dosing mL/min Estimated GFR (MDRD) (>60) mL/min BUN/Creatinine Ratio (14-18) Glucose (70-99) mg/dL POC Glucose (70-99) mg/dL Hemoglobin A1c 8.0 H ( - 5.6) % Lactic Acid (0.4-2.0) mmol/L Calcium (8.5-10.1) mg/dL Phosphorus (2.6-4.7) mg/dL Magnesium (1.8-2.4) mg/dL Total Bilirubin (0.2-1.0) mg/dL AST (15-37) U/L ALT (16-63) U/L Alkaline Phosphatase (46-116) U/L Troponin I (0.00-0.056) ng/mL C-Reactive Protein (<1.0) mg/dL NT-Pro-B Natriuret Pep (0-125) pg/mL Total Protein (6.4-8.2) g/dl Albumin (3.4-5.0) g/dl Globulin gm/dL Albumin/Globulin Ratio (1-2) Triglycerides (<150) mg/dL Cholesterol (<200) mg/dL LDL Cholesterol Direct (<100) mg/dL HDL Cholesterol (40-59) mg/dL Procalcitonin ng/mL TSH 3rd Generation (0.358-3.74) uIU/mL Urine Opiates Screen (IQQTGV=433) Ur Buprenorphine Scrn (CUTOFF=10) Ur Oxycodone Screen (LLY4XZ=612) Urine Methadone Screen (AWT5HC=440) Ur Propoxyphene Screen (WENMLY=451) Ur Barbiturates Screen (OJBVET=664) Ur Tricyclics Screen (YOVERP=432) Ur Phencyclidine Scrn (CUTOFF=25) Ur Amphetamine Screen (OGLXCL=208) U Methamphetamines Scrn (LLZANC=483) U Benzodiazepines Scrn (HAACJS=121) U Cocaine Metab Screen (RPYTMV=792) U Marijuana (THC) Screen (CUTOFF=50) Ethyl Alcohol 0.00 (0.00) gm% SARS-CoV-2 RNA (ALFONZO) (NEGATIVE) MRSA (PCR) 03/01/21 03/01/21 03/01/21 Range/Units 09:38 09:38 09:50 WBC (4.23-9.07) K/mm3 RBC (4.63-6.08) M/mm3 Hgb (13.7-17.5) gm/dl Hct (40.1-51.0) % MCV (79.0-92.2) fl MCH (25.7-32.2) pg MCHC (32.2-35.5) g/dl RDW Std Deviation (35.1-43.9) fL Plt Count (163-337) K/mm3 MPV (9.4-12.3) fl Neut % (Auto) (34.0-67.9) % Lymph % (Auto) (21.8-53.1) % [place] % (Auto) (5.3-12.2) % Eos % (Auto) (0.8-7.0) Baso % (Auto) (0.1-1.2) % Neut # (Auto) (1.78-5.38) K/mm3 Lymph # (Auto) (1.32-3.57) K/mm3 [place] # (Auto) (0.30-0.82) K/mm3 Eos # (Auto) (0.04-0.54) K/mm3 Baso # (Auto) (0.01-0.08) K/mm3 Manual Slide Review PT 12.1 H (9.7-12.0) SECONDS INR 1.13 APTT 23.4 (21.7-31.4) SECONDS D-Dimer, Quantitative 11.93 H (0.19-0.50) mg/L Puncture Site ABG pH (7.35-7.45) ABG pCO2 (35.0-45.0) mmHg ABG pO2 (80.0-100.0) mmHg ABG HCO3 (22.0-26.0) meq/L ABG O2 Saturation (96.0-97.0) % ABG Base Excess (-2-2.0) Vishal Test O2 Delivery Device Oxygen Flow Rate Sodium (136-145) mEq/L Potassium (3.5-5.1) mEq/L Chloride (98-107) mEq/L Carbon Dioxide (21-32) mEq/L Anion Gap (5-15) BUN (7-18) mg/dL Creatinine (0.7-1.3) mg/dL Est Cr Clr Drug Dosing mL/min Estimated GFR (MDRD) (>60) mL/min BUN/Creatinine Ratio (14-18) Glucose (70-99) mg/dL POC Glucose (70-99) mg/dL Hemoglobin A1c ( - 5.6) % Lactic Acid 1.1 (0.4-2.0) mmol/L Calcium (8.5-10.1) mg/dL Phosphorus (2.6-4.7) mg/dL Magnesium (1.8-2.4) mg/dL Total Bilirubin (0.2-1.0) mg/dL AST (15-37) U/L ALT (16-63) U/L Alkaline Phosphatase (46-116) U/L Troponin I (0.00-0.056) ng/mL C-Reactive Protein (<1.0) mg/dL NT-Pro-B Natriuret Pep (0-125) pg/mL Total Protein (6.4-8.2) g/dl Albumin (3.4-5.0) g/dl Globulin gm/dL Albumin/Globulin Ratio (1-2) Triglycerides (<150) mg/dL Cholesterol (<200) mg/dL LDL Cholesterol Direct (<100) mg/dL HDL Cholesterol (40-59) mg/dL Procalcitonin ng/mL TSH 3rd Generation (0.358-3.74) uIU/mL Urine Opiates Screen (JQEFYU=481) Ur Buprenorphine Scrn (CUTOFF=10) Ur Oxycodone Screen (NSI0CH=281) Urine Methadone Screen (UMN5VZ=772) Ur Propoxyphene Screen (HZSCPP=996) Ur Barbiturates Screen (ABDREB=069) Ur Tricyclics Screen (PYNZEL=166) Ur Phencyclidine Scrn (CUTOFF=25) Ur Amphetamine Screen (ADEZNU=319) U Methamphetamines Scrn (FXBGHO=669) U Benzodiazepines Scrn (QMKVXX=921) U Cocaine Metab Screen (RQGSXQ=873) U Marijuana (THC) Screen (CUTOFF=50) Ethyl Alcohol (0.00) gm% SARS-CoV-2 RNA (ALFONZO) Negative (NEGATIVE) MRSA (PCR) 03/01/21 03/01/21 03/01/21 Range/Units 16:20 17:59 18:04 WBC (4.23-9.07) K/mm3 RBC (4.63-6.08) M/mm3 Hgb (13.7-17.5) gm/dl Hct (40.1-51.0) % MCV (79.0-92.2) fl MCH (25.7-32.2) pg MCHC (32.2-35.5) g/dl RDW Std Deviation (35.1-43.9) fL Plt Count (163-337) K/mm3 MPV (9.4-12.3) fl Neut % (Auto) (34.0-67.9) % Lymph % (Auto) (21.8-53.1) % [place] % (Auto) (5.3-12.2) % Eos % (Auto) (0.8-7.0) Baso % (Auto) (0.1-1.2) % Neut # (Auto) (1.78-5.38) K/mm3 Lymph # (Auto) (1.32-3.57) K/mm3 [place] # (Auto) (0.30-0.82) K/mm3 Eos # (Auto) (0.04-0.54) K/mm3 Baso # (Auto) (0.01-0.08) K/mm3 Manual Slide Review PT (9.7-12.0) SECONDS INR APTT (21.7-31.4) SECONDS D-Dimer, Quantitative (0.19-0.50) mg/L Puncture Site ABG pH (7.35-7.45) ABG pCO2 (35.0-45.0) mmHg ABG pO2 (80.0-100.0) mmHg ABG HCO3 (22.0-26.0) meq/L ABG O2 Saturation (96.0-97.0) % ABG Base Excess (-2-2.0) Vishal Test O2 Delivery Device Oxygen Flow Rate Sodium (136-145) mEq/L Potassium (3.5-5.1) mEq/L Chloride (98-107) mEq/L Carbon Dioxide (21-32) mEq/L Anion Gap (5-15) BUN (7-18) mg/dL Creatinine (0.7-1.3) mg/dL Est Cr Clr Drug Dosing mL/min Estimated GFR (MDRD) (>60) mL/min BUN/Creatinine Ratio (14-18) Glucose (70-99) mg/dL POC Glucose 165 H (70-99) mg/dL Hemoglobin A1c ( - 5.6) % Lactic Acid (0.4-2.0) mmol/L Calcium (8.5-10.1) mg/dL Phosphorus (2.6-4.7) mg/dL Magnesium (1.8-2.4) mg/dL Total Bilirubin (0.2-1.0) mg/dL AST (15-37) U/L ALT (16-63) U/L Alkaline Phosphatase (46-116) U/L Troponin I (0.00-0.056) ng/mL C-Reactive Protein (<1.0) mg/dL NT-Pro-B Natriuret Pep (0-125) pg/mL Total Protein (6.4-8.2) g/dl Albumin (3.4-5.0) g/dl Globulin gm/dL Albumin/Globulin Ratio (1-2) Triglycerides (<150) mg/dL Cholesterol (<200) mg/dL LDL Cholesterol Direct (<100) mg/dL HDL Cholesterol (40-59) mg/dL Procalcitonin ng/mL TSH 3rd Generation (0.358-3.74) uIU/mL Urine Opiates Screen Negative (LOYFPU=645) Ur Buprenorphine Scrn Negative (CUTOFF=10) Ur Oxycodone Screen Negative (SHV2YL=414) Urine Methadone Screen Negative (GVU9OS=046) Ur Propoxyphene Screen Negative (KEVWNQ=245) Ur Barbiturates Screen Negative (RBREWU=397) Ur Tricyclics Screen Negative (MNDQYN=941) Ur Phencyclidine Scrn Negative (CUTOFF=25) Ur Amphetamine Screen Presumptive positive H (CWHRUB=774) U Methamphetamines Scrn Presumptive positive H (HYYJGO=463) U Benzodiazepines Scrn Presumptive positive H (NYSFOR=506) U Cocaine Metab Screen Negative (KLXTMA=252) U Marijuana (THC) Screen Negative (CUTOFF=50) Ethyl Alcohol (0.00) gm% SARS-CoV-2 RNA (ALFONZO) (NEGATIVE) MRSA (PCR) Negative 03/01/21 03/02/21 03/02/21 Range/Units 20:15 04:52 04:52 WBC 13.86 H (4.23-9.07) K/mm3 RBC 4.43 L (4.63-6.08) M/mm3 Hgb 13.8 (13.7-17.5) gm/dl Hct 42.8 (40.1-51.0) % MCV 96.6 H (79.0-92.2) fl MCH 31.2 (25.7-32.2) pg MCHC 32.2 (32.2-35.5) g/dl RDW Std Deviation 51.5 H (35.1-43.9) fL Plt Count 196 (163-337) K/mm3 MPV 10.3 (9.4-12.3) fl Neut % (Auto) 89.1 H (34.0-67.9) % Lymph % (Auto) 5.8 L (21.8-53.1) % [place] % (Auto) 4.7 L (5.3-12.2) % Eos % (Auto) 0 L (0.8-7.0) Baso % (Auto) 0.1 (0.1-1.2) % Neut # (Auto) 12.35 H (1.78-5.38) K/mm3 Lymph # (Auto) 0.81 L (1.32-3.57) K/mm3 [place] # (Auto) 0.65 (0.30-0.82) K/mm3 Eos # (Auto) 0.00 L (0.04-0.54) K/mm3 Baso # (Auto) 0.01 (0.01-0.08) K/mm3 Manual Slide Review Abnormal smear PT (9.7-12.0) SECONDS INR APTT (21.7-31.4) SECONDS D-Dimer, Quantitative (0.19-0.50) mg/L Puncture Site ABG pH (7.35-7.45) ABG pCO2 (35.0-45.0) mmHg ABG pO2 (80.0-100.0) mmHg ABG HCO3 (22.0-26.0) meq/L ABG O2 Saturation (96.0-97.0) % ABG Base Excess (-2-2.0) Vishal Test O2 Delivery Device Oxygen Flow Rate Sodium 139 (136-145) mEq/L Potassium 4.5 (3.5-5.1) mEq/L Chloride 105 (98-107) mEq/L Carbon Dioxide 25 (21-32) mEq/L Anion Gap 13.5 (5-15) BUN 21 H (7-18) mg/dL Creatinine 1.3 (0.7-1.3) mg/dL Est Cr Clr Drug Dosing 66.74 mL/min Estimated GFR (MDRD) 56 (>60) mL/min BUN/Creatinine Ratio 16.2 (14-18) Glucose 163 H (70-99) mg/dL POC Glucose 205 H (70-99) mg/dL Hemoglobin A1c ( - 5.6) % Lactic Acid (0.4-2.0) mmol/L Calcium 8.2 L (8.5-10.1) mg/dL Phosphorus (2.6-4.7) mg/dL Magnesium 2.1 (1.8-2.4) mg/dL Total Bilirubin 0.7 (0.2-1.0) mg/dL AST 36 (15-37) U/L ALT 53 (16-63) U/L Alkaline Phosphatase 84 (46-116) U/L Troponin I 0.043 (0.00-0.056) ng/mL C-Reactive Protein 6.5 H* (<1.0) mg/dL NT-Pro-B Natriuret Pep (0-125) pg/mL Total Protein 6.7 (6.4-8.2) g/dl Albumin 2.9 L (3.4-5.0) g/dl Globulin 3.8 gm/dL Albumin/Globulin Ratio 0.8 L (1-2) Triglycerides (<150) mg/dL Cholesterol (<200) mg/dL LDL Cholesterol Direct (<100) mg/dL HDL Cholesterol (40-59) mg/dL Procalcitonin ng/mL TSH 3rd Generation (0.358-3.74) uIU/mL Urine Opiates Screen (VEEYKU=618) Ur Buprenorphine Scrn (CUTOFF=10) Ur Oxycodone Screen (GUT6YY=101) Urine Methadone Screen (FYY0GK=334) Ur Propoxyphene Screen (NLTKUY=503) Ur Barbiturates Screen (UFSTPA=523) Ur Tricyclics Screen (VBBWZS=008) Ur Phencyclidine Scrn (CUTOFF=25) Ur Amphetamine Screen (ZFUCBL=624) U Methamphetamines Scrn (ASCKJL=345) U Benzodiazepines Scrn (HXXHQO=586) U Cocaine Metab Screen (MWNOCU=941) U Marijuana (THC) Screen (CUTOFF=50) Ethyl Alcohol (0.00) gm% SARS-CoV-2 RNA (ALFONZO) (NEGATIVE) MRSA (PCR) 03/02/21 03/02/21 Range/Units 04:52 06:41 WBC (4.23-9.07) K/mm3 RBC (4.63-6.08) M/mm3 Hgb (13.7-17.5) gm/dl Hct (40.1-51.0) % MCV (79.0-92.2) fl MCH (25.7-32.2) pg MCHC (32.2-35.5) g/dl RDW Std Deviation (35.1-43.9) fL Plt Count (163-337) K/mm3 MPV (9.4-12.3) fl Neut % (Auto) (34.0-67.9) % Lymph % (Auto) (21.8-53.1) % [place] % (Auto) (5.3-12.2) % Eos % (Auto) (0.8-7.0) Baso % (Auto) (0.1-1.2) % Neut # (Auto) (1.78-5.38) K/mm3 Lymph # (Auto) (1.32-3.57) K/mm3 [place] # (Auto) (0.30-0.82) K/mm3 Eos # (Auto) (0.04-0.54) K/mm3 Baso # (Auto) (0.01-0.08) K/mm3 Manual Slide Review PT (9.7-12.0) SECONDS INR APTT (21.7-31.4) SECONDS D-Dimer, Quantitative (0.19-0.50) mg/L Puncture Site ABG pH (7.35-7.45) ABG pCO2 (35.0-45.0) mmHg ABG pO2 (80.0-100.0) mmHg ABG HCO3 (22.0-26.0) meq/L ABG O2 Saturation (96.0-97.0) % ABG Base Excess (-2-2.0) Vishal Test O2 Delivery Device Oxygen Flow Rate Sodium (136-145) mEq/L Potassium (3.5-5.1) mEq/L Chloride (98-107) mEq/L Carbon Dioxide (21-32) mEq/L Anion Gap (5-15) BUN (7-18) mg/dL Creatinine (0.7-1.3) mg/dL Est Cr Clr Drug Dosing mL/min Estimated GFR (MDRD) (>60) mL/min BUN/Creatinine Ratio (14-18) Glucose (70-99) mg/dL POC Glucose 131 H (70-99) mg/dL Hemoglobin A1c ( - 5.6) % Lactic Acid (0.4-2.0) mmol/L Calcium (8.5-10.1) mg/dL Phosphorus (2.6-4.7) mg/dL Magnesium (1.8-2.4) mg/dL Total Bilirubin (0.2-1.0) mg/dL AST (15-37) U/L ALT (16-63) U/L Alkaline Phosphatase (46-116) U/L Troponin I (0.00-0.056) ng/mL C-Reactive Protein (<1.0) mg/dL NT-Pro-B Natriuret Pep (0-125) pg/mL Total Protein (6.4-8.2) g/dl Albumin (3.4-5.0) g/dl Globulin gm/dL Albumin/Globulin Ratio (1-2) Triglycerides 65 (<150) mg/dL Cholesterol 166 (<200) mg/dL LDL Cholesterol Direct 124 H* (<100) mg/dL HDL Cholesterol 32.0 L (40-59) mg/dL Procalcitonin ng/mL TSH 3rd Generation (0.358-3.74) uIU/mL Urine Opiates Screen (YUUBZZ=851) Ur Buprenorphine Scrn (CUTOFF=10) Ur Oxycodone Screen (FUN1SO=475) Urine Methadone Screen (HCP0PQ=544) Ur Propoxyphene Screen (XFJSLB=901) Ur Barbiturates Screen (XRBLRU=971) Ur Tricyclics Screen (PQWNTI=521) Ur Phencyclidine Scrn (CUTOFF=25) Ur Amphetamine Screen (VGYWHA=750) U Methamphetamines Scrn (FDNDJU=443) U Benzodiazepines Scrn (EKTTRS=898) U Cocaine Metab Screen (YVKKGO=706) U Marijuana (THC) Screen (CUTOFF=50) Ethyl Alcohol (0.00) gm% SARS-CoV-2 RNA (ALFONZO) (NEGATIVE) MRSA (PCR) Med Orders - Current: Current Medications Acetaminophen (Acetaminophen 325 Mg Tab) 650 mg PO Q4H PRN PRN Reason: Pain (Mild 1-3)/fever Last Admin: 03/02/21 08:28 Dose: 650 mg Documented by: Albuterol/Ipratropium (Albuterol/Ipratropium 3.0-0.5 Mg/3 Ml Neb Soln) 3 ml NEB Q4H PRN PRN Reason: Shortness Of Breath/wheezing Last Admin: 03/02/21 08:43 Dose: 3 ml Documented by: Aspirin (Aspirin 81 Mg Tab.Chew) 81 mg PO DAILY [facility] Last Admin: 03/02/21 08:24 Dose: 81 mg Documented by: Docusate Sodium (Docusate Sodium 100 Mg Cap) 100 mg PO BID PRN PRN Reason: Constipation Last Admin: 03/02/21 08:28 Dose: 100 mg Documented by: Furosemide (Furosemide 40 Mg/4 Ml Vial) 40 mg IVPUSH BID [facility] Last Admin: 03/02/21 08:24 Dose: 40 mg Documented by: Insulin Human Lispro (Insulin Lispro 100 Unit/Ml 10 Ml Vial) 0 unit SUBCUT QIDACANDBED [facility]; Protocol Last Admin: 03/02/21 06:50 Dose: Not Given Documented by: Magnesium Hydroxide (Magnesium Hydroxide 400 Mg/5 Ml Susp 30 Ml Cup) 30 ml PO Q12H PRN PRN Reason: Constipation Last Admin: 03/01/21 20:16 Dose: 30 ml Documented by: Metoprolol Succinate (Metoprolol Succinate 25 Mg Tab.Er) 25 mg PO DAILY [facility] Last Admin: 03/02/21 08:23 Dose: 25 mg Documented by: Miscellaneous Information (Remove Nicotine Patch) 1 ea TRDERM Q24H [facility] Nicotine (Nicotine 14 Mg/24 Hr Patch) 14 mg TRDERM Q24H [facility] Ondansetron HCl (Ondansetron 4 Mg/2 Ml Sdv) 4 mg IV Q6H PRN PRN Reason: Nausea/Vomiting Oxycodone HCl (Oxycodone 5 Mg Tab) 5 mg PO Q4H PRN PRN Reason: Pain Last Admin: 03/01/21 20:16 Dose: 5 mg Documented by: Rivaroxaban (Rivaroxaban 15 Mg Tab) 15 mg PO BID [facility] Stop: 03/22/21 21:01 Last Admin: 03/02/21 08:24 Dose: 15 mg Documented by: Trazodone HCl (Trazodone 50 Mg Tab) 25 mg PO ONETIME PRN PRN Reason: Anxiety Last Admin: 03/01/21 22:23 Dose: 25 mg Documented by: Discontinued Medications Acetaminophen (Acetaminophen 325 Mg Tab) 975 mg PO ONETIME ONE Stop: 03/01/21 10:49 Last Admin: 03/01/21 11:10 Dose: 975 mg Documented by: Albuterol/Ipratropium (Albuterol/Ipratropium 3.0-0.5 Mg/3 Ml Neb Soln) 3 ml NEB Q4H PRN PRN Reason: Shortness Of Breath/wheezing Last Admin: 03/01/21 09:31 Dose: 3 ml Documented by: Diphenhydramine HCl (Diphenhydramine 50 Mg/Ml Sdv) 50 mg IVPUSH ONETIME ONE Stop: 03/01/21 11:10 Last Admin: 03/01/21 11:25 Dose: 50 mg Documented by: Furosemide (Furosemide 40 Mg/4 Ml Vial) 40 mg IVPUSH NOW ONE Stop: 03/01/21 10:04 Last Admin: 03/01/21 10:25 Dose: 40 mg Documented by: Sodium Chloride (Normal Saline) 1,000 mls @ 75 mls/hr IV ASDIRECTED [facility] Last Admin: 03/01/21 10:00 Dose: 75 mls/hr Documented by: Magnesium Sulfate 2 gm/ Premix 50 mls @ 12.5 mls/hr IV ONETIME ONE Stop: 03/01/21 14:03 Last Admin: 03/01/21 10:25 Dose: 12.5 mls/hr Documented by: Sodium Chloride (Normal Saline) 100 mls @ 75 mls/hr IV ASDIRECTED [facility] Sodium Chloride (Normal Saline) 1,000 mls @ 75 mls/hr IV ASDIRECTED [facility] Stop: 03/02/21 04:49 Iopamidol (Iopamidol 755 Mg/Ml 100 Ml Bottle) 100 ml IVPUSH ONETIME ONE Stop: 03/01/21 10:48 Last Admin: 03/01/21 12:09 Dose: 100 ml Documented by: Lorazepam (Lorazepam 2 Mg/Ml Sdv) 0.5 mg IVPUSH ONETIME ONE Stop: 03/01/21 12:38 Last Admin: 03/01/21 12:50 Dose: 0.5 mg Documented by: Lorazepam (Lorazepam 2 Mg/Ml Sdv) 1 mg IVPUSH ONETIME ONE Stop: 03/01/21 13:42 Last Admin: 03/01/21 15:47 Dose: Not Given Documented by: Methylprednisolone Sodium Succinate (Methylprednisolone Sodium Succinate 125 Mg/2 Ml Sdv) 125 mg IVPUSH ONETIME ONE Stop: 03/01/21 11:09 Last Admin: 03/01/21 11:25 Dose: 125 mg Documented by: Nicotine (Nicotine 14 Mg/24 Hr Patch) 14 mg TRDERM Q24H [facility] Last Admin: 03/01/21 18:24 Dose: Not Given Documented by: Rivaroxaban (Rivaroxaban 15 Mg Tab) 15 mg PO ONETIME ONE Stop: 03/01/21 12:42 Last Admin: 03/01/21 13:20 Dose: 15 mg Documented by: Sodium Chloride (Sodium Chloride 0.9% 10 Ml Syringe) 10 ml FLUSH ONETIME PRN PRN Reason: IV FLUSH Last Admin: 03/01/21 12:09 Dose: 10 ml Documented by: - Exam Quality Assessment: Reports: Supplemental Oxygen (6L), DVT Prophylaxis. Denies: Urine Catheter General: Reports: Alert, Oriented, Cooperative, Mild Distress (Looks short of breath and quite jittery.) HEENT: Reports: Pupils Equal, Pupils Reactive, Mucous Membr. Moist/[place]: Reports: Supple, Trachea Midline Lungs: Reports: Clear to Auscultation, Decreased Breath Sounds. Denies: Normal Respiratory Effort (Tachypneic), Rales, Rhonchi, Wheezing Cardiovascular: Reports: Regular Rate, Regular Rhythm GI/Abdominal Exam: Normal Bowel Sounds, Soft, Non-Tender, No Distention (Male) Exam: Deferred Rectal (Males) Exam: Deferred Back Exam: Reports: Normal Inspection, Decreased Range of Motion Extremities: Normal Inspection, Normal Range of Motion, Non-Tender, Normal Capillary Refill, Pedal Edema (2-3+), Other (Wound on lateral aspect of left leg which has scabbed over. No erythema or drainage at this time. Chronic left lower extremity discoloration consistent with PVD.). No: Leg Pain Skin: Reports: Warm, Dry, Intact Wound/Incisions: Reports: Dressing Dry and Intact, No Drainage. Denies: Erythema Neurological: Reports: No New Focal Deficit Psy/Mental Status: Reports: Alert, Anxious <Juan Diego Oliver Amina - Last Filed: 03/02/21 10:58> Discharge Summary - Hospital Course Free Text/Narrative:: I agree with the above assessment and plan. - Referral to Home Health Primary Care Physician: Ramya Corley MD - Patient Summary/Data Consults: Consultations 03/01/21 13:52 Consult to Case Management/Regional Operations Manager [CONS] Routine Consult to Reed Or Wind Instrument Tuner [CONS] Routine Consult to Spiritual Care [CONS] Routine OT Evaluation and Treatment [CONS] Routine PT Evaluation and Treatment [CONS] Routine PT Evaluation and Treatment [CONS] Routine Respiratory Care Assess and Treatment [CONS] Routine - Patient Data Vitals - Most Recent: Last Vital Signs Temp 97.2 F 03/02/21 04:00 Pulse 85 03/02/21 08:23 Resp 24 H 03/02/21 04:00 BP 112/87 03/02/21 08:23 Pulse Ox 93 L 03/02/21 08:44 I&O - Last 24 hours: Intake & Output 03/01/21 03/02/21 03/02/21 22:59 06:59 14:59 Intake Total 240 200 120 Output Total 400 550 325 Balance -160 -350 -205 Lab Results - Last 24 hrs: Laboratory Results - last 24 hr 03/01/21 03/01/21 03/01/21 Range/Units 08:55 08:55 08:55 WBC (4.23-9.07) K/mm3 RBC (4.63-6.08) M/mm3 Hgb (13.7-17.5) gm/dl Hct (40.1-51.0) % MCV (79.0-92.2) fl MCH (25.7-32.2) pg MCHC (32.2-35.5) g/dl RDW Std Deviation (35.1-43.9) fL Plt Count (163-337) K/mm3 MPV (9.4-12.3) fl Neut % (Auto) (34.0-67.9) % Lymph % (Auto) (21.8-53.1) % [place] % (Auto) (5.3-12.2) % Eos % (Auto) (0.8-7.0) Baso % (Auto) (0.1-1.2) % Neut # (Auto) (1.78-5.38) K/mm3 Lymph # (Auto) (1.32-3.57) K/mm3 [place] # (Auto) (0.30-0.82) K/mm3 Eos # (Auto) (0.04-0.54) K/mm3 Baso # (Auto) (0.01-0.08) K/mm3 Manual Slide Review Puncture Site ABG pH (7.35-7.45) ABG pCO2 (35.0-45.0) mmHg ABG pO2 (80.0-100.0) mmHg ABG HCO3 (22.0-26.0) meq/L ABG O2 Saturation (96.0-97.0) % ABG Base Excess (-2-2.0) Vishal Test O2 Delivery Device Oxygen Flow Rate Sodium (136-145) mEq/L Potassium (3.5-5.1) mEq/L Chloride (98-107) mEq/L Carbon Dioxide (21-32) mEq/L Anion Gap (5-15) BUN (7-18) mg/dL Creatinine (0.7-1.3) mg/dL Est Cr Clr Drug Dosing mL/min Estimated GFR (MDRD) (>60) mL/min BUN/Creatinine Ratio (14-18) Glucose (70-99) mg/dL POC Glucose (70-99) mg/dL Hemoglobin A1c 8.0 H ( - 5.6) % Calcium (8.5-10.1) mg/dL Phosphorus 3.1 (2.6-4.7) mg/dL Magnesium (1.8-2.4) mg/dL Total Bilirubin (0.2-1.0) mg/dL AST (15-37) U/L ALT (16-63) U/L Alkaline Phosphatase (46-116) U/L Troponin I (0.00-0.056) ng/mL C-Reactive Protein (<1.0) mg/dL Total Protein (6.4-8.2) g/dl Albumin (3.4-5.0) g/dl Globulin gm/dL Albumin/Globulin Ratio (1-2) Triglycerides (<150) mg/dL Cholesterol (<200) mg/dL LDL Cholesterol Direct (<100) mg/dL HDL Cholesterol (40-59) mg/dL Procalcitonin 0.07 ng/mL Urine Opiates Screen (YWUVPD=133) Ur Buprenorphine Scrn (CUTOFF=10) Ur Oxycodone Screen (YDB3SB=788) Urine Methadone Screen (KXO4EH=756) Ur Propoxyphene Screen (PHKDDY=685) Ur Barbiturates Screen (WCMFDZ=747) Ur Tricyclics Screen (MVHPOL=328) Ur Phencyclidine Scrn (CUTOFF=25) Ur Amphetamine Screen (CBOAGJ=252) U Methamphetamines Scrn (DKMFRL=632) U Benzodiazepines Scrn (RJIBNS=884) U Cocaine Metab Screen (FOJNKW=366) U Marijuana (THC) Screen (CUTOFF=50) Ethyl Alcohol (0.00) gm% MRSA (PCR) 03/01/21 03/01/21 03/01/21 Range/Units 08:55 09:17 16:20 WBC (4.23-9.07) K/mm3 RBC (4.63-6.08) M/mm3 Hgb (13.7-17.5) gm/dl Hct (40.1-51.0) % MCV (79.0-92.2) fl MCH (25.7-32.2) pg MCHC (32.2-35.5) g/dl RDW Std Deviation (35.1-43.9) fL Plt Count (163-337) K/mm3 MPV (9.4-12.3) fl Neut % (Auto) (34.0-67.9) % Lymph % (Auto) (21.8-53.1) % [place] % (Auto) (5.3-12.2) % Eos % (Auto) (0.8-7.0) Baso % (Auto) (0.1-1.2) % Neut # (Auto) (1.78-5.38) K/mm3 Lymph # (Auto) (1.32-3.57) K/mm3 [place] # (Auto) (0.30-0.82) K/mm3 Eos # (Auto) (0.04-0.54) K/mm3 Baso # (Auto) (0.01-0.08) K/mm3 Manual Slide Review Puncture Site Lt radial ABG pH 7.39 (7.35-7.45) ABG pCO2 35.7 (35.0-45.0) mmHg ABG pO2 61.0 L (80.0-100.0) mmHg ABG HCO3 21.1 L (22.0-26.0) meq/L ABG O2 Saturation 86.8 L (96.0-97.0) % ABG Base Excess -2.7 L (-2-2.0) Vishal Test Positive O2 Delivery Device Nasal cannula Oxygen Flow Rate 2.0 Sodium (136-145) mEq/L Potassium (3.5-5.1) mEq/L Chloride (98-107) mEq/L Carbon Dioxide (21-32) mEq/L Anion Gap (5-15) BUN (7-18) mg/dL Creatinine (0.7-1.3) mg/dL Est Cr Clr Drug Dosing mL/min Estimated GFR (MDRD) (>60) mL/min BUN/Creatinine Ratio (14-18) Glucose (70-99) mg/dL POC Glucose (70-99) mg/dL Hemoglobin A1c ( - 5.6) % Calcium (8.5-10.1) mg/dL Phosphorus (2.6-4.7) mg/dL Magnesium (1.8-2.4) mg/dL Total Bilirubin (0.2-1.0) mg/dL AST (15-37) U/L ALT (16-63) U/L Alkaline Phosphatase (46-116) U/L Troponin I (0.00-0.056) ng/mL C-Reactive Protein (<1.0) mg/dL Total Protein (6.4-8.2) g/dl Albumin (3.4-5.0) g/dl Globulin gm/dL Albumin/Globulin Ratio (1-2) Triglycerides (<150) mg/dL Cholesterol (<200) mg/dL LDL Cholesterol Direct (<100) mg/dL HDL Cholesterol (40-59) mg/dL Procalcitonin ng/mL Urine Opiates Screen Negative (TEOLFO=006) Ur Buprenorphine Scrn Negative (CUTOFF=10) Ur Oxycodone Screen Negative (IBZ2DN=991) Urine Methadone Screen Negative (KYP9MQ=553) Ur Propoxyphene Screen Negative (STWVTJ=948) Ur Barbiturates Screen Negative (FMKNWA=952) Ur Tricyclics Screen Negative (PZNPDU=837) Ur Phencyclidine Scrn Negative (CUTOFF=25) Ur Amphetamine Screen Presumptive positive H (EWZEGU=439) U Methamphetamines Scrn Presumptive positive H (ZEJCOT=900) U Benzodiazepines Scrn Presumptive positive H (WRPGER=499) U Cocaine Metab Screen Negative (XNNXCY=129) U Marijuana (THC) Screen Negative (CUTOFF=50) Ethyl Alcohol 0.00 (0.00) gm% MRSA (PCR) 03/01/21 03/01/21 03/01/21 Range/Units 17:59 18:04 20:15 WBC (4.23-9.07) K/mm3 RBC (4.63-6.08) M/mm3 Hgb (13.7-17.5) gm/dl Hct (40.1-51.0) % MCV (79.0-92.2) fl MCH (25.7-32.2) pg MCHC (32.2-35.5) g/dl RDW Std Deviation (35.1-43.9) fL Plt Count (163-337) K/mm3 MPV (9.4-12.3) fl Neut % (Auto) (34.0-67.9) % Lymph % (Auto) (21.8-53.1) % [place] % (Auto) (5.3-12.2) % Eos % (Auto) (0.8-7.0) Baso % (Auto) (0.1-1.2) % Neut # (Auto) (1.78-5.38) K/mm3 Lymph # (Auto) (1.32-3.57) K/mm3 [place] # (Auto) (0.30-0.82) K/mm3 Eos # (Auto) (0.04-0.54) K/mm3 Baso # (Auto) (0.01-0.08) K/mm3 Manual Slide Review Puncture Site ABG pH (7.35-7.45) ABG pCO2 (35.0-45.0) mmHg ABG pO2 (80.0-100.0) mmHg ABG HCO3 (22.0-26.0) meq/L ABG O2 Saturation (96.0-97.0) % ABG Base Excess (-2-2.0) Vishal Test O2 Delivery Device Oxygen Flow Rate Sodium (136-145) mEq/L Potassium (3.5-5.1) mEq/L Chloride (98-107) mEq/L Carbon Dioxide (21-32) mEq/L Anion Gap (5-15) BUN (7-18) mg/dL Creatinine (0.7-1.3) mg/dL Est Cr Clr Drug Dosing mL/min Estimated GFR (MDRD) (>60) mL/min BUN/Creatinine Ratio (14-18) Glucose (70-99) mg/dL POC Glucose 165 H 205 H (70-99) mg/dL Hemoglobin A1c ( - 5.6) % Calcium (8.5-10.1) mg/dL Phosphorus (2.6-4.7) mg/dL Magnesium (1.8-2.4) mg/dL Total Bilirubin (0.2-1.0) mg/dL AST (15-37) U/L ALT (16-63) U/L Alkaline Phosphatase (46-116) U/L Troponin I (0.00-0.056) ng/mL C-Reactive Protein (<1.0) mg/dL Total Protein (6.4-8.2) g/dl Albumin (3.4-5.0) g/dl Globulin gm/dL Albumin/Globulin Ratio (1-2) Triglycerides (<150) mg/dL Cholesterol (<200) mg/dL LDL Cholesterol Direct (<100) mg/dL HDL Cholesterol (40-59) mg/dL Procalcitonin ng/mL Urine Opiates Screen (MSZLXF=288) Ur Buprenorphine Scrn (CUTOFF=10) Ur Oxycodone Screen (YRA4HZ=333) Urine Methadone Screen (WEK4HZ=396) Ur Propoxyphene Screen (BFIKYO=227) Ur Barbiturates Screen (VUWXGN=785) Ur Tricyclics Screen (BEFOPQ=989) Ur Phencyclidine Scrn (CUTOFF=25) Ur Amphetamine Screen (BRSQEL=983) U Methamphetamines Scrn (RVQOKO=082) U Benzodiazepines Scrn (BYUHJH=182) U Cocaine Metab Screen (UFAUUQ=286) U Marijuana (THC) Screen (CUTOFF=50) Ethyl Alcohol (0.00) gm% MRSA (PCR) Negative 03/02/21 03/02/21 03/02/21 Range/Units 04:52 04:52 04:52 WBC 13.86 H (4.23-9.07) K/mm3 RBC 4.43 L (4.63-6.08) M/mm3 Hgb 13.8 (13.7-17.5) gm/dl Hct 42.8 (40.1-51.0) % MCV 96.6 H (79.0-92.2) fl MCH 31.2 (25.7-32.2) pg MCHC 32.2 (32.2-35.5) g/dl RDW Std Deviation 51.5 H (35.1-43.9) fL Plt Count 196 (163-337) K/mm3 MPV 10.3 (9.4-12.3) fl Neut % (Auto) 89.1 H (34.0-67.9) % Lymph % (Auto) 5.8 L (21.8-53.1) % [place] % (Auto) 4.7 L (5.3-12.2) % Eos % (Auto) 0 L (0.8-7.0) Baso % (Auto) 0.1 (0.1-1.2) % Neut # (Auto) 12.35 H (1.78-5.38) K/mm3 Lymph # (Auto) 0.81 L (1.32-3.57) K/mm3 [place] # (Auto) 0.65 (0.30-0.82) K/mm3 Eos # (Auto) 0.00 L (0.04-0.54) K/mm3 Baso # (Auto) 0.01 (0.01-0.08) K/mm3 Manual Slide Review Abnormal smear Puncture Site ABG pH (7.35-7.45) ABG pCO2 (35.0-45.0) mmHg ABG pO2 (80.0-100.0) mmHg ABG HCO3 (22.0-26.0) meq/L ABG O2 Saturation (96.0-97.0) % ABG Base Excess (-2-2.0) Vishal Test O2 Delivery Device Oxygen Flow Rate Sodium 139 (136-145) mEq/L Potassium 4.5 (3.5-5.1) mEq/L Chloride 105 (98-107) mEq/L Carbon Dioxide 25 (21-32) mEq/L Anion Gap 13.5 (5-15) BUN 21 H (7-18) mg/dL Creatinine 1.3 (0.7-1.3) mg/dL Est Cr Clr Drug Dosing 66.74 mL/min Estimated GFR (MDRD) 56 (>60) mL/min BUN/Creatinine Ratio 16.2 (14-18) Glucose 163 H (70-99) mg/dL POC Glucose (70-99) mg/dL Hemoglobin A1c ( - 5.6) % Calcium 8.2 L (8.5-10.1) mg/dL Phosphorus (2.6-4.7) mg/dL Magnesium 2.1 (1.8-2.4) mg/dL Total Bilirubin 0.7 (0.2-1.0) mg/dL AST 36 (15-37) U/L ALT 53 (16-63) U/L Alkaline Phosphatase 84 (46-116) U/L Troponin I 0.043 (0.00-0.056) ng/mL C-Reactive Protein 6.5 H* (<1.0) mg/dL Total Protein 6.7 (6.4-8.2) g/dl Albumin 2.9 L (3.4-5.0) g/dl Globulin 3.8 gm/dL Albumin/Globulin Ratio 0.8 L (1-2) Triglycerides 65 (<150) mg/dL Cholesterol 166 (<200) mg/dL LDL Cholesterol Direct 124 H* (<100) mg/dL HDL Cholesterol 32.0 L (40-59) mg/dL Procalcitonin ng/mL Urine Opiates Screen (FRPXGE=193) Ur Buprenorphine Scrn (CUTOFF=10) Ur Oxycodone Screen (XPX8CV=192) Urine Methadone Screen (NOT8MM=757) Ur Propoxyphene Screen (ASRAOI=880) Ur Barbiturates Screen (ZWQPSL=603) Ur Tricyclics Screen (MXENQL=392) Ur Phencyclidine Scrn (CUTOFF=25) Ur Amphetamine Screen (KITYRZ=351) U Methamphetamines Scrn (MVRMMK=749) U Benzodiazepines Scrn (LHNJYJ=773) U Cocaine Metab Screen (FBVBUF=479) U Marijuana (THC) Screen (CUTOFF=50) Ethyl Alcohol (0.00) gm% MRSA (PCR) 03/02/21 Range/Units 06:41 WBC (4.23-9.07) K/mm3 RBC (4.63-6.08) M/mm3 Hgb (13.7-17.5) gm/dl Hct (40.1-51.0) % MCV (79.0-92.2) fl MCH (25.7-32.2) pg MCHC (32.2-35.5) g/dl RDW Std Deviation (35.1-43.9) fL Plt Count (163-337) K/mm3 MPV (9.4-12.3) fl Neut % (Auto) (34.0-67.9) % Lymph % (Auto) (21.8-53.1) % [place] % (Auto) (5.3-12.2) % Eos % (Auto) (0.8-7.0) Baso % (Auto) (0.1-1.2) % Neut # (Auto) (1.78-5.38) K/mm3 Lymph # (Auto) (1.32-3.57) K/mm3 [place] # (Auto) (0.30-0.82) K/mm3 Eos # (Auto) (0.04-0.54) K/mm3 Baso # (Auto) (0.01-0.08) K/mm3 Manual Slide Review Puncture Site ABG pH (7.35-7.45) ABG pCO2 (35.0-45.0) mmHg ABG pO2 (80.0-100.0) mmHg ABG HCO3 (22.0-26.0) meq/L ABG O2 Saturation (96.0-97.0) % ABG Base Excess (-2-2.0) Vishal Test O2 Delivery Device Oxygen Flow Rate Sodium (136-145) mEq/L Potassium (3.5-5.1) mEq/L Chloride (98-107) mEq/L Carbon Dioxide (21-32) mEq/L Anion Gap (5-15) BUN (7-18) mg/dL Creatinine (0.7-1.3) mg/dL Est Cr Clr Drug Dosing mL/min Estimated GFR (MDRD) (>60) mL/min BUN/Creatinine Ratio (14-18) Glucose (70-99) mg/dL POC Glucose 131 H (70-99) mg/dL Hemoglobin A1c ( - 5.6) % Calcium (8.5-10.1) mg/dL Phosphorus (2.6-4.7) mg/dL Magnesium (1.8-2.4) mg/dL Total Bilirubin (0.2-1.0) mg/dL AST (15-37) U/L ALT (16-63) U/L Alkaline Phosphatase (46-116) U/L Troponin I (0.00-0.056) ng/mL C-Reactive Protein (<1.0) mg/dL Total Protein (6.4-8.2) g/dl Albumin (3.4-5.0) g/dl Globulin gm/dL Albumin/Globulin Ratio (1-2) Triglycerides (<150) mg/dL Cholesterol (<200) mg/dL LDL Cholesterol Direct (<100) mg/dL HDL Cholesterol (40-59) mg/dL Procalcitonin ng/mL Urine Opiates Screen (QPYXZE=104) Ur Buprenorphine Scrn (CUTOFF=10) Ur Oxycodone Screen (ISE3KF=057) Urine Methadone Screen (WBR3AG=359) Ur Propoxyphene Screen (AJAQYH=155) Ur Barbiturates Screen (TDHKDJ=573) Ur Tricyclics Screen (IMKDKG=416) Ur Phencyclidine Scrn (CUTOFF=25) Ur Amphetamine Screen (JDOJBZ=549) U Methamphetamines Scrn (ZMZBZX=759) U Benzodiazepines Scrn (NTPFIA=336) U Cocaine Metab Screen (VMEBKU=955) U Marijuana (THC) Screen (CUTOFF=50) Ethyl Alcohol (0.00) gm% MRSA (PCR) Med Orders - Current: Current Medications Acetaminophen (Acetaminophen 325 Mg Tab) 650 mg PO Q4H PRN PRN Reason: Pain (Mild 1-3)/fever Last Admin: 03/02/21 08:28 Dose: 650 mg Documented by: Albuterol/Ipratropium (Albuterol/Ipratropium 3.0-0.5 Mg/3 Ml Neb Soln) 3 ml NEB Q4H PRN PRN Reason: Shortness Of Breath/wheezing Last Admin: 03/02/21 08:43 Dose: 3 ml Documented by: Aspirin (Aspirin 81 Mg Tab.Chew) 81 mg PO DAILY [facility] Last Admin: 03/02/21 08:24 Dose: 81 mg Documented by: Atorvastatin Calcium (Atorvastatin 20 Mg Tab) 20 mg PO BEDTIME [facility] Docusate Sodium (Docusate Sodium 100 Mg Cap) 100 mg PO BID PRN PRN Reason: Constipation Last Admin: 03/02/21 08:28 Dose: 100 mg Documented by: Furosemide (Furosemide 40 Mg/4 Ml Vial) 40 mg IVPUSH BID [facility] Last Admin: 03/02/21 08:24 Dose: 40 mg Documented by: Insulin Human Lispro (Insulin Lispro 100 Unit/Ml 10 Ml Vial) 0 unit SUBCUT QIDACANDBED [facility]; Protocol Last Admin: 03/02/21 06:50 Dose: Not Given Documented by: Magnesium Hydroxide (Magnesium Hydroxide 400 Mg/5 Ml Susp 30 Ml Cup) 30 ml PO Q12H PRN PRN Reason: Constipation Last Admin: 03/01/21 20:16 Dose: 30 ml Documented by: Metoprolol Succinate (Metoprolol Succinate 25 Mg Tab.Er) 25 mg PO DAILY [facility] Last Admin: 03/02/21 08:23 Dose: 25 mg Documented by: Miscellaneous Information (Remove Nicotine Patch) 1 ea TRDERM Q24H [facility] Nicotine (Nicotine 14 Mg/24 Hr Patch) 14 mg TRDERM Q24H [facility] Ondansetron HCl (Ondansetron 4 Mg/2 Ml Sdv) 4 mg IV Q6H PRN PRN Reason: Nausea/Vomiting Oxycodone HCl (Oxycodone 5 Mg Tab) 5 mg PO Q4H PRN PRN Reason: Pain Last Admin: 03/01/21 20:16 Dose: 5 mg Documented by: Rivaroxaban (Rivaroxaban 15 Mg Tab) 15 mg PO BID [facility] Stop: 03/22/21 21:01 Last Admin: 03/02/21 08:24 Dose: 15 mg Documented by: Trazodone HCl (Trazodone 50 Mg Tab) 25 mg PO ONETIME PRN PRN Reason: Anxiety Last Admin: 03/01/21 22:23 Dose: 25 mg Documented by: Discontinued Medications Acetaminophen (Acetaminophen 325 Mg Tab) 975 mg PO ONETIME ONE Stop: 03/01/21 10:49 Last Admin: 03/01/21 11:10 Dose: 975 mg Documented by: Albuterol/Ipratropium (Albuterol/Ipratropium 3.0-0.5 Mg/3 Ml Neb Soln) 3 ml NEB Q4H PRN PRN Reason: Shortness Of Breath/wheezing Last Admin: 03/01/21 09:31 Dose: 3 ml Documented by: Diphenhydramine HCl (Diphenhydramine 50 Mg/Ml Sdv) 50 mg IVPUSH ONETIME ONE Stop: 03/01/21 11:10 Last Admin: 03/01/21 11:25 Dose: 50 mg Documented by: Furosemide (Furosemide 40 Mg/4 Ml Vial) 40 mg IVPUSH NOW ONE Stop: 03/01/21 10:04 Last Admin: 03/01/21 10:25 Dose: 40 mg Documented by: Sodium Chloride (Normal Saline) 1,000 mls @ 75 mls/hr IV ASDIRECTED [facility] Last Admin: 03/01/21 10:00 Dose: 75 mls/hr Documented by: Magnesium Sulfate 2 gm/ Premix 50 mls @ 12.5 mls/hr IV ONETIME ONE Stop: 03/01/21 14:03 Last Admin: 03/01/21 10:25 Dose: 12.5 mls/hr Documented by: Sodium Chloride (Normal Saline) 100 mls @ 75 mls/hr IV ASDIRECTED [facility] Sodium Chloride (Normal Saline) 1,000 mls @ 75 mls/hr IV ASDIRECTED [facility] Stop: 03/02/21 04:49 Iopamidol (Iopamidol 755 Mg/Ml 100 Ml Bottle) 100 ml IVPUSH ONETIME ONE Stop: 03/01/21 10:48 Last Admin: 03/01/21 12:09 Dose: 100 ml Documented by: Lorazepam (Lorazepam 2 Mg/Ml Sdv) 0.5 mg IVPUSH ONETIME ONE Stop: 03/01/21 12:38 Last Admin: 03/01/21 12:50 Dose: 0.5 mg Documented by: Lorazepam (Lorazepam 2 Mg/Ml Sdv) 1 mg IVPUSH ONETIME ONE Stop: 03/01/21 13:42 Last Admin: 03/01/21 15:47 Dose: Not Given Documented by: Methylprednisolone Sodium Succinate (Methylprednisolone Sodium Succinate 125 Mg/2 Ml Sdv) 125 mg IVPUSH ONETIME ONE Stop: 03/01/21 11:09 Last Admin: 03/01/21 11:25 Dose: 125 mg Documented by: Nicotine (Nicotine 14 Mg/24 Hr Patch) 14 mg TRDERM Q24H [facility] Last Admin: 03/01/21 18:24 Dose: Not Given Documented by: Rivaroxaban (Rivaroxaban 15 Mg Tab) 15 mg PO ONETIME ONE Stop: 03/01/21 12:42 Last Admin: 03/01/21 13:20 Dose: 15 mg Documented by: Sodium Chloride (Sodium Chloride 0.9% 10 Ml Syringe) 10 ml FLUSH ONETIME PRN PRN Reason: IV FLUSH Last Admin: 03/01/21 12:09 Dose: 10 ml Documented by:
[2021-03-02 11:51] VITALS: BP 110/80
[2021-03-02] MEDS ORDERED: Nicotine 14 MG/24 Hr Patch TRDERM SCH (15:00)
[2021-03-02] MEDS ORDERED: atorvaSTATin 20 MG Tab PO SCH (21:00)
== END 2021-03-02 11:45 | DRG 175 ==
LOC: JD.ED 08:45 → JD.ICU 12:47
PROVIDERS: ADMIT Hospitalist; ATTEND Hospitalist
DX: I26.99 Other pulmonary embolism without acute cor pulmonale (principal); R09.02 Hypoxemia; I50.9 Heart failure, unspecified; I50.21 Acute systolic (congestive) heart failure; J90 Pleural effusion, not elsewhere classified; R06.00 Dyspnea, unspecified; I82.431 Acute embolism and thrombosis of right popliteal vein; I82.812 Embolism and thrombosis of superficial veins of left lower extremity; R59.0 Localized enlarged lymph nodes; R77.8 Other specified abnormalities of plasma proteins; R79.89 Other specified abnormal findings of blood chemistry; E83.42 Hypomagnesemia; Z20.822 Contact with and (suspected) exposure to COVID-19; I73.9 Peripheral vascular disease, unspecified; E66.9 Obesity, unspecified; K21.9 Gastro-esophageal reflux disease without esophagitis; R41.0 Disorientation, unspecified; E78.5 Hyperlipidemia, unspecified; E11.65 Type 2 diabetes mellitus with hyperglycemia; F43.10 Post-traumatic stress disorder, unspecified; G43.709 Chronic migraine without aura, not intractable, without status migrainosus; F15.90 Other stimulant use, unspecified, uncomplicated; F17.210 Nicotine dependence, cigarettes, uncomplicated; R79.82 Elevated C-reactive protein (CRP); G89.29 Other chronic pain; M54.9 Dorsalgia, unspecified; F32.9 Major depressive disorder, single episode, unspecified; F41.9 Anxiety disorder, unspecified; E11.9 Type 2 diabetes mellitus without complications; Z79.899 Other long term (current) drug therapy; Z91.19 Patient's noncompliance with other medical treatment and regimen; Z91.041 Radiographic dye allergy status; R06.02 Shortness of breath
CPT/HCPCS: 36415; 36600; 71045; 71045-26; 71275; 71275-26; 80053; 80061; 80306; 80307; 82803; 82947; 83036; 83605; 83735; 83880; 84100; 84145; 84443; 84484; 85025; 85379; 85610; 85730; 86140; 87040; 87641; 93005; 93010; 93306; 93970; 93970-26; 94640; 94660; 96365; 96366; 96375; 99223; 99239; 99285; 99285-25; A9270-GY; J1200; J1815-GY; J1940; J2060; J2930; J3475; J7030; J7620-GY; Q9967; U0002

== ENCOUNTER 2022-12-03 22:10 | Emergency (ER) | payer OTHER ==
[2022-12-03] MEDS ORDERED: Ondansetron 4 MG/2 ML SDV IVPUSH ONE (22:26)
[2022-12-03] MEDS ORDERED: HYDROmorphone 0.5 MG/0.5 ML Syringe IVPUSH ONE ×2 (22:26→23:29)
[2022-12-03] MEDS ORDERED: Lactated Ringers 1,000 ML IV SCH (22:30)
[2022-12-03] MEDS ORDERED: Sodium Chloride 0.9% 1,000 ML IV SCH (23:30)
[2022-12-03 23:37] LABS: HEMOGLOBIN A1C 12.3 %
[2022-12-04] MEDS ORDERED: Insulin Regular, Human 100 Units/ML 3 ML Vial SUBCUT SCH
[2022-12-04] MEDS ORDERED: Levofloxacin 500 MG Tab PO ONE (00:22)
[2022-12-04] MEDS ORDERED: metroNIDAZOLE 500 MG Tab PO ONE (00:22)
[2022-12-04] MEDS ORDERED: Acetaminophen/HYDROcodone 325-5 MG Tab PO ONE (00:25)
[2022-12-04] MEDS ORDERED: Insulin Regular, Human 100 Units/ML 3 ML Vial SUBCUT ONE (00:34)
[2022-12-04 02:01] VITALS: BP 113/78; PULSE 119
== END 2022-12-04 02:22 | disposition home or self-care (01) ==
LOC: JD.ED 22:10
DX: K52.9 Noninfective gastroenteritis and colitis, unspecified (principal); I11.0 Hypertensive heart disease with heart failure; I50.9 Heart failure, unspecified; E78.00 Pure hypercholesterolemia, unspecified; E11.9 Type 2 diabetes mellitus without complications; E66.9 Obesity, unspecified; Z68.32 Body mass index [BMI] 32.0-32.9, adult; Z91.041 Radiographic dye allergy status; Z91.013 Allergy to seafood; Z79.01 Long term (current) use of anticoagulants; Z79.82 Long term (current) use of aspirin
CPT/HCPCS: 36415; 74176; 80053; 81003; 82009; 82947; 83036; 83605; 83735; 83880; 84484; 85025; 85610; 85730; 93005; 96361; 96374; 96375; 96376; 99284; A9270; J1170; J1815; J2405; J7120; 93010

== ENCOUNTER 2022-12-08 13:47 | Inpatient (IN) | payer OTHER ==
[2022-12-08] MEDS ORDERED: Ondansetron 4 MG/2 ML SDV IVPUSH ONE (14:12)
[2022-12-08] MEDS ORDERED: Sodium Chloride 0.9% 10 ML Syringe FLUSH PRN (14:12)
[2022-12-08] MEDS ORDERED: Sodium Chloride 0.9% 1,000 ML IV ONE (14:15)
[2022-12-08] MEDS ORDERED: HYDROmorphone 1 MG/ML Syringe IVPUSH ONE (14:15)
[2022-12-08] MEDS ORDERED: Iopamidol 612 MG/ML 100 ML Bottle IVPUSH ONE (14:56)
[2022-12-08] MEDS ORDERED: Sodium Chloride 0.9% 10 ML Syringe FLUSH ONE (15:00)
[2022-12-08] MEDS ORDERED: Piperacillin/Tazobactam 4.5 GM in Sodium Chloride 0.9% 100 ML IV ONE (16:15)
[2022-12-08] MEDS ORDERED: hydrALAZINE 20 MG/ML SDV IVPUSH PRN (18:51)
[2022-12-08] MEDS ORDERED: Lactated Ringers 1,000 ML IV SCH (19:00)
[2022-12-08] MEDS ORDERED: Piperacillin/Tazobactam 4.5 GM in Sodium Chloride 0.9% 100 ML IV SCH (19:00)
[2022-12-08] MEDS ORDERED: Ondansetron 4 MG/2 ML SDV IVPUSH PRN (20:00)
[2022-12-08] MEDS: HYDROmorphone 0.5 MG/0.5 ML Syringe IVPUSH PRN (21:05)
[2022-12-08] MEDS: Insulin Lispro 100 Unit/ML 3 ML KwikPen SUBCUT SCH (22:26)
[2022-12-08] MEDS: Loratadine 10 MG Tab PO SCH (22:35)
[2022-12-08] MEDS: Acetaminophen/oxyCODONE 325-5 MG Tab PO PRN (22:36)
[2022-12-09] MEDS: Acetaminophen 325 MG Tab PO PRN (00:10)
[2022-12-09] MEDS: Piperacillin/Tazobactam 4.5 GM in Sodium Chloride 0.9% 100 ML IV SCH ×5 (02:23→15:53)
[2022-12-09] MEDS: HYDROmorphone 0.5 MG/0.5 ML Syringe IVPUSH PRN ×3 (03:41→22:33)
[2022-12-09] MEDS: Acetaminophen/oxyCODONE 325-5 MG Tab PO PRN ×2 (05:55→15:52)
[2022-12-09] MEDS: Aspirin 81 MG Tab.Chew PO SCH (08:24)
[2022-12-09] MEDS: Loratadine 10 MG Tab PO SCH (08:24)
[2022-12-09] MEDS: Insulin Lispro 100 Unit/ML 3 ML KwikPen SUBCUT SCH ×5 (08:27→22:34)
[2022-12-09] MEDS: Carvedilol 12.5 MG Tab PO SCH (08:34)
[2022-12-09] MEDS ORDERED: Diphenhydramine/Lidocaine/MagAl/Simethicone 119 ML Bottle PO PRN (12:06)
[2022-12-09] MEDS: Nystatin Topical Powder 15 GM Bottle TOP SCH ×3 (12:25→22:35)
[2022-12-09] MEDS: Nystatin Susp 100,000 Unit/ML 5 ML UD Cup PO SCH ×3 (12:26→22:35)
[2022-12-09] MEDS: Sodium Chloride 0.9% 1,000 ML IV SCH (14:02)
[2022-12-09] MEDS: Insulin Glargine,Human Rec. Analog 100 Units/ML 3 ML Pen SUBCUT SCH (14:03)
[2022-12-09] MEDS: Rivaroxaban 10 MG Tab PO SCH (17:14)
[2022-12-09 20:15] LABS: C. TRACHOMATIS BY PCR NOT DETECTED; N. GONORRHOEAE BY PCR NOT DETECTED
[2022-12-10] MEDS: Piperacillin/Tazobactam 4.5 GM in Sodium Chloride 0.9% 100 ML IV SCH ×4 (00:51→23:57)
[2022-12-10] MEDS: Sodium Chloride 0.9% 1,000 ML IV SCH ×2 (05:04→19:18)
[2022-12-10] MEDS: Acetaminophen/oxyCODONE 325-5 MG Tab PO PRN ×2 (05:04→16:47)
[2022-12-10 06:11] LABS: HEMOGLOBIN A1C 13.1 %
[2022-12-10] MEDS: Loratadine 10 MG Tab PO SCH (08:23)
[2022-12-10] MEDS: Docusate Sodium 100 MG Cap PO PRN ×2 (08:23→17:42)
[2022-12-10] MEDS: Aspirin 81 MG Tab.Chew PO SCH (08:23)
[2022-12-10] MEDS: Carvedilol 12.5 MG Tab PO SCH (08:24)
[2022-12-10] MEDS: HYDROmorphone 0.5 MG/0.5 ML Syringe IVPUSH PRN ×3 (08:33→22:06)
[2022-12-10] MEDS: Insulin Glargine,Human Rec. Analog 100 Units/ML 3 ML Pen SUBCUT SCH (08:35)
[2022-12-10] MEDS: Insulin Lispro 100 Unit/ML 3 ML KwikPen SUBCUT SCH ×7 (08:36→22:01)
[2022-12-10] MEDS: Nystatin Topical Powder 15 GM Bottle TOP SCH ×2 (08:37→13:51)
[2022-12-10] MEDS: Nystatin Susp 100,000 Unit/ML 5 ML UD Cup PO SCH ×4 (08:42→22:00)
[2022-12-10] MEDS: Polyethylene Glycol 3350 Powder 17 GM Packet PO SCH (11:08)
[2022-12-10] MEDS ORDERED: Insulin Glargine,Human Rec. Analog 100 Units/ML 3 ML Pen SUBCUT ONE (13:15)
[2022-12-10] MEDS: Clotrimazole 1% Crm 30 GM Tube TOP SCH ×2 (13:48→22:00)
[2022-12-10] MEDS: Rivaroxaban 10 MG Tab PO SCH (16:46)
[2022-12-11] MEDS: Acetaminophen/oxyCODONE 325-5 MG Tab PO PRN ×4 (02:05→23:19)
[2022-12-11] MEDS: HYDROmorphone 0.5 MG/0.5 ML Syringe IVPUSH PRN ×3 (05:31→19:51)
[2022-12-11] MEDS: Insulin Lispro 100 Unit/ML 3 ML KwikPen SUBCUT SCH ×7 (08:57→22:09)
[2022-12-11] MEDS: Insulin Glargine,Human Rec. Analog 100 Units/ML 3 ML Pen SUBCUT SCH (08:59)
[2022-12-11] MEDS: Aspirin 81 MG Tab.Chew PO SCH (09:00)
[2022-12-11] MEDS: Clotrimazole 1% Crm 30 GM Tube TOP SCH ×2 (09:00→20:00)
[2022-12-11] MEDS: Loratadine 10 MG Tab PO SCH (09:00)
[2022-12-11] MEDS: Carvedilol 12.5 MG Tab PO SCH (09:00)
[2022-12-11] MEDS: Nystatin Susp 100,000 Unit/ML 5 ML UD Cup PO SCH ×4 (09:06→20:00)
[2022-12-11] MEDS: Polyethylene Glycol 3350 Powder 17 GM Packet PO SCH (09:07)
[2022-12-11] MEDS: Piperacillin/Tazobactam 4.5 GM in Sodium Chloride 0.9% 100 ML IV SCH ×3 (09:44→23:20)
[2022-12-11] MEDS: Sodium Chloride 0.9% 500 ML IV SCH (09:44)
[2022-12-11] MEDS: Rivaroxaban 10 MG Tab PO SCH (16:35)
[2022-12-12] MEDS: HYDROmorphone 0.5 MG/0.5 ML Syringe IVPUSH PRN (04:34)
[2022-12-12] MEDS: Sodium Chloride 0.9% 500 ML IV SCH (04:34)
[2022-12-12] MEDS: Piperacillin/Tazobactam 4.5 GM in Sodium Chloride 0.9% 100 ML IV SCH ×2 (08:26→17:03)
[2022-12-12] MEDS: Aspirin 81 MG Tab.Chew PO SCH (08:26)
[2022-12-12] MEDS: Loratadine 10 MG Tab PO SCH (08:26)
[2022-12-12] MEDS: Clotrimazole 1% Crm 30 GM Tube TOP SCH ×2 (08:26→21:05)
[2022-12-12] MEDS: Nystatin Susp 100,000 Unit/ML 5 ML UD Cup PO SCH ×4 (08:26→21:06)
[2022-12-12] MEDS: Insulin Glargine,Human Rec. Analog 100 Units/ML 3 ML Pen SUBCUT SCH (08:27)
[2022-12-12] MEDS: Insulin Lispro 100 Unit/ML 3 ML KwikPen SUBCUT SCH ×7 (08:28→22:15)
[2022-12-12] MEDS: Carvedilol 12.5 MG Tab PO SCH (08:28)
[2022-12-12] MEDS: Polyethylene Glycol 3350 Powder 17 GM Packet PO SCH (08:29)
[2022-12-12] MEDS: Acetaminophen/oxyCODONE 325-5 MG Tab PO PRN ×2 (10:30→21:06)
[2022-12-12] MEDS: Rivaroxaban 10 MG Tab PO SCH (17:04)
[2022-12-13] MEDS: Piperacillin/Tazobactam 4.5 GM in Sodium Chloride 0.9% 100 ML IV SCH ×3 (00:48→16:28)
[2022-12-13] MEDS: Acetaminophen/oxyCODONE 325-5 MG Tab PO PRN ×3 (05:03→23:26)
[2022-12-13] MEDS: Insulin Lispro 100 Unit/ML 3 ML KwikPen SUBCUT SCH ×7 (08:14→21:43)
[2022-12-13] MEDS: Sodium Chloride 0.9% 500 ML IV SCH (08:24)
[2022-12-13] MEDS: Nystatin Susp 100,000 Unit/ML 5 ML UD Cup PO SCH ×4 (08:29→21:41)
[2022-12-13] MEDS: Polyethylene Glycol 3350 Powder 17 GM Packet PO SCH (08:29)
[2022-12-13] MEDS: Clotrimazole 1% Crm 30 GM Tube TOP SCH ×2 (08:30→21:41)
[2022-12-13] MEDS: Insulin Glargine,Human Rec. Analog 100 Units/ML 3 ML Pen SUBCUT SCH (08:32)
[2022-12-13] MEDS: Carvedilol 12.5 MG Tab PO SCH (08:38)
[2022-12-13] MEDS: Loratadine 10 MG Tab PO SCH (08:39)
[2022-12-13] MEDS: Aspirin 81 MG Tab.Chew PO SCH (08:39)
[2022-12-13] MEDS: HYDROmorphone 0.5 MG/0.5 ML Syringe IVPUSH PRN ×2 (08:42→16:38)
[2022-12-13] MEDS: Rivaroxaban 10 MG Tab PO SCH (16:29)
[2022-12-13] MEDS: Acetaminophen 325 MG Tab PO PRN (17:18)
[2022-12-14] MEDS: Piperacillin/Tazobactam 4.5 GM in Sodium Chloride 0.9% 100 ML IV SCH ×5 (00:39→18:16)
[2022-12-14] MEDS: Acetaminophen 325 MG Tab PO PRN (04:03)
[2022-12-14] MEDS: Insulin Lispro 100 Unit/ML 3 ML KwikPen SUBCUT SCH ×8 (07:29→18:50)
[2022-12-14] MEDS: Insulin Glargine,Human Rec. Analog 100 Units/ML 3 ML Pen SUBCUT SCH ×2 (08:04→18:51)
[2022-12-14] MEDS: Clotrimazole 1% Crm 30 GM Tube TOP SCH (08:06)
[2022-12-14] MEDS: Nystatin Susp 100,000 Unit/ML 5 ML UD Cup PO SCH ×3 (08:06→16:54)
[2022-12-14] MEDS: Loratadine 10 MG Tab PO SCH (08:08)
[2022-12-14] MEDS: Carvedilol 12.5 MG Tab PO SCH (08:08)
[2022-12-14] MEDS: Polyethylene Glycol 3350 Powder 17 GM Packet PO SCH (08:08)
[2022-12-14] MEDS: Aspirin 81 MG Tab.Chew PO SCH (08:11)
[2022-12-14] MEDS: Acetaminophen/oxyCODONE 325-5 MG Tab PO PRN (13:36)
[2022-12-14] MEDS: Sodium Chloride 0.9% 500 ML IV SCH (15:33)
[2022-12-14] MEDS: HYDROmorphone 0.5 MG/0.5 ML Syringe IVPUSH PRN (16:54)
[2022-12-14] MEDS: Rivaroxaban 10 MG Tab PO SCH (16:54)
[2022-12-14 17:22] VITALS: BP 122/83; PULSE 61
== END 2022-12-14 19:06 | disposition home or self-care (01) | DRG 372 ==
LOC: JD.ED 13:47 → JD.MS 16:18
PROVIDERS: ADMIT Internal Medicine; ATTEND Internal Medicine
PROC: 02HV33Z Insertion of Infusion Device into Superior Vena Cava, Percutaneous Approach (ICD-10-PCS; principal; 2022-12-12)
PROC: B548ZZA Ultrasonography of Superior Vena Cava, Guidance (ICD-10-PCS; 2022-12-12)
DX: K63.0 Abscess of intestine (principal); A09 Infectious gastroenteritis and colitis, unspecified; B37.0 Candidal stomatitis; K50.114 Crohn's disease of large intestine with abscess; E11.65 Type 2 diabetes mellitus with hyperglycemia; R13.10 Dysphagia, unspecified; J30.9 Allergic rhinitis, unspecified; H91.90 Unspecified hearing loss, unspecified ear; I50.9 Heart failure, unspecified; E78.00 Pure hypercholesterolemia, unspecified; I11.0 Hypertensive heart disease with heart failure; K21.9 Gastro-esophageal reflux disease without esophagitis; M54.9 Dorsalgia, unspecified; G89.29 Other chronic pain; B35.6 Tinea cruris; K59.00 Constipation, unspecified; F41.9 Anxiety disorder, unspecified; F32.A Depression, unspecified; F43.10 Post-traumatic stress disorder, unspecified; G43.909 Migraine, unspecified, not intractable, without status migrainosus; E66.9 Obesity, unspecified; Z90.89 Acquired absence of other organs; Z91.041 Radiographic dye allergy status; Z86.718 Personal history of other venous thrombosis and embolism; Z91.013 Allergy to seafood; Z79.82 Long term (current) use of aspirin; Z79.899 Other long term (current) drug therapy; Z87.891 Personal history of nicotine dependence
CPT/HCPCS: 36415; 36569; 71045; 71045-26; 74177; 74177-26; 80048; 80053; 81001; 82009; 82947; 83036; 83690; 83735; 85025; 86140; 87040; 87086; 87491; 87591; 93005; 93010; 94760; 94761; 96361; 96365; 96375; 97116-GP; 97161-GP; 97166-GO; 97530-GP; 99223; 99233; 99239; 99284; 99285-25; A9270-GY; J1170; J1815; J1815-GY; J2405; J2543; J3490; J7030; J7040; Q9967

== ENCOUNTER 2022-12-15 14:40 | Emergency (ER) | payer OTHER ==
[2022-12-15] MEDS ORDERED: Sodium Chloride 0.9% 500 ML IV ONE (14:43)
[2022-12-15 16:17] LABS: ESTIMATED GFR 61 mL/min (>60)
[2022-12-15 18:21] VITALS: BP 90/73; PULSE 80
== END 2022-12-15 17:47 | disposition home or self-care (01) ==
LOC: JD.ED 14:40
DX: K50.10 Crohn's disease of large intestine without complications (principal); I95.89 Other hypotension; E11.65 Type 2 diabetes mellitus with hyperglycemia; I11.0 Hypertensive heart disease with heart failure; I50.9 Heart failure, unspecified; E66.9 Obesity, unspecified; Z91.041 Radiographic dye allergy status; Z91.013 Allergy to seafood; Z79.82 Long term (current) use of aspirin; Z79.4 Long term (current) use of insulin; Z79.899 Other long term (current) drug therapy
CPT/HCPCS: 36415; 80053; 84484; 85025; 93005; 96360; 99285; J7030; 93010; 99284

== ENCOUNTER 2022-12-30 05:31 | Emergency (ER) | payer OTHER ==
[2022-12-30] MEDS ORDERED: Cyclobenzaprine 10 MG Tab PO ONE (06:07)
[2022-12-30] MEDS ORDERED: HYDROmorphone 1 MG/ML Syringe IM ONE (06:07)
[2022-12-30 08:08] VITALS: BP 101/73; PULSE 94
== END 2022-12-30 08:12 | disposition home or self-care (01) ==
LOC: JD.ED 05:31
DX: M47.814 Spondylosis without myelopathy or radiculopathy, thoracic region (principal); M43.8X4 Other specified deforming dorsopathies, thoracic region; I11.0 Hypertensive heart disease with heart failure; I50.9 Heart failure, unspecified; E11.9 Type 2 diabetes mellitus without complications; E66.9 Obesity, unspecified; Z68.29 Body mass index [BMI] 29.0-29.9, adult; Z91.041 Radiographic dye allergy status; Z91.013 Allergy to seafood; Z79.01 Long term (current) use of anticoagulants; Z79.82 Long term (current) use of aspirin; Z79.4 Long term (current) use of insulin; Z79.899 Other long term (current) drug therapy
CPT/HCPCS: 36415; 72128; 80053; 85025; 96372; 99285; A9270; J1170; 99284

== ENCOUNTER 2025-08-22 22:02 | Emergency (ER) | payer OTHER ==
[2025-08-22] MEDS: Acetaminophen/oxyCODONE 325-5 MG Tab PO ONE (23:19)
[2025-08-22 23:41] VITALS: BP 94/52; PULSE 66
== END 2025-08-22 23:30 | disposition home or self-care (01) ==
LOC: JD.ED 22:02
DX: S61.412A Laceration without foreign body of left hand, initial encounter (principal); I11.0 Hypertensive heart disease with heart failure; I50.9 Heart failure, unspecified; E11.9 Type 2 diabetes mellitus without complications; E66.9 Obesity, unspecified; M19.90 Unspecified osteoarthritis, unspecified site; Z79.4 Long term (current) use of insulin; Z91.041 Radiographic dye allergy status; Z91.013 Allergy to seafood; Z79.899 Other long term (current) drug therapy; Z68.30 Body mass index [BMI] 30.0-30.9, adult; W26.8XXA Contact with other sharp object(s), not elsewhere classified, initial encounter
CPT/HCPCS: 73120; 99283; A9270